=== PATIENT | female | born 1955 | race Caucasian/White ===

== ENCOUNTER 2017-01-09 22:01 | Emergency (ER) | payer MEDICARE ==
[~2017-01-09] VITALS: Ht 167.6 cm; Wt 82.6 kg
[~2017-01-09 22:01] MED LIST: ALPRAZOLAM0.25 MG PO; ASPIRIN FOR CHI81 MG PO; ATENOLOL25 MG PO; AZELAIC ACID; BENTYL20 MG PO; CARAFATE 1GM TAB1 GM PO; CLARITIN 10MG T10 MG PO; DILAUDID2 MG PO; FLEXERIL10 MG PO; GABAPENTIN 400400 MG PO; IPRATROPIUM BROM3 M1 IH; KAPIDEX60 MG PO; LIPITOR20 MG PO; LOTREL1 CA1 PO; MEDROL 4MG. DOSE4 MG PO; OXYCODONE SR 2020 MG PO; PARAFON FORTE500 MG PO; QVAR0.08 MG/AC IH; VOLTAREN75 MG PO
--- OUTSIDE RECORDS SUMMARY | 2017-01-09 22:21 | External Medical Summary Rpt ---
Author Author , Organization [employer] Address Unknown Phone Unavailable Care Team Providers Care Staff Readiness Officer Name Role Phone FREDI CHAUDHARY Unavailable Unavailable SARATH FREDI SARATH, FREDI Unavailable Unavailable SARATH VIDYA COL, Unavailable Unavailable VIDYA COL BOLIEK NAZANIN, BOLIEK Unavailable Unavailable NAZANIN SOLIZ NAZANIN, SOLIZ Unavailable Unavailable NAZANIN SOLIZ NAZANIN, SOLIZ Unavailable Unavailable NAZANIN BURBERRY JEOVANNY, Unavailable Unavailable BURBERRY JEOVANNY [facility] Unavailable Unavailable AND [facility], [facility] MORTON TIF, MORTON Unavailable Unavailable TIF MORTON TIF, MORTON Unavailable Unavailable [facility], [facility] Unavailable Unavailable [facility], [facility] Unavailable Unavailable MARLENY [facility] Unavailable Unavailable [facility] Un[facility], [facility] BEATRIZ COYNE Unavailable Unavailable ELISHA PATHAK II JUSTIN, ZO Unavailable Unavailable II JUSTIN JESSICA FARMER Unavailable Unavailable [facility], JESSICA FARMER [facility] SHASHANK SMITH, SHASHANK Unavailable Unavailable [facility] Unavailable Unavailable AT [facility], [facility] AT [facility] ROCIO ZUÑIGA Unavailable Unavailable SWAPNA BRIANNA, Unavailable Unavailable SWAPNA BRIANNA SWAPNA BRIANNA, Unavailable Unavailable SWAPNA BRIANNA [facility], Unavailable Unavailable [facility], Unavailable Unavailable [facility] SCIFRES ANG, SCIFRES Unavailable Unavailable ANG SCIFRES ANG, SCIFRES Unavailable Unavailable ANG [facility] Unavailable Unavailable [facility], [facility] Unavailable Unavailable [facility], [facility], Unavailable Unavailable [facility], Unavailable Unavailable [facility] JAKE BRIANNA, JAKE BRIANNA Unavailable Unavailable JAKE BRIANNA, JAKE BRIANNA Unavailable Unavailable DANIEL PAZ, DANIEL Unavailable Unavailable JACKSON PAZ, DANIEL Unavailable Unavailable JACKSON Purpose Continuity of Care Document - 09-07-2013 through 2016 Problems Code Diagnosis DOS Provider Status 54132 SPINAL 12-27-2014 [facility] STENOSIS UNSPEC REGION OTH THAN CERVICAL 7245 UNSPECIFIED 12-27-2014 [facility] BACKACHE 10063 OBSTRUCTIVE 11-26-2014 [facility] 7231 CERVICALGIA 11-15-2014 SELENE EDVINE 7241 PAIN IN 11-15-2014 SEL[facility] DEVINE THORACIC SPINE 7391 NONALLOPATH 11-15-2014 SELENE DEVINE IC LESION OF CERVICAL REGION NEC 7392 NONALLOPATH 11-15-2014 SELENE DEVINE IC LESION OF THORACIC REGION NEC 7393 NONALLOPATH 11-15-2014 SELENE DEVINE IC LESION OF LUMBAR REGION NEC 7397 NONALLOPATH 11-15-2014 SELENE DEVINE IC LESION OF UPPER EXTREMITIES NEC 8472 LUMBAR 11-15-2014 SELENE DEVINE SPRAIN AND STRAIN 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 7244 THORACIC/RAMANA 10-10-2014 [facility] MBOSACRAL H SLEEP AND NEURITIS/RA REHA DICULITIS UNSPEC 35639 PAIN IN 07-30-2014 [facility] LOWER LEG INC V571 OTHER 07-30-2014 [facility] THERAPY INC 4019 UNSPECIFIED 06-01-2014 [facility]SSENTIAL CARDIOLOGY HYPERTENSIO AT CENT N 4148 OTHER SPEC 06-01-2014 [facility] CENT ISCHEMIC HEART DISEASE 7213 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 JESSICA FARMER SPONDYLOSIS [facility] WITHOUT MYELOPATHY 2724 OTHER AND 01-27-2014 [facility] UNSPECIFIED [facility] INC HYPERLIPIDE GIBRAN V5869 LONG-TERM 01-27-2014 [facility] (CURRENT[facility] USE OF INC OTHER MEDICATIONS 4778 ALLERGIC 01-25-2014 [facility] RHINITIS BRIANNA DUE TO OTHER ALLERGEN 98819 CORONARY 01-19-2014 [facility] [place] CORONARY ARTERY 5368 DYSPEPSIA&O 01-19-2014 [facility] THER SPEC HOSPITAL DISORDERS FUNCTION STOMACH 00773 UNSPECIFIED 01-19-2014 [facility] ARTHROPATHY SITE UNSPECIFIED 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 V7651 SPECIAL 01-19-2014 JAKE BRIANNA SCREENING FOR MALIGNANT NEOPLASMS COLON 4011 ESSENTIAL 01-15-2014 [facility] HYPERTENSIO CARDIOLOGY N, BENIGN AT CENT 16123 PES 01-02-2014 DANIEL JACKSON ANSERINUS TENDINITIS OR BURSITIS 58932 OTHER 01-01-2014 [facility] CHRONIC BRIANNA ALLERGIC CONJUNCTIVI TIS 4770 ALLERGIC 01-01-2014 SW[facility] RHINITIS BRIANNA DUE TO POLLEN 57110 EXTRINSIC 01-01-2014 SWAPNA ASTHMA, BRIANNA UNSPECIFIED 3384 CHRONIC 12-29-2013 FREDI CLEMENS PAIN SYNDROME 23830 OSTEOARTHRO 12-29-2013 FREID CLEMENS S INVLV MX SITES BUT NOT SPEC GEN V7612 OTHER 11-15-2013 [facility] MAMMOGRAM 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 4772 ALLERGIC 10-03-2013 SWAP[facility] RHINITIS BRIANNA DUE TO ANIMAL HAIR AND DANDER 09890 ASTHMA, 10-03-2013 [facility] , INC UNSPECIFIED STATUS V727 DIAGNOSTIC 10-03-2013 SWAP[facility] SKIN AND BRIANNA SENSITIZATI ON TESTS 3674 PRESBYOPIA 09-29-2013 SCIFRES ANG 09085 ESOPHAGEAL 09-14-2013 FREDI CLEMENS REFLUX 26330 UNS 09-14-2013 FREDI CLEMENS GASTRITIS&G ASTRODUODIT IS W/O MENTION HEMORR 4619 ACUTE 09-07-2013 FREDI CLEMENS SINUSITIS, UNSPECIFIED 9953 ALLERGY 09-07-2013 FREDI LCEMENS UNSPECIFIED NOT ELSEWHERE CLASSIFIED Procedures Procedure DOS Code Location Performer Comment ELECTRICA A4595 [facility] L 5 STIMULATO R SUPPLIES 2 LEAD PER MONTH ELECTRICA A4595 [facility] L 5 STIMULATO R SUPPLIES 2 LEAD PER MONTH FULL FACE A7030 PUMA PUMA MASK 5 HOME HOME USED MEDICAL MEDICAL W/POS EQUIPME EQUIPME ARWAY PRESS DEVICE EA FILTER A7038 PUMA PUMA DISPBL 5 HOME HOME USED MEDICAL MEDICAL W/POS EQUIPME EQUIPME ARWAY PRESSURE DEVICE TUBING A7037 PUMA BARTHOLOMEW USED WITH 5 HOME HOME POSITIVE MEDICAL MEDICAL AIRWAY EQUIPME EQUIPME PRESSURE DEVICE CHIROPRAC 31783 SELENE MORTON TIC 5 TIF TIF MANIPULAT TOR TX SPINAL 3-4 REGIONS CHIROPRAC 60731 SELENE MORTON TIC 5 TIF TIF MANIPLTV TX EXTRASPIN AL 1/> REGION CHIROPRAC 13508 SELENE MORTON TIC 5 TIF TIF MANIPLTV TX EXTRASPIN AL 1/> REGION CHIROPRAC 12220 SELENE MORTON TIC 5 TIF TIF MANIPULAT TOR TX SPINAL 3-4 REGIONS ELECTRICA A4595 [facility] EMPI INC L 5 STIMULATO R SUPPLIES 2 LEAD PER MONTH LEAD A4557 [facility] EMPI INC WIRES PER 5 PAIR FILTER A7039 PUMA PUMA NON 5 HOME HOME DISPBL MEDICAL MEDICAL USED EQUIPME EQUIPME W/POS ARWAY PRESS DEVICE FILTER A7038 PUMA PUMA DISPBL 5 HOME HOME USED MEDICAL MEDICAL W/POS EQUIPME EQUIPME ARWAY PRESSURE DEVICE POLYSOM 21089 [facility] ASIM 6/>YRS 5 [facility] SLEEP W/CPAP 4/> ADDL BEE ATTND LUMB L0627 PUMA PUMA ORTHOSIS 5 HOME HOME SAGIT MEDICAL MEDICAL CNTRL EQUIPME EQUIPME RIGID A&P PANEL PREFAB TENS E0730 [facility] EMPI INC DEVICE 5 4/MORE LEADS MULTI NERVE STIMULATI ON CHIROPRAC 81735 SELENE MORTON TIC 5 TIF TIF MANIPLTV TX EXTRASPIN AL 1/> REGION CHIROPRAC 27814 SELENE MORTON TIC 5 TIF TIF MANIPULAT TOR TX SPINAL 3-4 REGIONS FILTER A7038 PUMA PUMA DISPBL 4 HOME HOME USED MEDICAL MEDICAL W/POS EQUIPME EQUIPME ARWAY PRESSURE DEVICE TUBING A7037 PUMA PUMA USED WITH 4 HOME HOME POSITIVE MEDICAL MEDICAL AIRWAY EQUIPME EQUIPME PRESSURE DEVICE FACE MASK A7031 PUMA PUMA 4 HOME HOME INTERFACE MEDICAL MEDICAL REPLCMT EQUIPME EQUIPME FULL FACE MASK EA CHIROPRAC 79234 SELENE MORTON TIC 4 TIF TIF MANIPLTV TX EXTRASPIN AL 1/> REGION CHIROPRAC 70262 SELENE MORTON TIC 4 TIF TIF MANIPULAT TOR TX SPINAL 3-4 REGIONS TENS E0730 [facility] INC EMPI INC DEVICE 4 4/MORE LEADS MULTI NERVE STIMULATI ON THERAPEUT 51094 ANATOLIY COPE IC PX 1/> 4 [facility] AREAS INC INC EACH 15 MIN EXERCISES FULL FACE A7030 PUMA PUMA MASK 4 HOME HOME USED MEDICAL MEDICAL W/POS EQUIPME EQUIPME ARWAY PRESS DEVICE EA FILTER A7038 PUMA BARTHOLOMEW DISPBL 4 HOME HOME USED MEDICAL MEDICAL W/POS EQUIPME EQUIPME ARWAY PRESSURE DEVICE HEADGEAR A7035 PUMA PUMA USED 4 HOME HOME W/POSITIV MEDICAL MEDICAL E AIRWAY EQUIPME EQUIPME PRESSURE DEVICE THERAPEUT 86050 ANAT[facility]Y COPE IC PX 1/> 4 [facility] AREAS INC INC EACH 15 MIN EXERCISES APPL 03822 AN[facility] COPE MODALITY 4 [facility] 1/> AREAS INC INC ELEC STIMJ EA 15 MIN CHIROPRAC 97920 SELENE MORTON TIC 4 TIF TIF MANIPLTV TX EXTRASPIN AL 1/> REGION CHIROPRAC 34829 SELENE MORTON TIC 4 TIF TIF MANIPULAT TOR TX SPINAL 3-4 REGIONS THERAPEUT 71361 ANATOLIY COPE IC PX 1/> 4 [facility] AREAS INC INC EACH 15 MIN EXERCISES THERAPEUT 99264 ANATOLIY COPE IC PX 1/> 4 [facility] AREAS INC INC EACH 15 MIN EXERCISES CHIROPRAC 78330 SELENE MORTON TIC 4 TIF TIF MANIPULAT TOR TX SPINAL 3-4 REGIONS CHIROPRAC 95107 SELENE MORTON TIC 4 TIF TIF MANIPLTV TX EXTRASPIN AL 1/> REGION CHIROPRAC 93913 SELENE MORTON TIC 4 TIF TIF MANIPLTV TX EXTRASPIN AL 1/> REGION APPL 63213 SELENE MORTON MODALITY 4 TIF TIF 1/> AREAS ELEC STIMJ UNATTENDE D CHIROPRAC 34326 SELENE MORTON TIC 4 TIF TIF MANIPULAT TOR TX SPINAL 3-4 REGIONS CHIROPRAC 31477 SELENE MORTON TIC 4 TIF TIF MANIPULAT TOR TX SPINAL 3-4 REGIONS APPL 23809 SELENE MORTON MODALITY 4 TIF TIF 1/> AREAS ELEC STIMJ UNATTENDE D CHIROPRAC 48445 SELENE MORTON TIC 4 TIF TIF MANIPLTV TX EXTRASPIN AL 1/> REGION CHIROPRAC 56454 SELENE MORTON TIC 4 TIF TIF MANIPLTV TX EXTRASPIN AL 1/> REGION APPL 65500 SELENE MORTON MODALITY 4 TIF TIF 1/> AREAS ELEC STIMJ UNATTENDE D CHIROPRAC 10141 SELENE MORTON TIC 4 TIF TIF MANIPULAT TOR TX SPINAL 3-4 REGIONS CHIROPRAC 73954 SELENE MORTON TIC 4 TIF TIF MANIPULAT TOR TX SPINAL 3-4 REGIONS CHIROPRAC 18496 SELENE MORTON TIC 4 TIF TIF MANIPLTV TX EXTRASPIN AL 1/> REGION APPL 87420 SELENE MORTON MODALITY 4 TIF TIF 1/> AREAS ELEC STIMJ UNATTENDE D RINGERS J7120 JESSICA FARMER LACTATE 4 E. FARMER CRISTY INFUSION [facility] UP TO 1000 CC RINGERS J7120 JESSICA FARMER LACTATE 4 E. FARMER CRISTY INFUSION MDPLC UP TO 1000 CC LIPID 15787 [facility] COPE PANEL 4 [facility] INC INC HEPATIC 24248 ANATOLIY COPE FUNCTION 4 [facility] PANEL INC INC PROF SVCS 37640 SWAPNA SWAPNA ALLG 4 BRIANNA BRIANNA IMMNTX X W/PRV ALLGIC XTRCS NJXS HUMDIFIR E0562 PUMA BARTHOLOMEW HEATED 4 HOME HOME USED MEDICAL MEDICAL W/POS EQUIPME EQUIPME ARWAY PRESSURE DEVICE ANES 92360 BURBERRY BURBERRY LOWER 4 JEOVANNY JEOVANNY INTESTINE ENDOSCOPY DISTAL DUODENUM INJECTION J[address] LIDOCAINE HCL INTRAVENO US INFUS 10 MG COLOREC G[address] SCR; COLNSCPY NOT MEET HI RISK COLONOSCO 93108 JAKE BRIANNA JAKE BRIANNA PY FLX DX 4 W/COLLJ SPEC WHEN PFRMD PRESSURIZ 56135 [facility] ED/[address] SSURIZED INHALATIO N TREATMENT APPL 77784 [facility] COPE MODALITY 4 [facility] 1/> AREAS INC INC ELEC STIMJ UNATTENDE D APPLICATI 63434 ANAT[facility] COPE ON 4 [facility] MODALITY INC INC 1/> AREAS HOT/COLD PACKS APPL 15841 ANAT[facility] COPE MODALITY 4 [facility] 1/> AREAS INC INC ULTRASOUN D EA 15 MIN THERAPEUT 76286 ANATOLIY COPE IC PX 1/> 4 [facility] AREAS INC INC EACH 15 MIN EXERCISES PHYSICAL 15033 ANATOLIY HENDERSON THERAPY 4 [facility]OS[facility] ELISHA EVALUATIO INC N PREPJ& 63046 SWAPNA SWAPNA ALLERGEN 4 BRIANNA BRIANNA IMMUNOTHE RAPY 1/CAMPUS SECURITY DIRECTOR ANTIGEN TUBING A7037 PUMA PUMA USED WITH 4 HOME HOME POSITIVE MEDICAL MEDICAL AIRWAY EQUIPME EQUIPME PRESSURE DEVICE FULL FACE A7030 PUMA PUMA MASK 4 HOME HOME USED MEDICAL MEDICAL W/POS EQUIPME EQUIPME ARWAY PRESS DEVICE EA HEADGEAR A7035 PUMA PUMA USED 4 HOME HOME W/POSITIV MEDICAL MEDICAL E AIRWAY EQUIPME EQUIPME PRESSURE DEVICE FILTER A7039 PUMA PUMA NON 4 HOME HOME DISPBL MEDICAL MEDICAL USED EQUIPME EQUIPME W/POS ARWAY PRESS DEVICE FILTER A7038 PUMA PUMA DISPBL 4 HOME HOME USED MEDICAL MEDICAL W/POS EQUIPME EQUIPME ARWAY PRESSURE DEVICE RADIOLOGI 30557 DANIEL SANCHEZ C EXAM 4 JACKSON JACKSON KNEE COMPLETE 4/MORE VIEWS SPMTRY 66467 SWAPNA SWAPNA W/VC 4 BRIANNA BRIANNA EXPIRATOR Y CELESTE W/WO MXML VOL VNTJ CHIROPRAC 90057 VIDYA DASILVA TIC 4 COL COL MANIPULAT TOR TX SPINAL 3-4 REGIONS MANUAL 87407 VIDYA DASILVA THERAPY 4 COL COL TQS 1/> REGIONS EACH 15 MINUTES MANUAL 99523 VIDYA DASILVA THERAPY 4 COL COL TQS 1/> REGIONS EACH 15 MINUTES APPL 43820 VIDYA COTTERON MODALITY 4 COL COL 1/> AREAS TRACTION MECHANICA L APPL 20869 VIDYA COTTERON MODALITY 4 COL COL 1/> AREAS ELEC STIMJ UNATTENDE D CHIROPRAC 67137 VIDYA COTTERON TIC 4 COL COL MANIPULAT TOR TX SPINAL 3-4 REGIONS SCREENING G0202 SHASHANK ENCARNACION 4 MAR MAR MAMMOGRAP HY RICHY INCL CAD WHEN PERFORMD 60556 SHASHANK ENCARNACION AIDED 4 MAR MAR DETECTION SCREENING MAMMOGRAP HY APPL 93454 VIDYA COTTERON MODALITY 4 COL COL 1/> AREAS TRACTION MECHANICA L MANUAL 07105 VIDYA COTTERON THERAPY 4 COL COL TQS 1/> REGIONS EACH 15 MINUTES APPL 91722 VIDYA COTTERON MODALITY 4 COL COL 1/> AREAS ELEC STIMJ UNATTENDE D CHIROPRAC 29225 VIDYA COTTERON TIC 4 COL COL MANIPULAT TOR TX SPINAL 3-4 REGIONS APPL 77564 VIDYA COTTERON MODALITY 4 COL COL 1/> AREAS ELEC STIMJ UNATTENDE D MANUAL 34174 VIDYA COTTERON THERAPY 4 COL COL TQS 1/> REGIONS EACH 15 MINUTES CHIROPRAC 42041 VIDYA COTTERON TIC 4 COL COL MANIPULAT TOR TX SPINAL 3-4 REGIONS APPL 72254 VIDYA COTTERON MODALITY 4 COL COL 1/> AREAS TRACTION MECHANICA L APPL 25450 VIDYA COTTERON MODALITY 4 COL COL 1/> AREAS TRACTION MECHANICA L CHIROPRAC 66840 VIDYA COTTERON TIC 4 COL COL MANIPULAT TOR TX SPINAL 3-4 REGIONS MANUAL 02917 VIDYA HOPKINSESON THERAPY 4 COL COL TQS 1/> REGIONS EACH 15 MINUTES APPL 63668 VIDYA COTTERON MODALITY 4 COL COL 1/> AREAS ELEC STIMJ UNATTENDE D DRUG SCR G0434 ROCIO HAM ROCIO HAM NOT 4 CHROMATOG RAPHIC; ANY NUMBER PT ENC BRNCDILAT 85668 SWAPNA SWAPNA RSPSE 4 BRIANNA BRIANNA SPMTRY PRE&POST- BRNCDILAT ADMN SPACR A4627 MT MED MT MED BAG/RESRV 4 EQUIPMENT EQUIPMENT OR W/WO INC INC MASK W/METRD DOSE INHAL TUBING A7037 SWAPNA SWAPNA USED WITH 4 BRIANNA BRIANNA POSITIVE AIRWAY PRESSURE DEVICE PRESSURIZ 38624 SWAPNA SWAPNA ED/NONPRE 4 BRIANNA BRIANNA SSURIZED INHALATIO N TREATMENT PERCUTANE 92864 SWAPNA SWAPNA OUS TESTS 4 BRIANNA BRIANNA W/ALLERGE ANCA EXTRACTS INTRACUTA 98071 SWAPNA SWAPNA NEOUS 4 BRIANNA BRIANNA TESTS W/ALLERGE ANCA EXTRACTS DEMO&/HYUN 12664 SWAPNA SWAPNA L OF PT 4 BRIANNA BRIANNA UTILIZ AERSL GEN/NEB/I NHLR/IP DETERMINA 56770 SCIFRES SCIFRES TION 4 ANG ANG REFRACTIV E STATE OPHTH 88244 SCIFRES SCIFRES MEDICAL 4 ANG ANG XM&EVAL COMPRE NEW PT 1/> VST DRUG SCR G0434 ROCIO BOBO NOT 4 CHROMATOG RAPHIC; ANY NUMBER PT ENC APPL 79404 VIDYA DASILVA MODALITY 4 COL COL 1/> AREAS TRACTION MECHANICA L MANUAL 52389 VIDYA DASILVA THERAPY 4 COL COL TQS 1/> REGIONS EACH 15 MINUTES CHIROPRAC 29702 VIDYA DASILVA TIC 4 COL COL MANIPULAT TOR TX SPINAL 3-4 REGIONS APPLICATI 71927 VIDYA DASILVA ON 4 COL COL MODALITY 1/> AREAS HOT/COLD PACKS APPL 22052 VIDYA DASILVA MODALITY 4 COL COL 1/> AREAS ELEC STIMJ UNATTENDE D FILTER A7038 PUMA BARTHOLOMEW DISPBL 4 HOME HOME USED MEDICAL MEDICAL W/POS EQUIPME EQUIPME ARWAY PRESSURE DEVICE TUBING A7037 PUMA BARTHOLOMEW USED WITH 4 HOME HOME POSITIVE MEDICAL MEDICAL AIRWAY EQUIPME EQUIPME PRESSURE DEVICE FILTER A7039 PUMA BARTHOLOMEW NON 4 HOME HOME DISPBL MEDICAL MEDICAL USED EQUIPME EQUIPME W/POS ARWAY PRESS DEVICE HEADGEAR A7035 PUMA DORADORELL USED 4 HOME HOME W/POSITIV MEDICAL MEDICAL E AIRWAY EQUIPME EQUIPME PRESSURE DEVICE NASL A7034 PUMA BARTHOLOMEW INTRFCE 4 HOME HOME POS ARWAY MEDICAL MEDICAL PRSS EQUIPME EQUIPME DEVC W/WO HEAD STRAP Encounters Encounter Start End Date Code Location Performer Type Date OFFICE 85393 SELENE COFFEY 5 5 [facility] T VISIT 10 MINUTES OFFICE 08100 [facility] PATHAK II OUTPATIEN 5 5 [facility] SLEEP JUSTIN T VISIT AND REHA 15 MINUTES [facility] - 5 5 [facility] - 4 5 [facility] [address] [facility] VISIT CARDIOLOG 15 Y AT CENT MINUTES OFFICE 45495 SELENE COFFEY 4 4 TIF TIF T NEW 30 MINUTES [facility]OSPITAL [facility] - 4 4 [facility] - 4 4 [facility] NAZ[facility]N VIS[facility] C[facility]IOLOG 15 Y AT CENT MINUTES [facility]OSPITAL [facility] - 4 4 [facility]PATI[facility] OFFICE 87231 DANIEL SANCHEZ CONSULTAT 4 4 JACKSON JACKSON RODRIGUEZ NEW/ESTAB PATIENT 60 MIN OFFICE 60752 SWAPNACRISTIANA BARCENAS OUTPATIEN 4 4 BRIANNA BRIANNA T VISIT 25 MINUTES OFFICE 23481 FREDI RAI OUTPATIEN 4 4 SARATH SARATH T VISIT 15 MINUTES OFFICE 45591 ROCIOREGLA BOBO [facility] OUTPATIEN 4 4 T VISIT 15 MINUTES OFFICE 71173 ROCIO BOBO [facility] OUTPATIEN 4 4 T VISIT 15 MINUTES OFFICE 71626 VIDYA DASILVA OUTPATIEN 4 4 COL COL T VISIT 10 MINUTES OFFICE 39880 [facility] OUTPATIEN 4 [address] [facility] - 4 4 [facility] OUTPATIEN T OFFICE 33600 [facility] OUTPATIEN 4 4 T VISIT 15 MINUTES OFFICE 70366 MARTÍNEZ SOLIZ OUTPATIEN 4 4 NAZANIN NAZANIN T NEW 30 MINUTES OFFICE 11245 [facility] OUTPATIEN 4 4 T VISIT 15 MINUTES OFFICE 26015 [facility] OUTPATIEN 4 4 T VISIT 15 MINUTES OFFICE 87550 SWAPNA BARCENAS CONSULTAT 4 4 BRIANNA BRIANNA ION NEW/ESTAB PATIENT 80 MIN OFFICE 54676 VIDYA DASILVA OUTPATIEN 4 4 COL COL T NEW 20 MINUTES OFFICE 54889 ROCIOREGLA [facility] OUTPATIEN 4 4 T NEW 45 MINUTES OFFICE 47379 ABDULKADIRRODRIGUE FREDI OUTPATIEN 4 4 SARATH SARATH T VISIT 15 MINUTES OFFICE 38580 FREDI RAI OUTPATIEN 4 4 SARATH SARATH T VISIT 15 MINUTES
--- OUTSIDE RECORDS SUMMARY | 2017-01-09 22:21 | External Medical Summary Rpt ---
Author Author , Organization [employer] Address Unknown Phone Unavailable Care Team Providers Care Game Advisor Name Role Phone FREDI CHAUDHARY Unavailable Unavailable [...] [facility] Unavailable Unavailable EILSHA PATHAK II JUSTIN, ZO Unavailable Unavailable II JUSTIN JESSICA FARMER Unavailable Unavailable MDPLC, JESSICA FARMER MDPLC SHASHANK SMITH, SHASHANK Unavailable Unavailable [facility] Unavailable Unavailable AT [facility], [facility] AT [facility] ROCIO ZUÑIGA Unavailable Unavailable SWAPNA BRIANNA, Unavailable [...] Unavailable Unavailable [facility], [facility], Unavailable Unavailable [facility], Unavailable Unavailable [facility] JAKE BRIANNA, JAKE BRIANNA Unavailable Unavailable JAKE BRIANNA, JAKE BRIANNA Unavailable Unavailable DANIEL PAZ, DANIEL Unavailable Unavailable JACKSON PAZ, DANIEL Unavailable Unavailable JACKSON Purpose Continuity of Care Document - 09-07-2013 through 2016 Problems Code Diagnosis DOS Provider Status 97926 SPINAL 12-27-2014 [facility] STENOSIS UNSPEC REGION OTH THAN CERVICAL 7245 UNSPECIFIED 12-27-2014 [facility] BACKACHE 98416 OBSTRUCTIVE 11-26-2014 [facility] 7231 CERVICALGIA 11-15-2014 SELENE DEVINE 7241 PAIN IN 11-15-2014 SELENE DEVINE THORACIC SPINE 7391 NONALLOPATH 11-15-2014 SELENE DEVINE IC LESION OF CERVICAL REGION NEC 7392 NONALLOPATH 11-15-2014 SELENE DEVINE IC LESION OF THORACIC REGION NEC 7393 NONALLOPATH 11-15-2014 SELENE DEVINE IC LESION OF LUMBAR REGION NEC 7397 NONALLOPATH 11-15-2014 SELENE DEVINE IC LESION OF UPPER EXTREMITIES NEC 8472 LUMBAR 11-15-2014 SELENE DEVINE SPRAIN AND STRAIN 00959 DEGEN 10-10-2014 [facility]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 CHRONIC AT CENT ISCHEMIC HEART DISEASE 7213 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 JESSICA FARMER SPONDYLOSIS MDPLC WITHOUT MYELOPATHY 2724 OTHER AND 01-27-2014 [facility] UNSPECIFIED [facility] HYPERLIPIDE GIBRAN V5869 LONG-TERM 01-27-2014 [facility] (CURRENT) [facility] USE OF INC OTHER MEDICATIONS 4778 ALLERGIC 01-25-2014 SW[facility] RHINITIS BRIANNA DUE TO OTHER ALLERGEN 33821 CORONARY 01-19-2014 [facility] [place] CORONARY ARTERY 5368 DYSPEPSIA&O 01-19-2014 [facility] THER SPEC HOSPITAL DISORDERS FUNCTION STOMACH 30020 UNSPECIFIED 01-19-2014 [facility] ARTHROPATHY SITE UNSPECIFIED 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 UNSPEC V7651 SPECIAL 01-19-2014 JAKE BRIANNA SCREENING FOR MALIGNANT NEOPLASMS COLON 4011 ESSENTIAL 01-15-2014 [facility] HYPERTENSIO CARDIOLOGY N, BENIGN AT CENT 74153 PES 01-02-2014 DANIEL JACKSON ANSERINUS TENDINITIS OR BURSITIS 66043 OTHER 01-01-2014 [facility] CHRONIC BRIANNA ALLERGIC CONJUNCTIVI TIS 4770 ALLERGIC 01-01-2014 SWAP[facility] RHINITIS BRIANNA DUE TO POLLEN 54917 EXTRINSIC 01-01-2014 SWAPNA ASTHMA, BRIANNA UNSPECIFIED 3384 CHRONIC 12-29-2013 FREDI CLEMENS PAIN SYNDROME 77903 OSTEOARTHRO 12-29-2013 FREDI CLEMENS S INVLV MX SITES BUT NOT SPEC GEN V7612 OTHER 11-15-2013 [facility] MAMMOGRAM 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 27299 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 4772 ALLERGIC 10-03-2013 SWAP[facility] RHINITIS BRIANNA DUE TO ANIMAL HAIR AND DANDER 65207 ASTHMA, 10-03-2013 [facility] UNSPECIFIED EQUIPMENT , INC UNSPECIFIED STATUS V727 DIAGNOSTIC 10-03-2013 SWAP[facility] SKIN AND BRIANNA SENSITIZATI ON TESTS 3674 PRESBYOPIA 09-29-2013 SCIFRES ANG 51902 ESOPHAGEAL 09-14-2013 FREDI CLEMENS REFLUX 70740 UNS 09-14-2013 FREDI CLEMENS GASTRITIS&G ASTRODUODIT IS W/O MENTION HEMORR 4619 ACUTE 09-07-2013 FREDI CLEMENS SINUSITIS, UNSPECIFIED 9953 ALLERGY 09-07-2013 FREDI CLEMENS UNSPECIFIED NOT ELSEWHERE CLASSIFIED Procedures Procedure DOS [...] MEDICAL AIRWAY EQUIPME EQUIPME PRESSURE DEVICE CHIROPRAC 71709 SELENE MORTON TIC 5 TIF TIF MANIPULAT TOR TX SPINAL 3-4 REGIONS CHIROPRAC 50065 SELENE MORTON TIC 5 TIF TIF MANIPLTV TX EXTRASPIN AL 1/> REGION CHIROPRAC 78549 SELENE MORTON TIC 5 TIF TIF MANIPLTV TX EXTRASPIN AL 1/> REGION CHIROPRAC 97800 SELENE MORTON TIC 5 TIF TIF MANIPULAT [...] W/POS EQUIPME EQUIPME ARWAY PRESSURE DEVICE POLYSOM 24376 [facility] ASIM 6/>YRS 5 [facility] SLEEP W/CPAP 4/> ADDL BEE ATTND LUMB L0627 [facility] PU[facility] ORTHOSIS 5 HOME HOME SAGIT MEDICAL MEDICAL CNTRL EQUIPME EQUIPME RIGID A&P PANEL PREFAB TENS E0730 [facility] EMPI INC DEVICE 5 4/MORE LEADS MULTI NERVE STIMULATI ON CHIROPRAC 47815 SELENE MORTON TIC 5 TIF TIF MANIPLTV TX EXTRASPIN AL 1/> REGION CHIROPRAC 87240 SELENE MORTNO TIC 5 TIF TIF MANIPULAT TOR TX SPINAL 3-4 REGIONS FILTER A7038 PUMA PUMA DISPBL 4 HOME HOME USED MEDICAL MEDICAL W/POS EQUIPME EQUIPME ARWAY PRESSURE DEVICE TUBING A7037 PU[facility] PUMA USED WITH 4 HOME HOME POSITIVE MEDICAL MEDICAL AIRWAY EQUIPME EQUIPME PRESSURE DEVICE FACE MASK A7031 PUMA PUMA 4 HOME HOME INTERFACE MEDICAL MEDICAL REPLCMT EQUIPME EQUIPME FULL FACE MASK EA CHIROPRAC 15993 SELENE MORTON TIC 4 TIF TIF MANIPLTV TX EXTRASPIN AL 1/> REGION CHIROPRAC 54401 SELENE MORTON TIC 4 TIF TIF MANIPULAT TOR TX SPINAL 3-4 REGIONS TENS E0730 [facility] INC EMPI INC DEVICE 4 4/MORE LEADS MULTI NERVE STIMULATI ON THERAPEUT 14239 ANATOLIY COPE IC PX 1/> 4 MEM [...] E AIRWAY EQUIPME EQUIPME PRESSURE DEVICE THERAPEUT 31740 ANATOLIY COPE IC PX 1/> 4 [facility] AREAS INC INC EACH 15 MIN EXERCISES APPL 95994 ANATOLIY COPE MODALITY 4 [facility] 1/> AREAS INC INC ELEC STIMJ EA 15 MIN CHIROPRAC 64480 SELENE MORTON TIC 4 TIF TIF MANIPLTV TX EXTRASPIN AL 1/> REGION CHIROPRAC 92384 SELENE MORTON TIC 4 TIF TIF MANIPULAT TOR TX SPINAL 3-4 REGIONS THERAPEUT 70167 ANATOLIY COPE IC PX 1/> 4 [facility] AREAS INC INC EACH 15 MIN EXERCISES THERAPEUT 74032 ANATOLIY COPE IC PX 1/> 4 [facility] AREAS INC INC EACH 15 MIN EXERCISES CHIROPRAC 51135 SELENE MORTON TIC 4 TIF TIF MANIPULAT TOR TX SPINAL 3-4 REGIONS CHIROPRAC 08665 SELENE MORTON TIC 4 TIF TIF MANIPLTV TX EXTRASPIN AL 1/> REGION CHIROPRAC 25100 SELENE MORTON TIC 4 TIF TIF MANIPLTV TX EXTRASPIN AL 1/> REGION APPL 35023 SELENE MORTON MODALITY 4 TIF TIF 1/> AREAS ELEC STIMJ UNATTENDE D CHIROPRAC 35021 SELENE MORTON TIC 4 TIF TIF MANIPULAT TOR TX SPINAL 3-4 REGIONS CHIROPRAC 63962 SELENE MORTON TIC 4 TIF TIF MANIPULAT TOR TX SPINAL 3-4 REGIONS APPL 83274 SELENE MORTON MODALITY 4 TIF TIF 1/> AREAS ELEC STIMJ UNATTENDE D CHIROPRAC 74648 SELENE MORTON TIC 4 TIF TIF MANIPLTV TX EXTRASPIN AL 1/> REGION CHIROPRAC 25760 SELENE MORTON TIC 4 TIF TIF MANIPLTV TX EXTRASPIN AL 1/> REGION APPL 20868 SELENE MORTON MODALITY 4 TIF TIF 1/> AREAS ELEC STIMJ UNATTENDE D CHIROPRAC 89556 SELENE MORTON TIC 4 TIF TIF MANIPULAT TOR TX SPINAL 3-4 REGIONS CHIROPRAC 04481 SELENE MORTON TIC 4 TIF TIF MANIPULAT TOR TX SPINAL 3-4 REGIONS CHIROPRAC 45883 SELENE MORTON TIC 4 TIF TIF MANIPLTV TX EXTRASPIN AL 1/> REGION APPL 19349 SELENE MORTON MODALITY 4 TIF TIF 1/> AREAS ELEC STIMJ UNATTENDE D RINGERS J7120 JESSICA FARMER LACTATE 4 E. FARMER CRISTY INFUSION MDPLC UP TO 1000 CC RINGERS J7120 JESSICA FARMER LACTATE 4 E. FARMER CRISTY INFUSION MDPLC UP TO 1000 CC LIPID 97305 ANATOLIY COPE PANEL 4 [facility] INC INC HEPATIC 40283 ANATOLIY COPE FUNCTION 4 [facility] PANEL INC INC PROF SVCS 74542 SWAPNA SWAPNA ALLG 4 BRIANNA BRIANNA IMMNTX X W/PRV ALLGIC XTRCS NJXS HUMDIFIR E0562 [facility] BARTHOLOMEW HEATED 4 HOME HOME USED MEDICAL MEDICAL W/POS EQUIPME EQUIPME ARWAY PRESSURE DEVICE ANES 26100 BURBERRY BURBERRY LOWER 4 JEOVANNY JEOVANNY INTESTINE ENDOSCOPY DISTAL DUODENUM INJECTION J[address] LIDOCAINE HCL INTRAVENO US INFUS 10 MG COLOREC G[address] SCR; COLNSCPY NOT MEET HI RISK COLONOSCO 05299 JAKE BRIANNA JAKE BRIANNA PY FLX DX 4 W/COLLJ SPEC WHEN PFRMD PRESSURIZ 75372 [facility] ED/[address] SSURIZED INHALATIO N TREATMENT APPL 25861 ANATOLIY COPE MODALITY 4 [facility] 1/> AREAS INC INC ELEC STIMJ UNATTENDE D APPLICATI 57951 ANATOLIY COPE ON 4 [facility] MODALITY INC INC 1/> AREAS HOT/COLD PACKS APPL 42215 ANATOLIY OCPE MODALITY 4 [facility] 1/> AREAS INC INC ULTRASOUN D EA 15 MIN THERAPEUT 05863 ANATOLIY COPE IC PX 1/> 4 [facility] ARE[facility] INC INC EACH 15 MIN EXERCISES PHYSICAL 24150 ANATOLIY HENDERSON THERAPY 4 [facility] ELISHA EVALUATIO INC N PREPJ& 53465 SWAPNA SWAPNA ALLERGEN 4 BRIANNA BRIANNA IMMUNOTHE RAPY 1/LEAD WELDER ANTIGEN TUBING A7037 PUMA PUMA USED WITH [...] W/POS EQUIPME EQUIPME ARWAY PRESSURE DEVICE RADIOLOGI 37525 DANIEL SANCHEZ C EXAM 4 JACKSON JACKSON KNEE COMPLETE 4/MORE VIEWS SPMTRY 66280 SWAPNA SWAPNA W/VC 4 BRIANNA BRIANNA EXPIRATOR Y CELESTE W/WO MXML VOL VNTJ CHIROPRAC 52163 VIDYA DASILVA TIC 4 COL COL MANIPULAT TOR TX SPINAL 3-4 REGIONS MANUAL 69917 VIDYA DASILVA THERAPY 4 COL COL TQS 1/> REGIONS EACH 15 MINUTES MANUAL 40883 VIDYA DASILVA THERAPY 4 COL COL TQS 1/> REGIONS EACH 15 MINUTES APPL 76059 VIDYA COTTERON MODALITY 4 COL COL 1/> AREAS TRACTION MECHANICA L APPL 28387 VIDYA COTTERON MODALITY 4 COL COL 1/> AREAS ELEC STIMJ UNATTENDE D CHIROPRAC 74326 VIDYA COTTERON TIC 4 COL COL MANIPULAT TOR TX SPINAL 3-4 REGIONS SCREENING G0202 SHASHANK ENCARNACION 4 MAR MAR MAMMOGRAP HY RICHY INCL CAD WHEN PERFORMD 84243 SHASHANK ENCARNACION AIDED 4 MAR MAR DETECTION SCREENING MAMMOGRAP HY APPL 45622 VIDYA COTTERON MODALITY 4 COL COL 1/> AREAS TRACTION MECHANICA L MANUAL 80852 VIDYA COTTERON THERAPY 4 COL COL TQS 1/> REGIONS EACH 15 MINUTES APPL 04658 VIDYA COTTERON MODALITY 4 COL COL 1/> AREAS ELEC STIMJ UNATTENDE D CHIROPRAC 44748 VIDYA COTTERON TIC 4 COL COL MANIPULAT TOR TX SPINAL 3-4 REGIONS APPL 57865 VIDYA COTTERON MODALITY 4 COL COL 1/> AREAS ELEC STIMJ UNATTENDE D MANUAL 08832 VIDYA COTTERON THERAPY 4 COL COL TQS 1/> REGIONS EACH 15 MINUTES CHIROPRAC 97220 VIDYA COTTERON TIC 4 COL COL MANIPULAT TOR TX SPINAL 3-4 REGIONS APPL 39079 VIDYA COTTERON MODALITY 4 COL COL 1/> AREAS TRACTION MECHANICA L APPL 76577 VIDYA COTTERON MODALITY 4 COL COL 1/> AREAS TRACTION MECHANICA L CHIROPRAC 09453 VIDYA COTTERON TIC 4 COL COL MANIPULAT TOR TX SPINAL 3-4 REGIONS MANUAL 04855 VIDYA HOPKINSESON THERAPY 4 COL COL TQS 1/> REGIONS EACH 15 MINUTES APPL 80094 VIDYA COTTERON MODALITY 4 COL COL 1/> AREAS ELEC STIMJ UNATTENDE D DRUG SCR G0434 [facility] HAM ROC[facility] HAM NOT 4 CHROMATOG RAPHIC; ANY NUMBER PT ENC BRNCDILAT 32462 SWAPNA SWAPNA RSPSE 4 BRIANNA BRIANNA SPMTRY PRE&POST- BRNCDILAT ADMN SPACR A4627 MT MED MT MED BAG/RESRV 4 EQUIPMENT EQUIPMENT OR W/WO INC INC MASK W/METRD DOSE INHAL TUBING A7037 SWAPNA SWAPNA USED WITH 4 BRIANNA BRIANNA POSITIVE AIRWAY PRESSURE DEVICE PRESSURIZ 97773 SWAPNA SWAPNA ED/NONPRE 4 BRIANNA BRIANNA SSURIZED INHALATIO N TREATMENT PERCUTANE 48529 SWAPNA SWAPNA OUS TESTS 4 BRIANNA BRIANNA W/ALLERGE ANCA EXTRACTS INTRACUTA 64844 SWAPNA SWAPNA NEOUS 4 BRIANNA BRIANNA TESTS W/ALLERGE ANCA EXTRACTS DEMO&/HYUN 55057 SWAPNA SWAPNA L OF PT 4 BRIANNA BRIANNA UTILIZ AERSL GEN/NEB/I NHLR/IP DETERMINA 98055 SCIFRES SCIFRES TION 4 ANG ANG REFRACTIV E STATE OPHTH 97622 SCIFRES SCIFRES MEDICAL 4 ANG ANG XM&EVAL COMPRE NEW PT 1/> VST DRUG SCR G0434 ROC[facility] BOBO NOT 4 CHROMATOG RAPHIC; ANY NUMBER PT ENC APPL 42824 VIDYA DASILVA MODALITY 4 COL COL 1/> AREAS TRACTION MECHANICA L MANUAL 26285 VIDYA DASILVA THERAPY 4 COL COL TQS 1/> REGIONS EACH 15 MINUTES CHIROPRAC 26897 VIDYA DASILVA TIC 4 COL COL MANIPULAT TOR TX SPINAL 3-4 REGIONS APPLICATI 34952 VIDYA DASIVLA ON 4 COL COL MODALITY 1/> AREAS HOT/COLD PACKS APPL 07604 VIDYA DASILVA MODALITY 4 COL COL 1/> [...] Date Code Location Performer Type Date OFFICE 11566 SELENE COFFEY 5 5 [facility] T VISIT 10 MINUTES OFFICE 04316 [facility] PATHAK II OUTPATIEN 5 5 [facility] SLEEP JUSTIN T VISIT AND REHA 15 MINUTES [facility] - 5 5 [facility] ANATOLIY - 4 5 [facility] OUTPATI[facility] JOSE JUAN OUTPATIEN 4 4 [facility] VISIT CARDIOLOG 15 Y AT CENT MINUTES OFFICE 05410 SELENE COFFEY 4 4 TIF TIF T NEW 30 MINUTES [facility]OSPITAL [facility] 4 4 [facility] - 4 4 [facility]OLOG 15 Y AT CENT MINUTES [facility]OSPITAL AN[facility] - 4 4 [facility] OUTPATIEN [facility] OFFICE 30106 DANIEL SANCHEZ CONSULTAT 4 4 JACKSON JACKSON RODRIGUEZ NEW/ESTAB PATIENT 60 MIN OFFICE 02680 SWAPNACRISTIANA BARCENAS OUTPATIEN 4 4 BRIANNA BRIANNA T VISIT 25 MINUTES OFFICE 31134 FREDI RAI OUTPATIEN 4 4 SARATH SARATH T VISIT 15 MINUTES OFFICE 43478 ROCIOREGLA BOBO [facility] OUTPATIEN 4 4 T VISIT 15 MINUTES OFFICE 89007 [facility] BOBO [facility] OUTPATIEN 4 4 T VISIT 15 MINUTES OFFICE 81615 VIDYA DASILVA OUTPATIEN 4 4 COL COL T VISIT 10 MINUTES OFFICE 31434 [facility] OUTPATI[facility] 4 4 T VISIT 15 MINUTES [facility] - 4 4 [facility] OUTPATIEN T OFFICE 79134 [facility] OUTPATIEN 4 4 T VISIT 15 MINUTES OFFICE 23001 MART[facility] SOLIZ OUTPATIEN 4 4 NAZANIN NAZANIN T NEW 30 MINUTES OFFICE 54107 [facility] OUTPATI[facility] 4 4 T VISIT 15 MINUTES OFFICE 41548 [facility] OUTPATIEN 4 4 T VISIT 15 MINUTES OFFICE 91663 SWAPNA BARCENAS CONSULTAT 4 4 BRIANNA BRIANNA ION NEW/ESTAB PATIENT 80 MIN OFFICE 18088 VIDYA DASILVA OUTPATIEN 4 4 COL COL T NEW 20 MINUTES OFFICE 28301 [facility]LA [facility] OUTPATIEN 4 4 T NEW 45 MINUTES OFFICE 91226 ABDULKADIRRODRIGUE FREDI OUTPATIEN 4 4 SARATH SARATH T VISIT 15 MINUTES OFFICE 99402 FREDI ARI OUTPATIEN 4 4 SARATH SARATH T VISIT 15 MINUTES
--- OUTSIDE RECORDS SUMMARY | 2017-01-09 22:23 | External Medical Summary Rpt ---
Demographics Preferred Language Wolof Marital Status Unknown Religion Affiliation Unknown Race Unknown Ethnic Group Unknown Author Author , Organization [employer] Address Unknown Phone Unavailable Purpose Continuity of Care Document - through 2016 Immunization No patient found.
--- OUTSIDE RECORDS SUMMARY | 2017-01-09 22:23 | External Medical Summary Rpt ---
Author Author , Organization [employer] Address Unknown Phone Unavailable Care Team Providers Care [employer] Supervisor Name Role Phone FREDI CHAUDHARY Unavailable Unavailable SARATH FREDI CHAUDHARY Unavailable Unavailable SARATH VIDYA COL, Unavailable Unavailable VIDYA COL BOLIEK NAZANIN, BOLIEK Unavailable Unavailable NAZANIN SOLIZ NAZANIN, SOLIZ Unavailable Unavailable NAZANIN SOLIZ NAZANIN, SOLIZ Unavailable Unavailable NAZANIN BURBERRY JEOVANNY, Unavailable Unavailable BURBERRY JEOVANNY [facility] Unavailable Unavailable AND [facility], [facility] SELENE TIF, MORTON Unavailable Unavailable TIF SELENE DEVINE, MORTON Unavailable Unavailable [facility], [facility] Unavailable Unavailable [facility], [facility] Unavailable Unavailable MARLENY [facility] Unavailable Unavailable [facility], [facility] BEATRIZ COYNE Unavailable Unavailable ELISHA PATHAK II JUSTIN, ZO Unavailable Unavailable II JUSTIN JESSICA FARMER Unavailable Unavailable [facility], JESSICA 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 AT [facility], [facility] AT [facility] ROCIO HAM, ROCIO HAM Unavailable Unavailable SWAPNA BRIANNA, Unavailable Unavailable SWAPNA [...] Unavailable Unavailable EQUIPME, [facility], Unavailable Unavailable [facility] Unavailable Unavailable [facility] JAKE BRIANNA, JAKE BRIANNA Unavailable Unavailable JAKE BRIANNA, JAKE BRIANNA Unavailable Unavailable DANIEL PAZ, DANIEL Unavailable Unavailable JACKSON PAZ, DANIEL Unavailable Unavailable JACKSON Purpose Continuity of Care Document - 09-07-2013 through 2016 Problems Code Diagnosis DOS Provider Status 57225 SPINAL 12-27-2014 [facility] STENOSIS UNSPEC REGION OTH THAN CERVICAL 7245 UNSPECIFIED 12-27-2014 [facility] BACKACHE 41918 OBSTRUCTIVE 11-26-2014 [facility] SLEEP HOME [facility] 7231 CERVICALGIA [...] LUMBAR 11-15-2014 SELENE DEVINE SPRAIN AND STRAIN 44005 DEGEN 10-10-2014 [facility]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 7244 THORACIC/RAMANA 10-10-2014 [facility] MBOSACRAL H SLEEP AND NEURITIS/RA REHA DICULITIS UNSPEC 33720 PAIN IN 07-30-2014 [facility] LOWER LEG INC V571 OTHER 07-30-2014 [facility] THERAPY INC 4019 UNSPECIFIED 06-01-2014 [facility] HYPERTENSIO AT CENT N 4148 OTHER SPEC 06-01-2014 [facility] FORMS CARDIOLOGY CHRONIC AT CENT ISCHEMIC HEART DISEASE 7213 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 JESSICA FARMER SPONDYLOSIS [facility] WITHOUT MYELOPATHY 2724 OTHER AND 01-27-2014 [facility] UNSPECIFIED [facility] INC HYPERLIPIDE GIBRAN V5869 LONG-TERM 01-27-2014 [facility] (CURRENT) [facility] USE OF INC OTHER MEDICATIONS 4778 ALLERGIC 01-25-2014 SWAPNA RHINITIS BRIANNA DUE TO OTHER ALLERGEN 80150 CORONARY 01-19-2014 [facility] OSIS METLAKATLA CORONARY ARTERY 5368 DYSPEPSIA&O 01-19-2014 [facility] THER SPEC HOSPITAL DISORDERS FUNCTION STOMACH 95735 UNSPECIFIED 01-19-2014 [facility] ARTHROPATHY SITE UNSPECIFIED 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 UNSPEC V7651 SPECIAL 01-19-2014 JAKE BRIANNA SCREENING FOR MALIGNANT NEOPLASMS COLON 4011 ESSENTIAL 01-15-2014 [facility] HYPERTENSIO CARDIOLOGY N, BENIGN AT CENT 12596 PES 01-02-2014 DANIEL JACKSON ANSERINUS TENDINITIS OR BURSITIS 75166 OTHER 01-01-2014 [facility] CHRONIC BRIANNA ALLERGIC CONJUNCTIVI TIS 4770 ALLERGIC 01-01-2014 [facility] RHINITIS BRIANNA DUE TO POLLEN 30033 EXTRINSIC 01-01-2014 SWAPNA ASTHMA, BRIANNA UNSPECIFIED 3384 CHRONIC 12-29-2013 FREDI CLEMENS PAIN SYNDROME 55610 OSTEOARTHRO 12-29-2013 FREDI CLEMENS S INVLV MX SITES BUT NOT SPEC GEN V7612 OTHER 11-15-2013 [facility] MAMMOGRAM 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 68834 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 4772 ALLERGIC 10-03-2013 SWAP[facility] RHINITIS BRIANNA DUE TO ANIMAL HAIR AND DANDER 91862 ASTHMA, 10-03-2013 [facility] UNSPECIFIED EQUIPMENT , INC UNSPECIFIED STATUS V727 DIAGNOSTIC 10-03-2013 SWAP[facility] SKIN AND BRIANNA SENSITIZATI ON TESTS 3674 PRESBYOPIA 09-29-2013 SCIFRES ANG 32584 ESOPHAGEAL 09-14-2013 FREDI CLEMENS REFLUX 17830 UNS 09-14-2013 FREDI CLEMENS GASTRITIS&G ASTRODUODIT IS [...] DEVICE TUBING A7037 PUMA PUMA USED WITH 5 HOME HOME POSITIVE MEDICAL MEDICAL AIRWAY EQUIPME EQUIPME PRESSURE DEVICE CHIROPRAC 43576 SELENE MORTON TIC 5 TIF TIF MANIPULAT TOR TX SPINAL 3-4 REGIONS CHIROPRAC 77734 SELENE MORTON TIC 5 TIF TIF MANIPLTV TX EXTRASPIN AL 1/> REGION CHIROPRAC 23745 SELENE M[place]ON TIC 5 TIF TIF MANIPLTV TX EXTRASPIN AL 1/> REGION CHIROPRAC 51205 SELENE M[place]ON TIC 5 TIF TIF MANIPULAT TOR TX SPINAL 3-4 REGIONS LEAD A4557 [facility] EMPI INC WIRES PER 5 PAIR ELECTRICA A4595 [facility] EMPI INC L 5 STIMULATO R SUPPLIES 2 LEAD PER MONTH FILTER A7038 PUMA DORADORELL DISPBL 5 HOME HOME USED MEDICAL MEDICAL W/POS EQUIPME EQUIPME ARWAY PRESSURE DEVICE FILTER A7039 PUMA PUMA NON 5 HOME HOME DISPBL MEDICAL MEDICAL USED EQUIPME EQUIPME W/POS ARWAY PRESS DEVICE POLYSOM [address] ASIM 6/>YRS 5 EAST EAST SLEEP W/CPAP 4/> ADDL BEE ATTND LUMB L0627 PUMA DORADORELL ORTHOSIS 5 HOME HOME SAGIT MEDICAL MEDICAL CNTRL EQUIPME EQUIPME RIGID A&P PANEL PREFAB TENS E0730 [employer] EMPI INC DEVICE 5 4/MORE LEADS MULTI NERVE STIMULATI ON CHIROPRAC 94771 SELENE M[place]ON TIC 5 TIF TIF MANIPULAT TOR TX SPINAL 3-4 REGIONS CHIROPRAC 97035 SELENE M[place]ON TIC 5 TIF TIF MANIPLTV TX EXTRASPIN AL 1/> REGION FACE MASK A7031 PUMA PUMA 4 HOME HOME INTERFACE MEDICAL MEDICAL REPLCMT EQUIPME EQUIPME FULL FACE MASK EA FILTER A7038 PUMA PUMA DISPBL 4 HOME HOME USED MEDICAL MEDICAL W/POS EQUIPME EQUIPME ARWAY PRESSURE DEVICE TUBING A7037 PUMA BARTHOLOMEW USED WITH 4 HOME HOME POSITIVE MEDICAL MEDICAL AIRWAY EQUIPME EQUIPME PRESSURE DEVICE CHIROPRAC 47460 SELENE [place]ON TIC 4 TIF TIF MANIPULAT TOR TX SPINAL 3-4 REGIONS CHIROPRAC 49469 SELENE [place]ON TIC 4 TIF TIF MANIPLTV TX EXTRASPIN AL 1/> REGION TENS E0730 [employer] EMPI INC DEVICE 4 4/MORE LEADS MULTI NERVE STIMULATI ON THERAPEUT 48569 ANATOLIY COPE IC PX 1/> 4 [facility] AREAS INC INC EACH 15 MIN EXERCISES FILTER A7038 PUMA PUMA DISPBL 4 HOME HOME USED MEDICAL MEDICAL W/POS EQUIPME EQUIPME ARWAY PRESSURE DEVICE FULL FACE A7030 PUMA DORADORELL MASK 4 HOME HOME USED MEDICAL MEDICAL W/POS EQUIPME EQUIPME ARWAY PRESS DEVICE EA HEADGEAR A7035 PUMA DORADORELL USED 4 HOME HOME W/POSITIV MEDICAL MEDICAL E AIRWAY EQUIPME EQUIPME PRESSURE DEVICE APPL 57160 [facility] COPE MODALITY 4 [facility]OS[facility] 1/> AREAS INC INC ELEC STIMJ EA 15 MIN THERAPEUT 63942 ANATOLIY COPE IC PX 1/> 4 [facility] AREAS INC INC EACH 15 MIN EXERCISES CHIROPRAC 72998 SELENE M[place]ON TIC 4 TIF TIF MANIPLTV TX EXTRASPIN AL 1/> REGION CHIROPRAC 25324 SELENE M[place]ON TIC 4 TIF TIF MANIPULAT TOR TX SPINAL 3-4 REGIONS THERAPEUT 27140 ANATOLIY ANATOLIY IC PX 1/> 4 [facility]OS[facility] AREAS INC INC EACH 15 MIN EXERCISES THERAPEUT 36601 ANATOLIY ANATOLIY IC PX 1/> 4 [facility]OS[facility] AREAS INC INC EACH 15 MIN EXERCISES CHIROPRAC 09338 SELENE OMRTON TIC 4 TIF TIF MANIPLTV TX EXTRASPIN AL 1/> REGION CHIROPRAC 02176 SELENE M[place]ON TIC 4 TIF TIF MANIPULAT TOR TX SPINAL 3-4 REGIONS CHIROPRAC 35817 SELENE MORTON TIC 4 TIF TIF MANIPULAT TOR TX SPINAL 3-4 REGIONS CHIROPRAC 15470 SELENE M[place]ON TIC 4 TIF TIF MANIPLTV TX EXTRASPIN AL 1/> REGION APPL 20433 SELENE M[place]ON MODALITY 4 TIF TIF 1/> AREAS ELEC STIMJ UNATTENDE D APPL 06193 SELENE M[place]ON MODALITY 4 TIF TIF 1/> AREAS ELEC STIMJ UNATTENDE D CHIROPRAC 44334 SELENE MORTON TIC 4 TIF TIF MANIPLTV TX EXTRASPIN AL 1/> REGION CHIROPRAC 37287 SELENE MORTON TIC 4 TIF TIF MANIPULAT TOR TX SPINAL 3-4 REGIONS CHIROPRAC 54355 SELENE M[place]ON TIC 4 TIF TIF MANIPULAT TOR TX SPINAL 3-4 REGIONS CHIROPRAC 99974 SELENE MORTON TIC 4 TIF TIF MANIPLTV TX EXTRASPIN AL 1/> REGION APPL 14619 SELENE M[place]ON MODALITY 4 TIF TIF 1/> AREAS ELEC STIMJ UNATTENDE D APPL 74502 SELENE MORTON MODALITY 4 TIF TIF 1/> AREAS ELEC STIMJ UNATTENDE D CHIROPRAC 14832 SELENE MORTON TIC 4 TIF TIF MANIPLTV TX EXTRASPIN AL 1/> REGION CHIROPRAC 41958 SELENE MORTON TIC 4 TIF TIF MANIPULAT TOR TX SPINAL 3-4 REGIONS RINGERS J7120 JESSICA FARMER LACTATE 4 E. FARMER CRISTY INFUSION [facility]PLC UP TO 1000 CC RINGERS J7120 JESSICA FARMER LACTATE 4 E. FARMER CRISTY INFUSION MDPLC UP TO 1000 CC LIPID 71783 [facility] COPE PANEL 4 [facility] INC INC HEPATIC 82396 ANATOLIY COPE FUNCTION 4 [facility] PANEL INC INC PROF SVCS 29083 SWAPNA SWAPNA ALLG 4 BRIANNA BRIANNA IMMNTX X W/PRV ALLGIC XTRCS NJXS HUMDIFIR E0562 PUMA DORADORELL HEATED 4 HOME HOME USED MEDICAL MEDICAL W/POS EQUIPME EQUIPME ARWAY PRESSURE DEVICE ANES 71255 BURBERRY BURBERRY LOWER 4 JEOVANNY JEOVANNY INTESTINE ENDOSCOPY DISTAL DUODENUM PRESSURIZ 94447 [facility] ED/[address] SSURIZED INHALATIO N TREATMENT COLONOSCO 80148 JAKE BRIANNA JAKE BRIANNA PY FLX DX 4 W/COLLJ SPEC WHEN PFRMD COLOREC G[address] SCR; COLNSCPY NOT MEET HI RISK INJECTION J2001 [address] LIDOCAINE HCL INTRAVENO US INFUS 10 MG THERAPEUT 95866 ANATOLIY COPE IC PX 1/> 4 [facility] AREAS INC INC EACH 15 MIN EXERCISES APPLICATI 98925 ANATOLIY COPE ON 4 [facility] MODALITY INC INC 1/> AREAS HOT/COLD PACKS APPL 29274 ANATOLIY COPE MODALITY 4 [facility] 1/> AREAS INC INC ULTRASOUN D EA 15 MIN APPL 38929 ANATOLIY COPE MODALITY 4 [facility] 1/> AREAS INC INC ELEC STIMJ UNATTENDE D PHYSICAL 83141 ANATOLIY HENDERSON THERAPY 4 MEM HOSP ELISHA EVALUATIO INC N PREPJ& 68434 SWAPNA SWAPNA ALLERGEN 4 BRIANNA BRIANNA IMMUNOTHE RAPY 1/SAW BOSS ANTIGEN FILTER A7038 PUMA PUMA DISPBL 4 HOME HOME USED MEDICAL MEDICAL W/POS EQUIPME EQUIPME ARWAY PRESSURE DEVICE FULL FACE A7030 PUMA PUMA MASK 4 HOME HOME USED MEDICAL MEDICAL W/POS EQUIPME EQUIPME ARWAY PRESS DEVICE EA FILTER A7039 PUMA PUMA NON 4 HOME HOME DISPBL MEDICAL MEDICAL USED EQUIPME EQUIPME W/POS ARWAY PRESS DEVICE HEADGEAR A7035 PUMA PUMA USED 4 HOME HOME W/POSITIV MEDICAL MEDICAL E AIRWAY EQUIPME EQUIPME PRESSURE DEVICE TUBING A7037 PUMA PUMA USED WITH 4 HOME HOME POSITIVE MEDICAL MEDICAL AIRWAY EQUIPME EQUIPME PRESSURE DEVICE RADIOLOGI 11496 DANIEL SANCHEZ C EXAM 4 JACKSON JACKSON KNEE COMPLETE 4/MORE VIEWS SPMTRY 89362 SWAPNA SWAPNA W/VC 4 BRIANNA BRIANNA EXPIRATOR Y CELESTE W/WO MXML VOL VNTJ CHIROPRAC 68987 VIDYA COTTERON TIC 4 COL COL MANIPULAT TOR TX SPINAL 3-4 REGIONS MANUAL 97007 VIDYA VIDYA THERAPY 4 COL COL TQS 1/> REGIONS EACH 15 MINUTES MANUAL 92609 VIDYA VIDYA THERAPY 4 COL COL TQS 1/> REGIONS EACH 15 MINUTES CHIROPRAC 97671 VIDYA HOPKINSESON TIC 4 COL COL MANIPULAT TOR TX SPINAL 3-4 REGIONS APPL 78448 VIDYA HOPKINSESON MODALITY 4 COL COL 1/> AREAS TRACTION MECHANICA L APPL 40885 VIDYA HOPKINSESON MODALITY 4 COL COL 1/> AREAS ELEC STIMJ UNATTENDE D SCREENING G[address] MAMMOGRAP HY RICHY INCL CAD WHEN PERFORMD 30202 [facility] AIDED [address] [place] [address] DETECTION SCREENING MAMMOGRAP HY APPL 41084 VIDYA COTTERON MODALITY 4 COL COL 1/> AREAS ELEC STIMJ UNATTENDE D APPL 47443 VIDYA COTTERON MODALITY 4 COL COL 1/> AREAS TRACTION MECHANICA L CHIROPRAC 91840 VIDYA COTTERON TIC 4 COL COL MANIPULAT TOR TX SPINAL 3-4 REGIONS MANUAL 08817 VIDYA HOPKINSESON THERAPY 4 COL COL TQS 1/> REGIONS EACH 15 MINUTES MANUAL 65353 VIDYA COTTERON THERAPY 4 COL COL TQS 1/> REGIONS EACH 15 MINUTES CHIROPRAC 30466 VIDYA COTTERON TIC 4 COL COL MANIPULAT TOR TX SPINAL 3-4 REGIONS APPL 25259 VIDYA COTTERON MODALITY 4 COL COL 1/> AREAS TRACTION MECHANICA L APPL 98674 VIDYA COTTERON MODALITY 4 COL COL 1/> AREAS ELEC STIMJ UNATTENDE D APPL 95631 VIDYA COTTERON MODALITY 4 COL COL 1/> AREAS ELEC STIMJ UNATTENDE D APPL 55479 VIDYA HOPKINSESON MODALITY 4 COL COL 1/> AREAS TRACTION MECHANICA L CHIROPRAC 49994 VIDYA COTTERON TIC 4 COL COL MANIPULAT TOR TX SPINAL 3-4 REGIONS DRUG SCR G0434 ROC[facility] HAM ROC[facility]AM NOT 4 CHROMATOG RAPHIC; ANY NUMBER PT ENC MANUAL 78497 VIDYA HOPKINSESON THERAPY 4 COL COL TQS 1/> REGIONS EACH 15 MINUTES SPACR A4627 MT MED MT MED BAG/RESRV 4 EQUIPMENT EQUIPMENT OR W/WO INC INC MASK W/METRD DOSE INHAL DEMO&/HYUN 36345 SWAPNA SWAPNA L OF PT 4 BRIANNA BRIANNA UTILIZ AERSL GEN/NEB/I NHLR/IP BRNCDILAT 03992 SWAPNA SWAPNA RSPSE 4 BRIANNA BRIANNA SPMTRY PRE&POST- BRNCDILAT ADMN PERCUTANE 83129 SWAPNA SWAPNA OUS TESTS 4 BRIANNA BRIANNA W/ALLERGE ANCA EXTRACTS INTRACUTA 61378 SWAPNA SWAPNA NEOUS 4 BRIANNA BRIANNA TESTS W/ALLERGE ANCA EXTRACTS PRESSURIZ 14999 SWAPNA SWAPNA ED/NONPRE 4 BRIANNA BRIANNA SSURIZED INHALATIO N TREATMENT TUBING A7037 SWAPNA SWAPNA USED WITH 4 BRIANNA BRIANNA POSITIVE AIRWAY PRESSURE DEVICE DETERMINA 19169 SCIFRES SCIFRES TION 4 ANG ANG REFRACTIV E STATE OPHTH 73267 SCIFRES SCIFRES MEDICAL 4 ANG ANG XM&EVAL COMPRE NEW PT 1/> VST MANUAL 75518 VIDYA DASILVA THERAPY 4 COL COL TQS 1/> REGIONS EACH 15 MINUTES APPLICATI 18631 VIDYA DASILVA ON 4 COL COL MODALITY 1/> AREAS HOT/COLD PACKS DRUG SCR G0434 [facility] NOT 4 CHROMATOG RAPHIC; ANY NUMBER PT ENC CHIROPRAC 42221 VIDYA DASILVA TIC 4 COL COL MANIPULAT TOR TX SPINAL 3-4 REGIONS APPL 32014 VIDYA DASILVA MODALITY 4 COL COL 1/> AREAS ELEC STIMJ UNATTENDE D APPL 31890 VIDYA DASILVA MODALITY 4 COL COL 1/> AREAS TRACTION MECHANICA L FILTER A7038 PUMA BARTHOLOMEW DISPBL 4 HOME HOME USED MEDICAL MEDICAL W/POS EQUIPME EQUIPME ARWAY PRESSURE DEVICE NASL A7034 PUMA DORADORELL INTRFCE 4 HOME HOME POS ARWAY MEDICAL MEDICAL PRSS EQUIPME EQUIPME DEVC W/WO HEAD STRAP HEADGEAR A7035 PUMA BARTHOLOMEW USED 4 HOME HOME W/POSITIV MEDICAL MEDICAL E AIRWAY EQUIPME EQUIPME PRESSURE DEVICE FILTER A7039 PUMA BARTHOLOMEW NON 4 HOME HOME DISPBL MEDICAL MEDICAL USED EQUIPME EQUIPME W/POS ARWAY PRESS DEVICE TUBING A7037 PUMA BARTHOLOMEW USED WITH 4 HOME HOME POSITIVE MEDICAL MEDICAL AIRWAY EQUIPME EQUIPME PRESSURE DEVICE Encounters Encounter Start End Date Code Location Performer Type Date OFFICE 25344 [facility] [facility] OUTPATIEN 5 5 T[facility] T VISIT 10 MINUTES OFFICE 61726 DILSHADRip ZO ALLEN OUTPATIEN 5 5 [facility] SLEEP JUSTIN T VISIT AND REHA 15 MINUTES [facility]OSPITAL [facility] - 5 5 [facility] - 4 5 [facility] - 4 4 [facility] OFFICE 29893 [facility] 4 4 NAZANIN T VISIT CARDIOLOG 15 Y AT CENT MINUTES OFFICE 68514 [facility]ELENE OUTPATIEN 4 4 TIF TIF T NEW 30 MINUTES [facility] - 4 4 [facility] 4 [facility] 56342 [facility] OUTPATI[facility] 4 4 NAZANIN T VISIT CARDIOLOG 15 Y AT CENT MINUTES HOSPITAL [facility] - 4 4 [facility] OUTPATIEN [facility] OFFICE 32184 DANIEL SANCHEZ CONSULTAT 4 4 JACKSON RODRIGUEZ NEW/ESTAB PATIENT 60 MIN OFFICE 89626 SWAPNA SWAPNA OUTPATIEN 4 4 BRIANNA BRIANNA T VISIT 25 MINUTES OFFICE 30536 FREDI RAI OUTPATIEN 4 4 SARATH SARATH T VISIT 15 MINUTES OFFICE 02405 ROC[facility] JERAMIE [facility] OUTPATIEN 4 4 T VISIT 15 MINUTES OFFICE 69361 VIDYA DASILVA OUTPATIEN 4 4 COL COL T VISIT 10 MINUTES OFFICE 25671 [facility] JERAMIE [facility] OUTPATIEN 4 4 T VISIT 15 MINUTES OFFICE 39562 [facility] OUTPATIEN 4 4 T VISIT 15 MINUTES [facility] - 4 4 [facility] OUTPATIEN T OFFICE 30272 [facility] OUTPATIEN 4 4 T VISIT 15 MINUTES OFFICE 91088 MARTÍNEZ SOLIZ OUTPATIEN 4 4 NAZANIN NAZANIN T NEW 30 MINUTES OFFICE 38907 [facility] OUTPATIEN 4 4 T VISIT 15 MINUTES OFFICE 54851 [facility] OUTPATIEN 4 4 T VISIT 15 MINUTES OFFICE 65703 SWAPNA SWAPNA CONSULTAT 4 4 BRIANNA BRIANNA ION NEW/ESTAB PATIENT 80 MIN OFFICE 63259 [facility] OUTPATIEN 4 4 T NEW 45 MINUTES OFFICE 90070 VIDYA VIDYA OUTPATIEN 4 4 COL COL T NEW 20 MINUTES OFFICE 45848 FREDI RAI OUTPATIEN 4 4 SARATH SARATH T VISIT 15 MINUTES OFFICE 94121 FREDI RAI OUTPATIEN 4 4 SARATH SARATH T VISIT 15 MINUTES
--- OUTSIDE RECORDS SUMMARY | 2017-01-09 22:23 | External Medical Summary Rpt ---
Demographics Preferred Language Mohawk Marital Status Unknown Mormon Affiliation Unknown Race Unknown Ethnic Group Unknown Author Author , Organization [employer] Address Unknown Phone Unavailable Purpose Continuity of Care Document - through 2016 Immunization No patient found.
--- OUTSIDE RECORDS SUMMARY | 2017-01-09 22:23 | External Medical Summary Rpt ---
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 Name Role Phone FREDI CHAUDHARY Unavailable Unavailable [...] 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 AT [facility], [facility] AT [facility] ROCIO HAM, ROCIO HAM Unavailable Unavailable [...] Unavailable Unavailable EQUIPME, [facility], Unavailable Unavailable [facility] Unavailable Unavailable [facility] JAKE BRIANNA, JAKE BRIANNA Unavailable Unavailable JAKE BRIANNA, JAKE BRIANNA Unavailable Unavailable DANIEL PAZ, DANIEL Unavailable Unavailable JACKSON PAZ, DANIEL Unavailable Unavailable JACKSON Purpose Continuity of Care Document - 09-07-2013 through 2016 Problems Code Diagnosis DOS Provider Status 79323 SPINAL 12-27-2014 [facility] STENOSIS UNSPEC REGION OTH THAN CERVICAL 7245 UNSPECIFIED 12-27-2014 [facility] BACKACHE 00567 OBSTRUCTIVE 11-26-2014 [facility] SLEEP HOME [facility] 7231 CERVICALGIA [...] LUMBAR 11-15-2014 SELENE DEVINE SPRAIN AND STRAIN 38225 DEGEN 10-10-2014 [facility]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 7244 THORACIC/RAMANA 10-10-2014 [facility] MBOSACRAL H SLEEP AND NEURITIS/RA REHA DICULITIS UNSPEC 61997 PAIN IN 07-30-2014 [facility] JOINT, [facility] LOWER LEG INC V571 OTHER 07-30-2014 [facility] PHYSICAL [facility] THERAPY INC 4019 UNSPECIFIED 06-01-2014 [facility] HYPERTENSIO AT CENT N 4148 OTHER SPEC 06-01-2014 [facility] FORMS [facility] CHRONIC AT CENT ISCHEMIC HEART DISEASE 7213 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 JESSICA FARMER SPONDYLOSIS MDPLC WITHOUT MYELOPATHY 2724 OTHER AND 01-27-2014 [facility] UNSPECIFIED [facility] INC HYPERLIPIDE GIBRAN V5869 LONG-TERM 01-27-2014 [facility] (CURRENT) [facility] USE OF INC OTHER MEDICATIONS 4778 ALLERGIC 01-25-2014 [facility] RHINITIS BRIANNA DUE TO OTHER ALLERGEN 06333 CORONARY 01-19-2014 [facility] OSIS [place] CORONARY ARTERY 5368 DYSPEPSIA&O 01-19-2014 [facility] THER SPEC HOSPITAL DISORDERS FUNCTION STOMACH 83135 UNSPECIFIED 01-19-2014 [facility] ARTHROPATHY SITE UNSPECIFIED 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 UNSPEC V7651 SPECIAL 01-19-2014 JAKE BRIANNA SCREENING FOR MALIGNANT NEOPLASMS COLON 4011 ESSENTIAL 01-15-2014 [facility] HYPERTENSIO CARDIOLOGY N, BENIGN AT CENT 93476 PES 01-02-2014 DANIEL JACKSON ANSERINUS TENDINITIS OR BURSITIS 52184 OTHER 01-01-2014 [facility] CHRONIC BRIANNA ALLERGIC CONJUNCTIVI TIS 4770 ALLERGIC 01-01-2014 [facility] RHINITIS BRIANNA DUE TO POLLEN 15679 EXTRINSIC 01-01-2014 [facility] ASTHMA, BRIANNA UNSPECIFIED 3384 CHRONIC 12-29-2013 FREDI CLEMENS PAIN SYNDROME 95120 OSTEOARTHRO 12-29-2013 FREDI CLEMENS S INVLV MX SITES BUT NOT SPEC GEN V7612 OTHER 11-15-2013 [facility] MAMMOGRAM 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 24733 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 4772 ALLERGIC 10-03-2013 [facility] RHINITIS BRIANNA DUE TO ANIMAL HAIR AND DANDER 41601 ASTHMA, 10-03-2013 [facility] UNSPECIFIED EQUIPMENT , INC UNSPECIFIED STATUS V727 DIAGNOSTIC 10-03-2013 [facility] SKIN AND BRIANNA SENSITIZATI ON TESTS 3674 PRESBYOPIA 09-29-2013 SCIFRES ANG 87034 ESOPHAGEAL 09-14-2013 FREDI CLEMENS REFLUX 77715 UNS 09-14-2013 FREDI CLEMENS GASTRITIS&G ASTRODUODIT IS [...] MEDICAL AIRWAY EQUIPME EQUIPME PRESSURE DEVICE CHIROPRAC 66252 SELENE [place] TIC 5 TIF TIF MANIPULAT TOR TX SPINAL 3-4 REGIONS CHIROPRAC 56154 SELENE [place] TIC 5 TIF TIF MANIPLTV TX EXTRASPIN AL 1/> REGION CHIROPRAC 80280 SELENE [place] TIC 5 TIF TIF MANIPLTV TX EXTRASPIN AL 1/> REGION CHIROPRAC 06306 SELENE [place] TIC 5 TIF TIF MANIPULAT [...] EQUIPME EQUIPME W/POS ARWAY PRESS DEVICE POLYSOM [address] ASIM 6/>YRS 5 EAST EAST SLEEP W/CPAP 4/> ADDL BEE ATTND LUMB L0627 [facility] DORADORELL ORTHOSIS 5 HOME HOME [facility] CNTRL EQUIPME EQUIPME RIGID A&P PANEL PREFAB TENS E0730 NeedlI INC EMPI INC DEVICE 5 4/MORE LEADS MULTI NERVE STIMULATI ON CHIROPRAC 71093 SELENE [place] TIC 5 TIF TIF MANIPULAT TOR TX SPINAL 3-4 REGIONS CHIROPRAC 94124 SELENE [place] TIC 5 TIF TIF MANIPLTV [...] MEDICAL AIRWAY EQUIPME EQUIPME PRESSURE DEVICE CHIROPRAC 38610 SELENE [place] TIC 4 TIF TIF MANIPULAT TOR TX SPINAL 3-4 REGIONS CHIROPRAC 87218 SELENE [place] TIC 4 TIF TIF MANIPLTV TX EXTRASPIN AL 1/> REGION TENS E0730 NeedlI INC EMPI INC DEVICE 4 4/MORE LEADS MULTI NERVE STIMULATI ON THERAPEUT 99994 ANATOLIY COPE IC PX 1/> 4 MEM [...] E AIRWAY EQUIPME EQUIPME PRESSURE DEVICE APPL 28706 AN[facility] COPE MODALITY 4 [facility] 1/> AREAS INC INC ELEC STIMJ EA 15 MIN THERAPEUT 98270 ANATOLIY COPE IC PX 1/> 4 [facility] AREAS INC INC EACH 15 MIN EXERCISES CHIROPRAC 82221 SELENE M[place]ON TIC 4 TIF TIF MANIPLTV TX EXTRASPIN AL 1/> REGION CHIROPRAC 80179 SELENE M[place] TIC 4 TIF TIF MANIPULAT TOR TX SPINAL 3-4 REGIONS THERAPEUT 62016 ANATOLIY ANATOLIY IC PX 1/> 4 [facility] AREAS INC INC EACH 15 MIN EXERCISES THERAPEUT 52283 ANATOLIY ANATOLIY IC PX 1/> 4 [facility]OS[facility] AREAS INC INC EACH 15 MIN EXERCISES CHIROPRAC 88283 SELENE M[place] TIC 4 TIF TIF MANIPLTV TX EXTRASPIN AL 1/> REGION CHIROPRAC 07691 SELENE MORTON TIC 4 TIF TIF MANIPULAT TOR TX SPINAL 3-4 REGIONS CHIROPRAC 38669 SELENE M[place]ON TIC 4 TIF TIF MANIPULAT TOR TX SPINAL 3-4 REGIONS CHIROPRAC 80395 SELENE M[place]ON TIC 4 TIF TIF MANIPLTV TX EXTRASPIN AL 1/> REGION APPL 15983 SELENE M[facility]ON MODALITY 4 TIF TIF 1/> AREAS ELEC STIMJ UNATTENDE D APPL 32443 SELENE M[place]ON MODALITY 4 TIF TIF 1/> AREAS ELEC STIMJ UNATTENDE D CHIROPRAC 15617 SELENE M[place] TIC 4 TIF TIF MANIPLTV TX EXTRASPIN AL 1/> REGION CHIROPRAC 94152 SELENE MORTON TIC 4 TIF TIF MANIPULAT TOR TX SPINAL 3-4 REGIONS CHIROPRAC 43571 SELENE MORTON TIC 4 TIF TIF MANIPULAT TOR TX SPINAL 3-4 REGIONS CHIROPRAC 76328 SELENE MORTON TIC 4 TIF TIF MANIPLTV TX EXTRASPIN AL 1/> REGION APPL 94911 SELENE M[place]ON MODALITY 4 TIF TIF 1/> AREAS ELEC STIMJ UNATTENDE D APPL 38870 SELENE MORTON MODALITY 4 TIF TIF 1/> AREAS ELEC STIMJ UNATTENDE D CHIROPRAC 64791 SELENE MORTON TIC 4 TIF TIF MANIPLTV TX EXTRASPIN AL 1/> REGION CHIROPRAC 04474 SELENE MORTON TIC 4 TIF TIF MANIPULAT TOR TX SPINAL 3-4 REGIONS RINGERS J7120 JESSICA FARMER LACTATE 4 E. FARMER CRISTY INFUSION MDPLC UP TO 1000 CC RINGERS J7120 JESSICA FARMER LACTATE 4 E. FARMER CRISTY INFUSION MDPLC UP TO 1000 CC LIPID 67057 [facility] COPE PANEL 4 [facility] INC INC HEPATIC 27302 ANATOLIY COPE FUNCTION 4 [facility] PANEL INC INC PROF SVCS 98930 SWAPNA SWAPNA ALLG 4 BRIANNA BRIANNA IMMNTX X W/PRV ALLGIC XTRCS NJXS HUMDIFIR E0562 [facility] DORADORELL HEATED 4 HOME HOME USED MEDICAL MEDICAL W/POS EQUIPME EQUIPME ARWAY PRESSURE DEVICE ANES 82900 BURBERRY BURBERRY LOWER 4 JEOVANNY JEOVANNY INTESTINE ENDOSCOPY DISTAL DUODENUM PRESSURIZ 73885 [facility] ED/[address] SSURIZED INHALATIO N TREATMENT COLONOSCO 67528 JAKE BRIANNA JAKE BRIANNA PY FLX DX 4 W/COLLJ SPEC WHEN PFRMD COLOREC G[address] SCR; COLNSCPY NOT MEET HI RISK INJECTION J2001 [address] LIDOCAINE HCL INTRAVENO US INFUS 10 MG THERAPEUT 65859 ANATOLIY COPE IC PX 1/> 4 [facility] AREAS INC INC EACH 15 MIN EXERCISES APPLICATI 20039 ANATOLIY COPE ON 4 [facility] MODALITY INC INC 1/> AREAS HOT/COLD PACKS APPL 19145 ANATOLIY COPE MODALITY 4 [facility] 1/> AREAS INC INC ULTRASOUN D EA 15 MIN APPL 54218 ANATOLIY COPE MODALITY 4 [facility] 1/> AREAS INC INC ELEC STIMJ UNATTENDE D PHYSICAL 26918 ANATOLIY HENDERSON THERAPY 4 [facility] ELISHA EVALUATIO INC N PREPJ& 45053 SWAPNA SWAPNA ALLERGEN 4 BRIANNA BRIANNA IMMUNOTHE RAPY 1/GUNNER'S MATE M ANTIGEN FILTER A7038 PUMA PUMA DISPBL 4 [...] MEDICAL AIRWAY EQUIPME EQUIPME PRESSURE DEVICE RADIOLOGI 71251 DANIEL SANCHEZ C EXAM 4 JACKSON JACKSON KNEE COMPLETE 4/MORE VIEWS SPMTRY 61560 SWAPNA SWAPNA W/VC 4 BRIANNA BRIANNA EXPIRATOR Y CELESTE W/WO MXML VOL VNTJ CHIROPRAC 04731 VIDYA COTTERON TIC 4 COL COL MANIPULAT TOR TX SPINAL 3-4 REGIONS MANUAL 79390 VIDYA VIDYA THERAPY 4 COL COL TQS 1/> REGIONS EACH 15 MINUTES MANUAL 13975 VIDYA VIDYA THERAPY 4 COL COL TQS 1/> REGIONS EACH 15 MINUTES CHIROPRAC 25545 VIDYA HOPKINSESON TIC 4 COL COL MANIPULAT TOR TX SPINAL 3-4 REGIONS APPL 46300 VIDYA HOPKINSESON MODALITY 4 COL COL 1/> AREAS TRACTION MECHANICA L APPL 44293 VIDYA HOPKINSESON MODALITY 4 COL COL 1/> AREAS ELEC STIMJ UNATTENDE D SCREENING G[address] MAMMOGRAP HY RICHY INCL CAD WHEN PERFORMD 27421 [facility] AIDED [address] [place] [address] DETECTION SCREENING MAMMOGRAP HY APPL 76505 VIDYA COTTERON MODALITY 4 COL COL 1/> AREAS ELEC STIMJ UNATTENDE D APPL 04239 VIDYA COTTERON MODALITY 4 COL COL 1/> AREAS TRACTION MECHANICA L CHIROPRAC 91616 VIDYA COTTERON TIC 4 COL COL MANIPULAT TOR TX SPINAL 3-4 REGIONS MANUAL 84018 VIDYA HOPKINSESON THERAPY 4 COL COL TQS 1/> REGIONS EACH 15 MINUTES MANUAL 28022 VIDYA COTTERON THERAPY 4 COL COL TQS 1/> REGIONS EACH 15 MINUTES CHIROPRAC 24601 VIDYA COTTERON TIC 4 COL COL MANIPULAT TOR TX SPINAL 3-4 REGIONS APPL 27025 VIDYA COTTERON MODALITY 4 COL COL 1/> AREAS TRACTION MECHANICA L APPL 83551 VIDYA COTTERON MODALITY 4 COL COL 1/> AREAS ELEC STIMJ UNATTENDE D APPL 09374 VIDYA COTTERON MODALITY 4 COL COL 1/> AREAS ELEC STIMJ UNATTENDE D APPL 37817 VIDYA HOPKINSESON MODALITY 4 COL COL 1/> AREAS TRACTION MECHANICA L CHIROPRAC 56533 VIDYA COTTERON TIC 4 COL COL MANIPULAT TOR TX SPINAL 3-4 REGIONS DRUG SCR G0434 ROC[facility] HAM ROCIO HAM NOT 4 CHROMATOG RAPHIC; ANY NUMBER PT ENC MANUAL 42310 VIDYA HOPKINSESON THERAPY 4 COL COL TQS 1/> REGIONS EACH 15 MINUTES SPACR A4627 MT MED MT MED BAG/RESRV 4 EQUIPMENT EQUIPMENT OR W/WO INC INC MASK W/METRD DOSE INHAL DEMO&/HYUN 30422 SWAPNA SWAPNA L OF PT 4 BRIANNA BRIANNA UTILIZ AERSL GEN/NEB/I NHLR/IP BRNCDILAT 53992 SWAPNA SWAPNA RSPSE 4 BRIANNA BRIANNA SPMTRY PRE&POST- BRNCDILAT ADMN PERCUTANE 62757 SWAPNA SWAPNA OUS TESTS 4 BRIANNA BRIANNA W/ALLERGE ANCA EXTRACTS INTRACUTA 37627 SWAPNA SWAPNA NEOUS 4 BRIANNA BRIANNA TESTS W/ALLERGE ANCA EXTRACTS PRESSURIZ 67688 SWAPNA SWAPNA ED/NONPRE 4 BRIANNA BRIANNA SSURIZED INHALATIO N TREATMENT TUBING A7037 SWAPNA SWAPNA USED WITH 4 BRIANNA BRIANNA POSITIVE AIRWAY PRESSURE DEVICE DETERMINA 70042 SCIFRES SCIFRES TION 4 ANG ANG REFRACTIV E STATE OPHTH 47601 SCIFRES SCIFRES MEDICAL 4 ANG ANG XM&EVAL COMPRE NEW PT 1/> VST MANUAL 04842 VIDYA DASILVA THERAPY 4 COL COL TQS 1/> REGIONS EACH 15 MINUTES APPLICATI 12845 VIDYA DASILVA ON 4 COL COL MODALITY 1/> AREAS HOT/COLD PACKS DRUG SCR G0434 ROCIO HAM ROCIO HAM NOT 4 CHROMATOG RAPHIC; ANY NUMBER PT ENC CHIROPRAC 43556 VIDYA DASILVA TIC 4 COL COL MANIPULAT TOR TX SPINAL 3-4 REGIONS APPL 20080 VIDYA DASILVA MODALITY 4 COL COL 1/> AREAS ELEC STIMJ UNATTENDE D APPL 80580 VIDYA DASILVA MODALITY 4 COL COL 1/> [...] Date Code Location Performer Type Date OFFICE 02729 [facility] OUTPATIEN 5 5 TIF [facility] T VISIT 10 MINUTES OFFICE 27688 DILSHADRip ZO ALLEN OUTPATIEN 5 5 [facility] SLEEP JUSTIN T VISIT AND REHA 15 MINUTES HOSPITAL [facility] - 5 5 [facility]OL[facility] - 4 5 [facility] - 4 4 [facility] OUTPATIEN [facility] OFFICE 61119 [facility] OUTPATIEN 4 4 NAZANIN T VISIT CARDIOLOG 15 Y AT CENT MINUTES OFFICE 66402 [facility] S[facility]ENE OUTPATIEN 4 4 TIF TIF T NEW 30 MINUTES HOSPITAL ANATOLIY - 4 4 [facility]IEN [facility] - [facility] 4 [facility] OUTPATIEN 4 4 NAZANIN T VISIT CARDIOLOG 15 Y AT CENT MINUTES HOSPITAL ANATOLIY - 4 4 [facility] OUTPATIEN [facility] OFFICE 42934 DANIEL SANCHEZ CONSULTAT 4 4 JACKSON RODRIGUEZ NEW/ESTAB PATIENT 60 MIN OFFICE 49434 SWAPNA SWAPNA OUTPATIEN 4 4 BRIANNA BRIANNA T VISIT 25 MINUTES OFFICE 55470 FREDI RAI OUTPATIEN 4 4 SARATH SARATH T VISIT 15 MINUTES OFFICE 00834 ROCIO JERAMIE [facility] OUTPATIEN 4 4 T VISIT 15 MINUTES OFFICE 26800 VIDYA DASILVA OUTPATIEN 4 4 COL COL T VISIT 10 MINUTES OFFICE 01191 ROCIO JERAMIE [facility] OUTPATIEN 4 4 T VISIT 15 MINUTES OFFICE 94651 [facility] OUTPATIEN 4 4 T VISIT 15 MINUTES [facility] - 4 4 EAST OUTPATIEN T OFFICE 70870 [facility] OUTPATIEN 4 4 T VISIT 15 MINUTES OFFICE 26970 [facility] SOLIZ OUTPATIEN 4 4 NAZANIN NAZANIN T NEW 30 MINUTES OFFICE 74893 [facility] OUTPATIEN 4 4 T VISIT 15 MINUTES OFFICE 29491 [facility] OUTPATIEN 4 4 T VISIT 15 MINUTES OFFICE 58290 SWAPNA SWAPNA CONSULTAT 4 4 BRIANNA BRIANNA ION NEW/ESTAB PATIENT 80 MIN OFFICE 52486 [facility] OUTPATIEN 4 4 T NEW 45 MINUTES OFFICE 77639 VIDYA VIDYA OUTPATIEN 4 4 COL COL T NEW 20 MINUTES OFFICE 55056 FREDI RAI OUTPATIEN 4 4 SARATH SARATH T VISIT 15 MINUTES OFFICE 93040 FREDI RAI OUTPATIEN 4 4 SARATH SARATH T VISIT 15 MINUTES
[2017-01-09] MEDS ORDERED: FEXOFENADINE60 MG PO (22:27)
[2017-01-09] MEDS ORDERED: SKELAXIN 800MG800 MG PO (22:29)
[2017-01-09] MEDS ORDERED: LAMICTAL 100 M100 MG PO (22:33)
[2017-01-09] MEDS ORDERED: EFFEXOR XR 75MG75 MG PO (22:33)
[2017-01-09] MEDS ORDERED: NUVIGIL200 MG PO (22:34)
[2017-01-09] MEDS ORDERED: ADDERALL 30 MG30 MG PO (22:35)
[2017-01-09] MEDS ORDERED: SINGULAIR10 MG PO (22:35)
[2017-01-09] MEDS ORDERED: BACTROBAN2% TP (23:27)
--- NOTE | 2017-01-09 23:27 | Emergency Room Report ---
History of Present Illness Time Seen by [id number] Presenting Problem in Triage Pt arrived:Walked Presenting Problem:S/P FALL AND FIT CONCRETE STEPS. 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 N Clinical Suspician of Infection? N Mental Status: 1 - Regular (Normal Baseline) Sepsis Risk:Possible Sepsis Risk Have you (or family members/close friends) recently traveled outside the [place]? N If Yes, where/when: Have you had exposure to infectious disease within the past month? N TB? Other? Specify: Source patient, RN notes reviewed, old records Exam Limitations no limitations Comment trip type fall at home with injury to lt ear - no loc and no neck pain Cardiac Chest Pain Chest pain indicative of cardiac No Timing/Duration this evening Severity moderate ALLERGIES Coded Allergies: Adhesives (01/09/17) Sulfa (Sulfonamide Antibiotics) (01/09/17) moxifloxacin (From AVELOX) (01/09/17) penicillin G (01/09/17) Uncoded Allergies: CODIENE (01/09/17) Home Medications Reported Medications AMLODIPINE BESYLATE/BENAZEPRIL (Lotrel 5-20 MG Capsule) 1 CAP PO DAILY GABAPENTIN (Gabapentin) 400 MG PO QHS Aspirin 81 MG PO DAILY Atenolol (Atenolol) 12.5 MG PO DAILY Atorvastatin Calcium (Lipitor 20MG) 40 MG PO DAILY ALPRAZOLAM (Alprazolam 0.25MG) 0.25 MG PO PRN PRN ANXIETY Diclofenac Sodium (Voltaren 75mg (GEQ)) 75 MG PO DAILY Sucralfate (Carafate Tab) 1 GM PO ACHS FEXOFENADINE HCL (Fexofenadine HCl) 60 MG PO DAILY Metaxalone (Skelaxin 800MG Tab) 800 MG PO DAILY Venlafaxine Hydrochloride (Effexor XR 75MG) 75 MG PO DAILY Lamotrigine (Lamictal 100Mg) 100 MG PO BID Armodafinil (Nuvigil) 200 MG PO DAILY Montelukast Sodium (Singulair) 10 MG PO QHS Dextroamphetamine/Amphetamine (Adderall 30 MG Tablet) 30 MG PO BID History Medical History General CAD? Yes Angina: Yes [place]: No Hypertension? Yes Hyperlipidemia? Yes CHF? No DVT? No PE? No COPD? No Asthma? Yes Anemia? No GERD? No Gastric ulcers? No GI Bleed? No Hernia? No Thyroid Problems? No Hypothyroidism? No CVA? No Seizures? No Diabetes? Yes Insulin Dependent: No Insulin Pump: No Home FSBS? No Renal Insuffiency? No End Stage Renal Disease? No UTI? No Stones? No BPH? No GB Disease: No Nephritic Syndrome? No Asplenia? No Hepatitis? No Sickle Cell Disease? No Arthritis? No Migraines? No Cataracts? Yes Glaucoma? No MRSA? No HIV? No TB? No Anxiety? No Depression? No Cancer? No Immunization Hx DT/Tetanus Unknown Surgical Hx Previous Surgery?Y TONSILS BIRTHMARK REMOVED BREAST BIOPSY CARDIAC STENT 1999 Social History Smoking Hx Smoker: Current Every Day Smoker Tobacco: Yes Type Cigarettes Packs/day 1 1/2 - 2 Packs Alcohol Alcohol: No Drugs none Review of Systems All Other Systems Reviewed and Negative Constitutional denies fever Eyes denies drainage ENT denies: ear discharge, epistaxis, throat pain. Respiratory denies cough, denies shortness of breath, denies wheezing Cardiovascular denies chest pain, denies syncope Gastrointestinal denies abdominal pain, denies diarrhea, denies vomiting Genitourinary denies: dysuria, frequency, hesitancy, hematuria. Musculoskeletal denies back pain, denies joint pain, denies joint swelling, denies neck pain Skin see HPI, denies rash, other Psychiatric/Neurological denies headache, denies seizure Physical Exam Vital Signs Vital Signs Date Time Temp Pulse Resp B/P Pulse O2 O2 Flow FiO2 Ox Delivery Rate 01/09 2325 99.8 76 18 151/85 96 01/09 2215 99.8 94 20 96 - WBC >12,000 or <4,000 or 10% bands? 2 or more SIRS Criteria Met? B/P: MAP:107 Creatinine >2.0? UA output<0.5ml/kg/hr for 2 hrs? Platelet count >100,000? Lactate >2.0mmol/1? INR >1.2 or PTT > than 60 sec? Evidence of Organ Dysfunction? Provider documented clinical suspician of infection? N Sepsis Criteria Count: 2 Sepsis Risk: Possible Sepsis Risk General Appearance no apparent distress Eye Exam - bilateral eye PERRL, bilateral eye EOMI Ear, Nose, Throat lt tm ok, 1 cm lt ear lac Neck non-tender, limited range of motion Respiratory Status No: respiratory distress. 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 No Results/Orders Current Medication Orders Sig/Keith Start time Last Medication Dose Route Stop Time Status Admin Lidocaine HCl 0 .STK-MED ONE 01/09 2300 DC .ROUTE Procedures Laceration/Wound Repair Laceration/Wound Repair Risks/benefits discussed with pt/guardian? Yes Tetanus status not up to date Wound Location ear Wound Length (cm) 1 Wound's Depth, Shape irregular Wound Explored no FB identified Risk of retained FB explained to pt/guardian? Yes Irrigated w/ Saline (ccs) 0 Wound Prep Hibiclens, Saline Anesthesia 1% Lidocaine, Local Volume Anesthetic (ccs) 2 Wound Debrided minimal Wound Repaired With sutures Suture Size/Type 5:0, Ethilon Layer Closure No Total Number Sutures 3 Sterile Dressing Applied Yes Splint Applied No Sling Applied No Departure Departure Time of Disposition 2317 Disposition DC Home or Self Care(routine) Clinical Impression Primary Impression: Laceration of ear Qualifiers: Encounter type: initial encounter Laterality: left Qualified Code: S01.312A - Laceration without foreign body of left ear, initial encounter Condition STABLE Referrals Noman Gamboa (Family) Patient Instructions DI for Laceration Repair Additional Instructions suture out 8-10 days and recheck if needed Discharge Counseling Counseled pt/family regarding diagnosis, medications/RX, follow up needs Prescriptions Current Visit Scripts MUPIROCIN 2% (Bactroban Oint) 1 MAY TP BID #1 TUBE ED Critical Care Critical Care No at 2771
[2017-01-09 23:38] VITALS: BP 151/85
== END 2017-01-09 23:38 | disposition home or self-care (01) ==
LOC: ER 22:01
PROC: 0HQ3XZZ Repair Left Ear Skin, External Approach (ICD-10-PCS; principal; 2017-01-09)
DX: S01.312A Laceration without foreign body of left ear, initial encounter (principal); I25.10 Atherosclerotic heart disease of native coronary artery without angina pectoris; I10 Essential (primary) hypertension; E11.9 Type 2 diabetes mellitus without complications; Z72.0 Tobacco use; Z23 Encounter for immunization

== ENCOUNTER 2017-05-30 15:37 | Emergency (ER) | payer MEDICARE ==
[~2017-05-30] VITALS: Ht 162.6 cm; Wt 83.0 kg
--- NOTE | 2017-05-30 16:46 | Urgent Treatment Center Report ---
History of Present Issue Date/Time Seen by Provider 05/30/17 7894 Visit Reason Pt arrived:Walked Presenting Problem:PT REPORTS L HIP PAIN AND L KNEE PAIN. PT REPORTS HAS A HISTORY OF SCIATIC PAIN BUT STATES THIS PAIN IS DIFFERENT THAN SCIATIC PAIN. STATES PAIN WORSENS WITH MOVEMENT AND IS WORSE IN THE MORNING. DENIES ANY INJURY. Location if Accident: Onset of symptoms date/time:/ or onset unknown for:MEDICAL HX UNKNOWN Have you (or family members/close friends) recently traveled outside the [place]? N If Yes, where/when: Have you had exposure to infectious disease within the past month? TB? Other? Specify: Patient presents with c/o left hip and knee pain that has worsened over the last 10 days. Per patient, she has been taking medications as prescribed without relief. Denies fall/trauma. States that she has not filled the diclofenac prescription. Currently a patient of a pain clinic in [facility] and states they are not helping her. Hx: arthritis and sciatica. Source patient Exam Limitations clinical condition (due to pain) ALLERGIES Coded Allergies: Adhesives Sulfa (Sulfonamide Antibiotics) codeine (01/09/17) moxifloxacin (From AVELOX) penicillin G Home Medications Active Scripts MUPIROCIN 2% (Bactroban Oint) 1 MAY TP BID #1 TUBE Prov: 01/09/17 Methylprednisolone (Medrol Dose Adolfo) 4 MG PO UD #1 ADOLFO Prov: 04/29/17 Ranitidine Hcl (Zantac) 150 MG PO BID #14 TAB Prov: 04/29/17 Diphenhydramine Hcl (Benadryl 25MG CAP) 1 CAP PO Q8HP #15 CAP Prov: 04/29/17 Reported Medications AMLODIPINE BESYLATE/BENAZEPRIL (Lotrel 5-20 MG Capsule) 1 CAP PO DAILY GABAPENTIN (Gabapentin) 400 MG PO QHS Aspirin 81 MG PO DAILY Atenolol (Atenolol) 12.5 MG PO DAILY Atorvastatin Calcium (Lipitor 20MG) 40 MG PO DAILY ALPRAZOLAM (Alprazolam 0.25MG) 0.25 MG PO PRN PRN ANXIETY Diclofenac Sodium (Voltaren 75mg (GEQ)) 75 MG PO DAILY Sucralfate (Carafate Tab) 1 GM PO ACHS FEXOFENADINE HCL (Fexofenadine HCl) 60 MG PO DAILY Metaxalone (Skelaxin 800MG Tab) 800 MG PO DAILY Venlafaxine Hydrochloride (Effexor XR 75MG) 75 MG PO DAILY Lamotrigine (Lamictal 100Mg) 100 MG PO BID Armodafinil (Nuvigil) 200 MG PO DAILY Montelukast Sodium (Singulair) 10 MG PO QHS Dextroamphetamine/Amphetamine (Adderall 30 MG Tablet) 30 MG PO BID History Medical History General CAD? Yes Angina: Yes MS: No Hypertension? Yes Hyperlipidemia? Yes CHF? No DVT? No PE? No COPD? No Asthma? Yes Anemia? No GERD? No Gastric ulcers? No GI Bleed? No Hernia? No Thyroid Problems? No Hypothyroidism? No CVA? No Seizures? No Diabetes? Yes Insulin Dependent: No Insulin Pump: No Home FSBS? No Renal Insuffiency? No UTI? No Stones? No BPH? No GB Disease: No Nephritic Syndrome? No Asplenia? No Hepatitis? No Sickle Cell Disease? No Arthritis? No Migraines? No Cataracts? Yes Glaucoma? No MRSA? No HIV? No TB? No Anxiety? No Depression? No Cancer? No Immunization HX DT/Tetanus Unknown Surgical Hx Previous Surgery?Y TONSILS BIRTHMARK REMOVED BREAST BIOPSY CARDIAC STENT 1999 Social History Smoking Hx Smoker: Current Every Day Smoker Tobacco: Yes Type Cigarettes Packs/day 1 1/2 - 2 Packs Alcohol Alcohol: No Review of Systems All Other Systems Reviewed and Negative Constitutional denies chills, denies fever Musculoskeletal joint pain (left hip and left knee) Skin denies change in color Physical Exam Vital Signs Vital Signs Date Time Temp Pulse Resp B/P Pulse O2 O2 Flow FiO2 Ox Delivery Rate 05/30 1648 98.4 79 16 160/93 96 05/30 1647 16 05/30 1607 98.4 79 20 160/93 96 05/30 1543 98.4 79 20 160/93 96 General Appearance normal appearance, WD/WN, no apparent distress Respiratory Status Yes: chest symmetrical. No: respiratory distress. Lung Sounds bilateral: normal breath sounds. Cardiovascular regular rate/rhythm, no peripheral edema, no murmur Extremities normal inspection, normal capillary refill, limited range of motion (due to pain), moderately TTP without edema/erythema/ecchymosis Strength 3 Lower Ext (L), 4 Lower Ext (R) Neurologic alert, oriented x 3 Reflexes DTR 2+ knee (R), 2+ knee (L) Mental status anxious and talkative Skin normal color, warm/dry Medical Decision Making LABS/Meds/Orders Pt receiving controlled substance in ED? No Results/Orders Current Medication Orders Sig/Keith Start time Last Medication Dose Route Stop Time Status Admin Ketorolac 0 .STK-MED ONE 05/30 1646 DC Tromethamine .ROUTE Ketorolac 60 MG ONCE ONE 05/30 1645 DC 05/30 Tromethamine IM 05/30 Departure Departure Time of Disposition 1642 Disposition DC Home or Self Care(routine) Clinical Impression Primary Impression: Left hip pain Secondary Impressions: Left knee pain Qualifiers: Chronicity: acute Qualified Code: M25.562 - Pain in left knee Condition STABLE Referrals Noman Gamboa APRN (Family) Patient Instructions DI for Hip Pain Additional Instructions Take medication as prescribed. Do not take diclofenac with ibuprofen as discussed at your visit today. Discussed smoking cessation. Call tomorrow to schedule a follow-up with your primary care provider for further evaluation. Patient verbalizes understanding. Discharge Counseling Counseled pt/family regarding diagnosis, test results, medications/RX, home care, follow up needs Prescriptions Current Visit Scripts Ibuprofen (Ibuprofen 800MG) 800 MG PO TIDP PRN pain #60 TAB at 5684
[2017-05-30 16:48] VITALS: BP 160/93
--- OUTSIDE RECORDS SUMMARY | 2017-06-09 22:46 | External Medical Summary Rpt | CCD ---
Author Author , JASS Organization JASS Address Unknown Phone [email or web address] Care Team Providers Care Emergency Room Physician Name Role Phone FREDI SARATH, FREDI Unavailable Unavailable SARATH ARNRODRIGUE SARATH, ARNOLD Unavailable Unavailable SARATH VIDYA COL, Unavailable Unavailable [...] Unavailable Unavailable MDPLC, JESSICA FARMER MDPLC SHASHANK SORIANO Unavailable Unavailable [facility] Unavailable Unavailable AT [facility], [facility] AT [facility] ROCIO HAM, ROCIO HAM Unavailable Unavailable SWAPNA [...] Unavailable Unavailable EQUIPME, [facility], Unavailable Unavailable [facility], Unavailable Unavailable [facility] JAKE BRIANNA, JAKE BRIANNA Unavailable Unavailable JAKE BRIANNA, JAKE BRIANNA Unavailable Unavailable DANIEL PAZ, DANIEL Unavailable Unavailable JACKSON PAZ, DANIEL Unavailable Unavailable JACKSON Purpose Continuity of Care Document - 09-07-2013 through 2016 Problems Code Diagnosis DOS Provider Status 82030 SPINAL 12-27-2014 [facility] STENOSIS UNSPEC REGION OTH THAN CERVICAL 7245 UNSPECIFIED 12-27-2014 [facility] BACKACHE 86506 OBSTRUCTIVE 11-26-2014 [facility] SLEEP HOME APNEA MEDICAL [...] LUMBAR 11-15-2014 SELENE DEVINE SPRAIN AND STRAIN 15962 DEGEN 10-10-2014 [facility]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 7244 THORACIC/RAMANA 10-10-2014 [facility] MBOSACRAL H SLEEP AND NEURITIS/RA REHA DICULITIS UNSPEC 33952 PAIN IN 07-30-2014 [facility] JOINT, [facility] LOWER LEG INC V571 OTHER 07-30-2014 [facility] PHYSICAL [facility] THERAPY INC 4019 UNSPECIFIED 06-01-2014 [facility] ESSENTIAL CARDIOLOGY HYPERTENSIO AT CENT N 4148 OTHER SPEC 06-01-2014 [facility] CHRONIC AT CENT ISCHEMIC HEART DISEASE 7213 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 JESSICA FARMER SPONDYLOSIS MDPLC WITHOUT MYELOPATHY 2724 OTHER AND 01-27-2014 [facility] UNSPECIFIED [facility] INC HYPERLIPIDE GIBRAN V5869 LONG-TERM 01-27-2014 [facility] (CURRENT) [facility] USE OF INC OTHER MEDICATIONS 4778 ALLERGIC 01-25-2014 [facility] RHINITIS BRIANNA DUE TO OTHER ALLERGEN 66303 CORONARY 01-19-2014 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 SITE UNSPEC V7651 SPECIAL 01-19-2014 JAKE BRIANNA SCREENING FOR MALIGNANT NEOPLASMS COLON 4011 ESSENTIAL 01-15-2014 [facility] HYPERTENSIO CARDIOLOGY N, BENIGN AT CENT 22983 PES 01-02-2014 DANIEL JACKSON ANSERINUS TENDINITIS OR BURSITIS 35777 OTHER 01-01-2014 [facility] CHRONIC BRIANNA ALLERGIC CONJUNCTIVI TIS 4770 ALLERGIC 01-01-2014 [facility] RHINITIS BRIANNA DUE TO POLLEN 57104 EXTRINSIC 01-01-2014 [facility] ASTHMA, BRIANNA UNSPECIFIED 3384 CHRONIC 12-29-2013 FREDI CLEMENS PAIN SYNDROME 78644 OSTEOARTHRO 12-29-2013 FREDI CLEMENS S INVLV MX SITES BUT NOT SPEC GEN V7612 OTHER 11-15-2013 [facility] MAMMOGRAM 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 10409 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 4772 ALLERGIC 10-03-2013 [facility] RHINITIS BRIANNA DUE TO ANIMAL HAIR AND DANDER 16193 ASTHMA, 10-03-2013 [facility] UNSPECIFIED EQUIPMENT , INC UNSPECIFIED STATUS V727 DIAGNOSTIC 10-03-2013 [facility] SKIN AND BRIANNA SENSITIZATI ON TESTS 3674 PRESBYOPIA 09-29-2013 SCIFRES ANG 34954 ESOPHAGEAL 09-14-2013 FREDI CLEMENS REFLUX 24957 UNS 09-14-2013 FREDI CLEMENS GASTRITIS&G ASTRODUODIT IS W/O MENTION HEMORR 4619 ACUTE 09-07-2013 FREDI CLEMENS SINUSITIS, UNSPECIFIED 9953 ALLERGY 09-07-2013 FREDI CLEMENS UNSPECIFIED NOT ELSEWHERE CLASSIFIED Results Labs Lab Lab Date Result Refere Interp Status Commen Order Detail nces retati t Range on Hemoglobin A1c in Blood (04-19-2017 16:16) Hemoglo 04-19- 6.0 % 0.0% Normal complet bin A1c 017 - ed in 16:16 7.0% Blood Procedures Procedure DOS Code Location Performer Comment ELECTRICA A4595 [facility] EMPI INC L 5 STIMULATO R SUPPLIES 2 LEAD PER MONTH ELECTRICA A4595 [facility] E[facility] INC L 5 STIMULATO R SUPPLIES 2 LEAD PER MONTH FULL FACE A7030 [facility] BARTHOLOMEW MASK 5 HOME HOME USED MEDICAL MEDICAL W/POS EQUIPME EQUIPME ARWAY PRESS DEVICE EA FILTER A7038 PUMA BARTHOLOMEW DISPBL 5 HOME HOME USED MEDICAL MEDICAL W/POS EQUIPME EQUIPME ARWAY PRESSURE DEVICE TUBING A7037 PUMA BARTHOLOMEW USED WITH 5 HOME HOME POSITIVE MEDICAL MEDICAL AIRWAY EQUIPME EQUIPME PRESSURE DEVICE CHIROPRAC 46574 SELENE MORTON TIC 5 TIF TIF MANIPLTV TX EXTRASPIN AL 1/> REGION CHIROPRAC 47090 SELENE MOTRON TIC 5 TIF TIF MANIPULAT TOR TX SPINAL 3-4 REGIONS CHIROPRA 67438 SELENE MORTON TIC 5 TIF TIF MANIPLTV TX EXTRASPIN AL 1/> REGION CHIROPRA 93883 SELENE MORTON TIC 5 TIF TIF MANIPULAT TOR TX SPINAL 3-4 REGIONS ELECTRICA A4595 [facility] HipvanI INC L 5 STIMULATO R SUPPLIES 2 LEAD PER MONTH LEAD A4557 [facility]MP[facility] INC EMPI INC WIRES PER 5 PAIR FILTER A7038 PUMA PUMA DISPBL 5 HOME HOME USED MEDICAL MEDICAL W/POS EQUIPME EQUIPME ARWAY PRESSURE DEVICE FILTER A7039 PUMA DORADORELL NON 5 HOME HOME DISPBL MEDICAL MEDICAL USED EQUIPME EQUIPME W/POS ARWAY PRESS DEVICE POLYSOM 54295 [facility] 6/>YRS 5 [facility] SLEEP W/CPAP 4/> ADDL BEE ATTND LUMB L0627 PU[facility] PUMA ORTHOSIS 5 HOME HOME SAGIT MEDICAL MEDICAL CNTRL EQUIPME EQUIPME RIGID A&P PANEL PREFAB TENS E0730 EMPI HipvanI INC DEVICE 5 4/MORE LEADS MULTI NERVE STIMULATI ON CHIROPRA 58578 SELENE MORTON TIC 5 TIF TIF MANIPULAT TOR TX SPINAL 3-4 REGIONS CHIROPRA 94107 SELENE MORTON TIC 5 TIF TIF MANIPLTV TX EXTRASPIN AL 1/> REGION FILTER A7038 PUMA PUMA DISPBL 4 HOME HOME USED MEDICAL MEDICAL W/POS EQUIPME EQUIPME ARWAY PRESSURE DEVICE FACE MASK A7031 PUMA PUMA 4 HOME HOME INTERFACE MEDICAL MEDICAL REPLCMT EQUIPME EQUIPME FULL FACE MASK EA TUBING A7037 PUMA BARTHOLOMEW USED WITH 4 HOME HOME POSITIVE MEDICAL MEDICAL AIRWAY EQUIPME EQUIPME PRESSURE DEVICE [facility] 40745 SELENE MORTON TIC 4 TIF TIF MANIPULAT TOR TX SPINAL 3-4 REGIONS CHIROPRAC 87703 SELENE MORTON TIC 4 TIF TIF MANIPLTV TX EXTRASPIN AL 1/> REGION TENS E0730 [facility]MP[facility] INC EMPI INC DEVICE 4 4/MORE LEADS MULTI NERVE STIMULATI ON THERAPEUT 63505 ANATOLIY COPE IC PX 1/> 4 [facility] AREAS INC INC EACH 15 MIN EXERCISES HEADGEAR A7035 PUMA PUMA USED 4 HOME HOME W/POSITIV MEDICAL MEDICAL E AIRWAY EQUIPME EQUIPME PRESSURE DEVICE FULL FACE A7030 PUMA PUMA MASK 4 HOME HOME USED MEDICAL MEDICAL W/POS EQUIPME EQUIPME ARWAY PRESS DEVICE EA FILTER A7038 PUMA PUMA DISPBL 4 HOME HOME USED MEDICAL MEDICAL W/POS EQUIPME EQUIPME ARWAY PRESSURE DEVICE THERAPEUT 73251 ANATOLIY COPE IC PX 1/> 4 [facility] AREAS INC INC EACH 15 MIN EXERCISES APPL 79684 ANATOLIY COPE MODALITY 4 [facility] 1/> AREAS INC INC ELEC STIMJ EA 15 MIN CHIROPRAC 06083 SELENE MORTON TIC 4 TIF TIF MANIPULAT TOR TX SPINAL 3-4 REGIONS CHIROPRAC 98178 SELENE MORTON TIC 4 TIF TIF MANIPLTV TX EXTRASPIN AL 1/> REGION THERAPEUT 47914 ANATOLIY COPE IC PX 1/> 4 [facility] AREAS INC INC EACH 15 MIN EXERCISES THERAPEUT 42573 ANATOLIY COPE IC PX 1/> 4 [facility] AREAS INC INC EACH 15 MIN EXERCISES CHIROPRAC 90541 SELENE MORTON TIC 4 TIF TIF MANIPLTV TX EXTRASPIN AL 1/> REGION CHIROPRAC 35052 SELENE MORTON TIC 4 TIF TIF MANIPULAT TOR TX SPINAL 3-4 REGIONS CHIROPRAC 89052 SELENE MORTON TIC 4 TIF TIF MANIPULAT TOR TX SPINAL 3-4 REGIONS CHIROPRAC 73094 SELENE MORTON TIC 4 TIF TIF MANIPLTV TX EXTRASPIN AL 1/> REGION APPL 58919 [facility] SELENE MODALITY 4 TIF TIF 1/> AREAS ELEC STIMJ UNATTENDE D APPL 94440 MORTON SELENE MODALITY 4 TIF TIF 1/> AREAS ELEC STIMJ UNATTENDE D CHIROPRAC 93691 MORTON SELENE TIC 4 TIF TIF MANIPLTV TX EXTRASPIN AL 1/> REGION CHIROPRAC 21963 [facility] SELENE TIC 4 TIF TIF MANIPULAT TOR TX SPINAL 3-4 REGIONS CHIROPRAC 65861 [facility] SELENE TIC 4 TIF TIF MANIPULAT TOR TX SPINAL 3-4 REGIONS CHIROPRAC 36942 [facility] SELENE TIC 4 TIF TIF MANIPLTV TX EXTRASPIN AL 1/> REGION APPL 76232 [facility] SELENE MODALITY 4 TIF TIF 1/> AREAS ELEC STIMJ UNATTENDE D APPL 14846 SELENE MORTON MODALITY 4 TIF TIF 1/> AREAS ELEC STIMJ UNATTENDE D CHIROPRAC 20027 SELENE MORTON TIC 4 TIF TIF MANIPLTV TX EXTRASPIN AL 1/> REGION CHIROPRAC 85050 SELENE MORTON TIC 4 TIF TIF MANIPULAT TOR TX SPINAL 3-4 REGIONS RINGERS J7120 JESSICA FARMER LACTATE 4 E. FARMER CRISTY INFUSION MDPLC UP TO 1000 CC RINGERS J7120 JESSICA FARMER LACTATE 4 E. FARMER CRISTY INFUSION MDPLC UP TO 1000 CC LIPID 31218 [facility]E PANEL 4 [facility] INC INC HEPATIC 82723 ANATOLIY COPE FUNCTION 4 [facility] PANEL INC INC PROF SVCS 54155 SWAPNA SWAPNA ALLG 4 BRIANNA BRIANNA IMMNTX X W/PRV ALLGIC XTRCS NJXS HUMDIFIR E0562 PUMA BARTHOLOMEW HEATED 4 HOME HOME USED MEDICAL MEDICAL W/POS EQUIPME EQUIPME ARWAY PRESSURE DEVICE PRESSURIZ 80107 [facility] ED/[address] SSURIZED INHALATIO N TREATMENT COLOREC G[address] SCR; COLNSCPY NOT MEET HI RISK COLONOSCO 20957 JAKE BRIANNA JAKE BRIANNA PY FLX DX 4 W/COLLJ SPEC WHEN PFRMD INJECTION J2001 [address] LIDOCAINE HCL INTRAVENO US INFUS 10 MG ANES 15886 BURBERRY BURBERRY LOWER 4 JEOVANNY JEOVANNY INTESTINE ENDOSCOPY DISTAL DUODENUM THERAPEUT 07714 ANATOLIY COPE IC PX 1/> 4 [facility] AREAS INC INC EACH 15 MIN EXERCISES APPL 07030 ANATOLIY COPE MODALITY 4 [facility] 1/> AREAS INC INC ELEC STIMJ UNATTENDE D APPLICATI 80800 ANAT[facility]IY COPE ON 4 [facility] MODALITY INC INC 1/> AREAS HOT/COLD PACKS APPL 84804 ANATOLIY COPE MODALITY 4 [facility] 1/> AREAS INC INC ULTRASOUN D EA 15 MIN PHYSICAL 70223 ANATOLIY HENDERSON THERAPY 4 [facility] ELISHA EVALUATIO INC N PREPJ& 37244 SWAP[facility] SWAPNA ALLERGEN 4 BRIANNA BRIANNA IMMUNOTHE RAPY 1/TOBACCO STRIPPER HAND ANTIGEN TUBING A7037 [facility] BARTHOLOMEW USED WITH 4 HOME HOME POSITIVE MEDICAL MEDICAL AIRWAY EQUIPME EQUIPME PRESSURE DEVICE HEADGEAR A7035 [facility] BARTHOLOMEW USED 4 HOME [...] W/POS EQUIPME EQUIPME ARWAY PRESS DEVICE EA RADIOLOGI 98110 DANIEL Quiroz EXAM 4 JACKSON JACKSON KNEE COMPLETE 4/MORE VIEWS SPMTRY 36644 SWAPNA SWAPNA W/VC 4 BRIANNA BRIANNA EXPIRATOR Y CELESTE W/WO MXML VOL VNTJ CHIROPRAC 28122 VIDYA COTTERON TIC 4 COL COL MANIPULAT TOR TX SPINAL 3-4 REGIONS MANUAL 29862 VIDYA COTTERON THERAPY 4 COL COL TQS 1/> REGIONS EACH 15 MINUTES MANUAL 79395 VIDYA HOPKINSESON THERAPY 4 COL COL TQS 1/> REGIONS EACH 15 MINUTES APPL 82879 VIDYA COTTERON MODALITY 4 COL COL 1/> AREAS ELEC STIMJ UNATTENDE D APPL 48745 VIDYA COTTERON MODALITY 4 COL COL 1/> AREAS TRACTION MECHANICA L CHIROPRAC 84388 VIDYA DASILVA TIC 4 COL COL MANIPULAT TOR TX SPINAL 3-4 REGIONS SCREENING G0202 SHASHANK ENCARNACION 4 MAR MAR MAMMOGRAP HY RICHY INCL CAD WHEN PERFORMD COMPUTER- 45669 SHASHANK ENCARNACION AIDED 4 MAR MAR DETECTION SCREENING MAMMOGRAP HY APPL 00202 VIDYA DASILVA MODALITY 4 COL COL 1/> AREAS ELEC STIMJ UNATTENDE D MANUAL 86625 VIDYA COTTERON THERAPY 4 COL COL TQS 1/> REGIONS EACH 15 MINUTES APPL 12269 VIDYA COTTERON MODALITY 4 COL COL 1/> AREAS TRACTION MECHANICA L CHIROPRAC 08002 VIDYA COTTERON TIC 4 COL COL MANIPULAT TOR TX SPINAL 3-4 REGIONS CHIROPRAC 16443 VIDYA COTTERON TIC 4 COL COL MANIPULAT TOR TX SPINAL 3-4 REGIONS APPL 52536 VIDYA COTTERON MODALITY 4 COL COL 1/> AREAS TRACTION MECHANICA L APPL 27224 VIDYA COTTERON MODALITY 4 COL COL 1/> AREAS ELEC STIMJ UNATTENDE D MANUAL 68930 VIDYA HOPKINSESON THERAPY 4 COL COL TQS 1/> REGIONS EACH 15 MINUTES MANUAL 17077 VIDYA HOPKINSESON THERAPY 4 COL COL TQS 1/> REGIONS EACH 15 MINUTES APPL 34706 VIDYA COTTERON MODALITY 4 COL COL 1/> AREAS ELEC STIMJ UNATTENDE D APPL 85565 VIDYA COTTERON MODALITY 4 COL COL 1/> AREAS TRACTION MECHANICA L CHIROPRAC 54186 VIDYA DASILVA TIC 4 COL COL MANIPULAT TOR TX SPINAL 3-4 REGIONS DRUG SCR G0434 ROC[facility] BOBO NOT 4 CHROMATOG RAPHIC; ANY NUMBER PT ENC TUBING A7037 SWAPNA SWAPNA USED WITH 4 BRIANNA BRIANNA POSITIVE AIRWAY PRESSURE DEVICE PRESSURIZ 42486 SWAPNA SWAPNA ED/NONPRE 4 BRIANNA BRIANNA SSURIZED INHALATIO N TREATMENT PERCUTANE 41503 SWAPNA SWAPNA OUS TESTS 4 BRIANNA BRIANNA W/ALLERGE ANCA EXTRACTS INTRACUTA 91627 SWAPNA SWAPNA NEOUS 4 BRIANNA BRIANNA TESTS W/ALLERGE ANCA EXTRACTS BRNCDILAT 98193 SWAPNA SWAPNA RSPSE 4 BRIANNA BRIANNA SPMTRY PRE&POST- BRNCDILAT ADMN SPACR A4627 MT MED MT MED BAG/RESRV 4 EQUIPMENT EQUIPMENT OR W/WO INC INC MASK W/METRD DOSE INHAL DEMO&/HYUN 26538 SAWPNA SWAPNA L OF PT 4 BRIANNA BRIANNA UTILIZ AERSL GEN/NEB/I NHLR/IP OPHTH 84096 SCIFRES SCIFRES MEDICAL 4 ANG ANG XM&EVAL COMPRE NEW PT 1/> VST DETERMINA 61745 SCIFRES SCIFRES TION 4 ANG ANG REFRACTIV E STATE APPLICATI 33997 VIDYA DASILVA ON 4 COL COL MODALITY 1/> AREAS HOT/COLD PACKS DRUG SCR G0434 ROCIO BOBO NOT 4 CHROMATOG RAPHIC; ANY NUMBER PT ENC CHIROPRAC 64295 VIDYA DASILVA TIC 4 COL COL MANIPULAT TOR TX SPINAL 3-4 REGIONS MANUAL 71860 VIDYA VIDYA THERAPY 4 COL COL TQS 1/> REGIONS EACH 15 MINUTES APPL 69173 VIDYA VIDYA MODALITY 4 COL COL 1/> AREAS ELEC STIMJ UNATTENDE D APPL 13329 VIDYA DASILVA MODALITY 4 COL COL 1/> AREAS TRACTION MECHANICA L FILTER A7039 PUMA BARTHOLOMEW NON 4 HOME HOME DISPBL MEDICAL MEDICAL USED EQUIPME EQUIPME W/POS ARWAY PRESS DEVICE FILTER A7038 PUMA PUMA DISPBL 4 HOME HOME USED MEDICAL MEDICAL W/POS EQUIPME EQUIPME ARWAY PRESSURE DEVICE HEADGEAR A7035 PUMA BARTHOLOMEW USED 4 HOME HOME W/POSITIV MEDICAL MEDICAL E AIRWAY EQUIPME EQUIPME PRESSURE DEVICE NASL A7034 PUMA BARTHOLOMEW INTRFCE 4 HOME HOME POS ARWAY MEDICAL MEDICAL PRSS EQUIPME EQUIPME DEVC W/WO HEAD STRAP TUBING A7037 PUMA BARTHOLOMEW USED WITH 4 HOME HOME POSITIVE MEDICAL MEDICAL AIRWAY EQUIPME EQUIPME PRESSURE DEVICE Encounters Encounter Start End Date Code Location Performer Type Date OFFICE 33431 SELENE COFFEY 5 5 TIF [facility] T VISIT 10 MINUTES OFFICE 07577 [facility] 5 5 [facility] SLEEP JUSTIN T [facility]ISIT AND REHA 15 MINUTES [facility] - 5 5 [facility] ANATOLIY - 4 5 [facility] 4 4 [facility] VISIT CARDIOLOG 15 Y AT CENT MINUTES OFFICE 41583 SELENE COFFEY 4 4 TIF TIF T NEW 30 MINUTES HOSPITAL ANATOLIY - 4 4 [facility] - 4 4 [facility] 4 [facility] VISIT CARDIOLOG 15 Y AT CENT MINUTES HOSPITAL ANATOLIY - 4 4 [facility] OUTPATIEN INC T OFFICE 02488 DANIEL SANCHEZ CONSULTAT 4 4 JACKSON RODRIGUEZ NEW/ESTAB PATIENT 60 MIN OFFICE 56368 SWAPNA LARSENHBURN OUTPATIEN 4 4 BRIANNA BRIANNA T VISIT 25 MINUTES OFFICE 19319 FREDI RAI OUTPATIEN 4 4 SARATH SARATH T VISIT 15 MINUTES OFFICE 62407 [facility] OUTPATIEN 4 4 T VISIT 15 MINUTES OFFICE 06089 [facility] OUTPATIEN 4 4 T VISIT 15 MINUTES OFFICE 61018 VIDYA DASILVA OUTPATIEN 4 4 COL COL T VISIT 10 MINUTES OFFICE 08625 [facility] OUTPATIEN 4 4 T VISIT 15 MINUTES [facility] - 4 4 [facility] OUTPATIEN T OFFICE 57253 [facility] OUTPATIEN 4 4 T VISIT 15 MINUTES OFFICE 65837 [facility] SOLIZ OUTPATIEN 4 4 NAZANIN NAZANIN T NEW 30 MINUTES OFFICE 31423 [facility] OUTPATIEN 4 4 T VISIT 15 MINUTES OFFICE 13467 [facility] OUTPATIEN 4 4 T VISIT 15 MINUTES OFFICE 33765 SWAPNA BARCENAS CONSULTAT 4 4 BRIANNA REED ION NEW/ESTAB PATIENT 80 MIN OFFICE 17439 [facility] OUTPATIEN 4 4 T NEW 45 MINUTES OFFICE 75360 VIDYA DASILVA OUTPATIEN 4 4 COL COL T NEW 20 MINUTES OFFICE 11535 FREDI RAI OUTPATIEN 4 4 SARATH SARATH T VISIT 15 MINUTES OFFICE 55708 FREDI RAI OUTPATIEN 4 4 SARATH SARATH T VISIT 15 MINUTES
--- OUTSIDE RECORDS SUMMARY | 2017-06-09 22:46 | External Medical Summary Rpt | CCD ---
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 Role Phone FREDI SARATH, FREDI Unavailable [...] Unavailable SARAH [facility] Unavailable Unavailable AT [facility], [facility] ROCIO HAM, ROCIO HAM Unavailable Unavailable [...] Unavailable Unavailable [facility], [facility], Unavailable Unavailable [facility], Unavailable Unavailable [facility] JAKE BRIANNA, JAKE BRIANNA Unavailable Unavailable JAKE BRIANNA, JAKE BRIANNA Unavailable Unavailable DANIEL PAZ, DANIEL Unavailable Unavailable JACKSON PAZ, DANIEL Unavailable Unavailable JACKSON Purpose Continuity of Care Document - 09-07-2013 through 2016 Problems Code Diagnosis DOS Provider Status 74291 SPINAL 12-27-2014 [facility] STENOSIS UNSPEC REGION OTH THAN CERVICAL 7245 UNSPECIFIED 12-27-2014 [facility] BACKACHE 06020 OBSTRUCTIVE 11-26-2014 [facility]NEA [facility]ICAL [...] LUMBAR 11-15-2014 SELENE DEVINE SPRAIN AND STRAIN 22043 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-2014 [facility]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 7244 THORACIC/RAMANA 10-10-2014 [facility] MBOSACRAL H SLEEP AND NEURITIS/RA REHA DICULITIS UNSPEC 57568 PAIN IN 07-30-2014 [facility] JOINT, [facility] LOWER LEG INC V571 OTHER 07-30-2014 [facility] PHYSICAL [facility] THERAPY INC 4019 UNSPECIFIED 06-01-2014 [facility] HYPERTENSIO AT CENT N 4148 OTHER SPEC 06-01-2014 [facility] FORMS CARDIOLOGY CHRONIC AT CENT ISCHEMIC HEART DISEASE 7213 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 JESSICA FARMER SPONDYLOSIS MDPLC WITHOUT MYELOPATHY 2724 OTHER AND 01-27-2014 [facility] UNSPECIFIED [facility] INC HYPERLIPIDE GIBRAN V5869 LONG-TERM 01-27-2014 [facility] (CURRENT) [facility] USE OF INC OTHER MEDICATIONS 4778 ALLERGIC 01-25-2014 [facility] RHINITIS BRIANNA DUE TO OTHER ALLERGEN 75789 CORONARY 01-19-2014 [facility] OSIS [place] CORONARY ARTERY 5368 DYSPEPSIA&O 01-19-2014 [facility] SPEC [facility]OSPITAL DISORDERS FUNCTION STOMACH 26326 UNSPECIFIED 01-19-2014 [facility] ARTHROPATHY SITE UNSPECIFIED 7226 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 UNSPEC V7651 SPECIAL 01-19-2014 JAKE BRIANNA SCREENING FOR MALIGNANT NEOPLASMS COLON 4011 ESSENTIAL 01-15-2014 [facility] HYPERTENSIO CARDIOLOGY N, BENIGN AT CENT 17779 PES 01-02-2014 DANIEL JACKSON ANSERINUS TENDINITIS OR BURSITIS 14711 OTHER 01-01-2014 [facility] CHRONIC BRIANNA ALLERGIC CONJUNCTIVI TIS 4770 ALLERGIC 01-01-2014 [facility] RHINITIS BRIANNA DUE TO POLLEN 38305 EXTRINSIC 01-01-2014 [facility] ASTHMA, BRIANNA UNSPECIFIED 3384 CHRONIC 12-29-2013 FREDI CLEMENS PAIN SYNDROME 25112 OSTEOARTHRO 12-29-2013 FREDI CLEMENS S INVLV MX SITES BUT NOT SPEC GEN V7612 OTHER 11-15-2013 [facility] MAMMOGRAM 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 13510 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 4772 ALLERGIC 10-03-2013 [facility] RHINITIS BRIANNA DUE TO ANIMAL HAIR AND DANDER 55093 ASTHMA, 10-03-2013 [facility] UNSPECIFIED EQUIPMENT , INC UNSPECIFIED STATUS V727 DIAGNOSTIC 10-03-2013 [facility] SKIN AND BRIANNA SENSITIZATI ON TESTS 3674 PRESBYOPIA 09-29-2013 SCIFRES ANG 16300 ESOPHAGEAL 09-14-2013 FREDI CLEMENS REFLUX 83780 UNS 09-14-2013 FREDI CLEMENS GASTRITIS&G ASTRODUODIT IS [...] MEDICAL AIRWAY EQUIPME EQUIPME PRESSURE DEVICE CHIROPRAC 69367 SELENE MORTON TIC 5 TIF TIF MANIPLTV TX EXTRASPIN AL 1/> REGION CHIROPRAC 57093 SELENE MORTON TIC 5 TIF TIF MANIPULAT TOR TX SPINAL 3-4 REGIONS CHIROPRA 44540 SELENE MORTON TIC 5 TIF TIF MANIPLTV TX EXTRASPIN AL 1/> REGION CHIROPRA 03258 SELENE MORTON TIC 5 TIF TIF MANIPULAT TOR TX SPINAL 3-4 REGIONS ELECTRICA A4595 [facility] INC L 5 STIMULATO R SUPPLIES 2 LEAD PER MONTH LEAD A4557 [facility] INC EMPI INC WIRES PER 5 PAIR FILTER A7038 [facility] PUMA DISPBL 5 HOME HOME USED MEDICAL MEDICAL W/POS EQUIPME EQUIPME ARWAY PRESSURE DEVICE FILTER A7039 [facility] DORADORELL NON 5 HOME HOME DISPBL MEDICAL MEDICAL USED EQUIPME EQUIPME W/POS ARWAY PRESS DEVICE POLYSOM 69893 [facility] 6/>YRS 5 [facility] SLEEP W/CPAP 4/> ADDL BEE ATTND LUMB L0627 [facility] PUMA ORTHOSIS 5 HOME HOME SAGIT MEDICAL MEDICAL CNTRL EQUIPME EQUIPME RIGID A&P PANEL PREFAB TENS E0730 [facility] Estately[facility] INC DEVICE 5 4/MORE LEADS MULTI NERVE STIMULATI ON CHIROPRA 42813 SELENE MORTON TIC 5 TIF TIF MANIPULAT TOR TX SPINAL 3-4 REGIONS CHIROPRA 55799 SELENE MORTON TIC 5 TIF TIF MANIPLTV [...] MEDICAL MEDICAL AIRWAY EQUIPME EQUIPME [facility]ESSURE [facility]ICE [facility] 05275 SELENE MORTON TIC 4 TIF TIF MANIPULAT TOR TX SPINAL 3-4 REGIONS CHIROPRAC 26294 SELENE MORTON TIC 4 TIF TIF MANIPLTV TX EXTRASPIN AL 1/> REGION TENS E0730 EMPI INC EMPI INC DEVICE 4 4/MORE LEADS MULTI NERVE STIMULATI ON THERAPEUT 67752 ANATOLIY COPE IC PX 1/> 4 [facility] AREAS INC INC EACH 15 MIN EXERCISES HEADGEAR A7035 PUMA PUMA USED 4 HOME HOME W/POSITIV MEDICAL MEDICAL E AIRWAY EQUIPME EQUIPME PRESSURE DEVICE FULL FACE A7030 PUMA PUMA MASK 4 HOME HOME USED MEDICAL MEDICAL W/POS EQUIPME EQUIPME ARWAY PRESS DEVICE EA FILTER A7038 PUMA PUMA DISPBL 4 HOME HOME USED MEDICAL MEDICAL W/POS EQUIPME EQUIPME ARWAY PRESSURE DEVICE THERAPEUT 11030 ANATOLIY COPE IC PX 1/> 4 [facility] AREAS INC INC EACH 15 MIN EXERCISES APPL 19363 ANATOLIY COPE MODALITY 4 [facility] 1/> AREAS INC INC ELEC STIMJ EA 15 MIN CHIROPRAC 35448 SELENE MORTON TIC 4 TIF TIF MANIPULAT TOR TX SPINAL 3-4 REGIONS CHIROPRAC 41673 SELENE MORTON TIC 4 TIF TIF MANIPLTV TX EXTRASPIN AL 1/> REGION THERAPEUT 48430 ANATOLIY COPE IC PX 1/> 4 [facility] AREAS INC INC EACH 15 MIN EXERCISES THERAPEUT 22741 ANATOLIY COPE IC PX 1/> 4 [facility] AREAS INC INC EACH 15 MIN EXERCISES CHIROPRAC 17894 SELENE MORTON TIC 4 TIF TIF MANIPLTV TX EXTRASPIN AL 1/> REGION CHIROPRAC 13317 SELENE MORTON TIC 4 TIF TIF MANIPULAT TOR TX SPINAL 3-4 REGIONS CHIROPRAC 72055 SELENE MORTON TIC 4 TIF TIF MANIPULAT TOR TX SPINAL 3-4 REGIONS CHIROPRAC 91802 SELENE MORTON TIC 4 TIF TIF MANIPLTV TX EXTRASPIN AL 1/> REGION APPL 93309 [facility]ORTON SELENE MODALITY 4 TIF TIF 1/> AREAS ELEC STIMJ UNATTENDE D APPL 11304 [facility] SELENE MODALITY 4 TIF TIF 1/> AREAS ELEC STIMJ UNATTENDE D CHIROPRAC 59957 MORTON SELENE TIC 4 TIF TIF MANIPLTV TX EXTRASPIN AL 1/> REGION CHIROPRAC 31530 MORTON SELENE TIC 4 TIF TIF MANIPULAT TOR TX SPINAL 3-4 REGIONS CHIROPRAC 73746 MORTON SELENE TIC 4 TIF TIF MANIPULAT TOR TX SPINAL 3-4 REGIONS CHIROPRAC 66001 MORTON SELENE TIC 4 TIF TIF MANIPLTV TX EXTRASPIN AL 1/> REGION APPL 96805 MORTON SELENE MODALITY 4 TIF TIF 1/> AREAS ELEC STIMJ UNATTENDE D APPL 36982 SELENE MORTON MODALITY 4 TIF TIF 1/> AREAS ELEC STIMJ UNATTENDE D CHIROPRAC 69555 SELENE MORTON TIC 4 TIF TIF MANIPLTV TX EXTRASPIN AL 1/> REGION CHIROPRAC 00686 SELENE MORTON TIC 4 TIF TIF MANIPULAT TOR TX SPINAL 3-4 REGIONS RINGERS J7120 JESSICA FARMER LACTATE 4 E. FARMER CRISTY INFUSION MDPLC UP TO 1000 CC RINGERS J7120 JESSICA FARMER LACTATE 4 E. FARMER CRISTY INFUSION MDPLC UP TO 1000 CC LIPID 60143 [facility] PANEL 4 [facility] INC INC HEPATIC 90786 ANATOLIY COPE FUNCTION 4 [facility] PANEL INC INC PROF SVCS 79037 SW[facility] SWAPNA ALLG 4 BRIANNA BRIANNA IMMNTX X W/PRV ALLGIC XTRCS NJXS HUMDIFIR E0562 [facility] BARTHOLOMEW HEATED 4 HOME HOME USED MEDICAL MEDICAL W/POS EQUIPME EQUIPME ARWAY PRESSURE DEVICE PRESSURIZ 94729 [facility] ED/[address] SSURIZED INHALATIO N TREATMENT COLOREC G[address] SCR; COLNSCPY NOT MEET HI RISK COLONOSCO 81877 JAKE BRIANNA JAKE BRIANNA PY FLX DX 4 W/COLLJ SPEC WHEN PFRMD INJECTION J2001 [address] LIDOCAINE HCL INTRAVENO US INFUS 10 MG ANES 82124 BURBERRY BURBERRY LOWER 4 JEOVANNY JEOVANNY INTESTINE ENDOSCOPY DISTAL DUODENUM THERAPEUT 78211 ANATOLIY COPE IC PX 1/> 4 [facility] AREAS INC INC EACH 15 MIN EXERCISES APPL 07715 ANATOLIY COPE MODALITY 4 [facility] 1/> AREAS INC INC ELEC STIMJ UNATTENDE D APPLICATI 85164 ANATOLIY COPE ON 4 [facility] MODALITY INC INC 1/> AREAS HOT/COLD PACKS APPL 36803 ANATOLIY COPE MODALITY 4 [facility] 1/> AREAS INC INC ULTRASOUN D EA 15 MIN PHYSICAL 86098 ANATOLIY HENDERSON THERAPY 4 [facility] ELISHA EVALUATIO INC N PREPJ& 40045 SWAPNA SWAPNA ALLERGEN 4 BRIANNA BRIANNA IMMUNOTHE RAPY 1/TUR[place] PICKER ANTIGEN TUBING A7037 PU[facility] BARTHOLOMEW USED WITH [...] EQUIPME EQUIPME ARWAY PRESS DEVICE EA RADIOLOGI 79602 DANIEL Quiroz EXAM 4 JACKSON JACKSON KNEE COMPLETE 4/MORE VIEWS SPMTRY 73532 SWAPNA SWAPNA W/VC 4 BRIANNA BRIANNA EXPIRATOR Y CELESTE W/WO MXML VOL VNTJ CHIROPRAC 69678 VIDYA COTTERON TIC 4 COL COL MANIPULAT TOR TX SPINAL 3-4 REGIONS MANUAL 92859 VIDYA COTTERON THERAPY 4 COL COL TQS 1/> REGIONS EACH 15 MINUTES MANUAL 19857 IVDYA HOPKINSESON THERAPY 4 COL COL TQS 1/> REGIONS EACH 15 MINUTES APPL 08326 VIDYA COTTERON MODALITY 4 COL COL 1/> AREAS ELEC STIMJ UNATTENDE D APPL 94432 VIDYA COTTERON MODALITY 4 COL COL 1/> AREAS TRACTION MECHANICA L CHIROPRAC 82688 VIDYA DASILVA TIC 4 COL COL MANIPULAT TOR TX SPINAL 3-4 REGIONS SCREENING G0202 SHASHANK ENCARNACION 4 MAR MAR MAMMOGRAP HY RICHY INCL CAD WHEN PERFORMD COMPUTER- 31225 SHASHANK ENCARNACION AIDED 4 MAR MAR DETECTION SCREENING MAMMOGRAP HY APPL 08850 VIDYA DASILVA MODALITY 4 COL COL 1/> AREAS ELEC STIMJ UNATTENDE D MANUAL 45048 VIDYA COTTERON THERAPY 4 COL COL TQS 1/> REGIONS EACH 15 MINUTES APPL 67693 VIDYA COTTERON MODALITY 4 COL COL 1/> AREAS TRACTION MECHANICA L CHIROPRAC 00785 VIDYA COTTERON TIC 4 COL COL MANIPULAT TOR TX SPINAL 3-4 REGIONS CHIROPRAC 04319 VIDYA COTTERON TIC 4 COL COL MANIPULAT TOR TX SPINAL 3-4 REGIONS APPL 50151 VIDYA COTTERON MODALITY 4 COL COL 1/> AREAS TRACTION MECHANICA L APPL 62576 VIDYA COTTERON MODALITY 4 COL COL 1/> AREAS ELEC STIMJ UNATTENDE D MANUAL 54380 VIDYA HOPKINSESON THERAPY 4 COL COL TQS 1/> REGIONS EACH 15 MINUTES MANUAL 39458 VIDYA HOPKINSESON THERAPY 4 COL COL TQS 1/> REGIONS EACH 15 MINUTES APPL 48493 VIDYA COTTERON MODALITY 4 COL COL 1/> AREAS ELEC STIMJ UNATTENDE D APPL 87812 VIDYA COTTERON MODALITY 4 COL COL 1/> AREAS TRACTION MECHANICA L CHIROPRAC 37252 VIDYA DASILVA TIC 4 COL COL MANIPULAT TOR TX SPINAL 3-4 REGIONS DRUG SCR G0434 [facility] BOBO NOT 4 CHROMATOG RAPHIC; ANY NUMBER PT ENC TUBING A7037 SWAPNA SWAPNA USED WITH 4 BRIANNA BRIANNA POSITIVE AIRWAY PRESSURE DEVICE PRESSURIZ 96186 SWAPNA SWAPNA ED/NONPRE 4 BRIANNA BRIANNA SSURIZED INHALATIO N TREATMENT PERCUTANE 69517 SWAPNA SWAPNA OUS TESTS 4 BRIANNA BRIANNA W/ALLERGE ANCA EXTRACTS INTRACUTA 63474 SWAPNA SWAPNA NEOUS 4 BRIANNA BRIANNA TESTS W/ALLERGE ANCA EXTRACTS BRNCDILAT 36965 SWAPNA SWAPNA RSPSE 4 BRIANNA BRIANNA SPMTRY PRE&POST- BRNCDILAT ADMN SPACR A4627 MT MED MT MED BAG/RESRV 4 EQUIPMENT EQUIPMENT OR W/WO INC INC MASK W/METRD DOSE INHAL DEMO&/HYUN 06025 SWAPNA SWAPNA L OF PT 4 BRIANNA BRIANNA UTILIZ AERSL GEN/NEB/I NHLR/IP OPHTH 87778 SCIFRES SCIFRES MEDICAL 4 ANG ANG XM&EVAL COMPRE NEW PT 1/> VST DETERMINA 33162 SCIFRES SCIFRES TION 4 ANG ANG REFRACTIV E STATE APPLICATI 83875 VIDYA DASILVA ON 4 COL COL MODALITY 1/> AREAS HOT/COLD PACKS DRUG SCR G0434 [facility] BOBO NOT 4 CHROMATOG RAPHIC; ANY NUMBER PT ENC CHIROPRAC 67146 VIDYA DASILVA TIC 4 COL COL MANIPULAT TOR TX SPINAL 3-4 REGIONS MANUAL 77974 VIDYA VIDYA THERAPY 4 COL COL TQS 1/> REGIONS EACH 15 MINUTES APPL 24596 VIDYA VIDYA MODALITY 4 COL COL 1/> AREAS ELEC STIMJ UNATTENDE D APPL 76850 VIDYA DASILVA MODALITY 4 COL COL 1/> [...] Date Code Location Performer Type Date OFFICE 13455 SELENE COFFEY 5 5 TIF [facility] T VISIT 10 MINUTES OFFICE 62506 [facility] OUTPATIEN 5 5 [facility] SLEEP JUSTIN T VISIT AND REHA 15 MINUTES [facility] - 5 5 [facility] ANATOLIY - 4 5 [facility] OUTPATIEN [facility] 4 4 [facility] 91926 [facility] OUTPATIEN 4 4 [facility] VISIT CARDIOLOG 15 Y AT CENT MINUTES OFFICE 03230 SELENE COFFEY 4 4 TIF TIF T NEW 30 MINUTES HOSPITAL ANATOLIY - 4 4 [facility] OUTPATIEN [facility] - 4 4 [facility] 97674 [facility] OUTPATIEN 4 4 [facility] VISIT CARDIOLOG 15 Y AT CENT MINUTES HOSPITAL ANATOLIY - 4 4 [facility] OUTPATIEN INC T OFFICE 96027 DANIEL SANCHEZ CONSULTAT 4 4 JACKSON RODRIGUEZ NEW/ESTAB PATIENT 60 MIN OFFICE 76711 SWAPNA LARSENHBURN OUTPATIEN 4 4 BRIANNA BRIANNA T VISIT 25 MINUTES OFFICE 67555 FREDI RAI OUTPATIEN 4 4 SARATH SARATH T VISIT 15 MINUTES OFFICE 89626 [facility] OUTPATIEN 4 4 T VISIT 15 MINUTES OFFICE 85464 [facility] OUTPATIEN 4 4 T VISIT 15 MINUTES OFFICE 72906 VIDYA DASILVA OUTPATIEN 4 4 COL COL T VISIT 10 MINUTES OFFICE 16865 [facility] OUTPATIEN 4 4 T VISIT 15 MINUTES [facility] - 4 4 [facility] OUTPATIEN T OFFICE 49321 [facility] OUTPATIEN 4 4 T VISIT 15 MINUTES OFFICE 81429 [facility] SOLIZ OUTPATIEN 4 4 NAZANIN NAZANIN T NEW 30 MINUTES OFFICE 66606 [facility] OUTPATIEN 4 4 T VISIT 15 MINUTES OFFICE 16166 [facility] OUTPATIEN 4 4 T VISIT 15 MINUTES OFFICE 49930 SWAPNA BARCENAS CONSULTAT 4 4 BRIANNA REED ION NEW/ESTAB PATIENT 80 MIN OFFICE 98845 [facility] OUTPATIEN 4 4 T NEW 45 MINUTES OFFICE 54459 VIDYA DASILVA OUTPATIEN 4 4 COL COL T NEW 20 MINUTES OFFICE 42873 FREDI RAI OUTPATIEN 4 4 SARATH SARATH T VISIT 15 MINUTES OFFICE 76086 FREDI RAI OUTPATIEN 4 4 SARATH SARATH T VISIT 15 MINUTES
--- OUTSIDE RECORDS SUMMARY | 2017-06-09 22:48 | External Medical Summary Rpt ---
Author Author [facility], [employer] Address Unknown Phone Unavailable Results Basic metabolic panel in Blood Observa Value Referen Units Interpr Notes Date tion ce etation Range Urea 7 - 18 mg/dL Normal No Apr 29 nitrogen informati 2017 2:23 [Mass/vol on in PM ume] in source Serum or data Plasma Calcium 8.5 - mg/dL Normal No Apr 29 [Mass/vol 10.1 informati 2017 2:23 ume] in on in PM Serum or source Plasma data Chloride 98 - 107 mmoL/L Normal No Apr 29 [Moles/vo informati 2017 2:23 lume] in on in PM Serum or source Plasma data Carbon 21.0 - mmoL/L Normal No Apr 29 dioxide, 32.0 informati 2017 2:23 total on in PM [Moles/vo source lume] in data Serum or Plasma Creatinin 0.55 - mg/dL Normal No Apr 29 e 1.02 informati 2016 2:23 [Mass/vol on in PM ume] in source Serum or data Plasma Creatinin 50 - 200 ML/MIN Normal No Apr 29 e renal informati 2017 2:23 clearance on in PM source predicted data by Cockcroft -Gault formula Estimated 59- ML/MIN No REFERENCE Apr 29 informati RANGE: 2017 2:23 glomerula on in >60 PM r source ML/MIN/1. filtratio data 73 SQUARE n rate METERSIf (GF this patient is -A merican, then multiply theresult by 1.210. Glucose 74 - 106 mg/dL High No Apr 29 [Mass/vol informati 2017 2:23 ume] in on in PM Serum or source Plasma data Potassium 3.5 - 5.1 mmoL/L Normal No Apr 29 informati 2017 2:23 [Moles/vo on in PM lume] in source Serum or data Plasma Sodium 136 - 145 mmoL/L Normal No Apr 29 [Moles/vo informati 2017 2:23 lume] in on in PM Serum or source Plasma data CBC W Auto Differential panel in Blood Observa Value Referen Units Interpr Notes Date tion ce etation Range Basophils 0 - 0.2 K/MM3 Normal No Apr 29 inform2016 2:23 [#/volume on in PM ] in source Blood by data Automated count Basophils 0.1 - 2.0 % Normal No Apr 29 informati 2016 2:23 leukocyte on in PM s in source Blood by data Automated count Eosinophi 0.0 - 0.4 K/mm3 Normal No Apr 29 ls informati 2016 2:23 [#/volume on in PM ] in source Blood by data Automated count Eosinophi 0.1 - % Normal No Apr 29 ls/100 12.0 informati 2016 2:23 leukocyte on in PM s in source Blood by data Automated count Granulocy 1.8 - 7.8 K/mm3 Normal No Apr 29 paty informati 2016 2:23 [#/volume on in PM ] in source Blood by data Automated count Granulocy 37.0 - % High No Apr 29 paty/100 80.0 informati 2016 2:23 leukocyte on in PM s in source Blood by data Automated count Hematocri 37.0 - % Normal No Apr 29 t [Volume 47.0 informati 2016 2:23 on in PM Fraction] source of Blood data Hemoglobi 12.2 - g/dL No Apr 29 n 16.2 informati informati 2016 2:23 [Mass/vol on in on in PM ume] in source source Blood data data Lymphocyt 0.7 - 4.5 K/mm3 Normal No Apr 29 es informati 2016 2:23 [#/volume on in PM ] in source Unspecifi data ed specimen by Automated count Lymphocyt 10 - 50.0 % Normal No Apr 29 es informati 2016 2:23 [#/volume on in PM ] in source Unspecifi data ed specimen by Automated count Erythrocy 27 - 31.2 pg Normal No Apr 29 te mean informati 2016 2:23 corpuscul on in PM ar source hemoglobi data n [Entitic mass] Erythrocy 31.8 - g/dl Normal No Apr 29 te mean 35.4 informati 2016 2:23 corpuscul on in PM ar source hemoglobi data n concentra tion [Mass/vol ume] by Automated count Erythrocy 82.2 - fl Normal No Apr 29 te mean 97.8 informati 2016 2:23 corpuscul on in PM ar volume source [Entitic data volume] by Automated count Monocytes 0.1 - 1.0 K/mm3 Normal No Apr 29 informati 2017 2:23 [#/volume on in PM ] in source Blood by data Automated count Monocytes 1.7 - 9.3 % Normal No Apr 29 /100 informati 2017 2:23 leukocyte on in PM s in source Blood by data Automated count Platelet 7.4 - fl Low No Apr 29 mean 10.4 informati 2017 2:23 volume on in PM [Entitic source volume] data in Blood by Automated count Platelets 142 - 424 K/mm3 Normal No Apr 29 informati 2017 2:23 [#/volume on in PM ] in source Blood data Erythrocy 4.2 - 5.4 M/mm3 Normal No Apr 29 paty informati 2017 2:23 [#/volume on in PM ] in source Amniotic data fluid Erythrocy 11.5 - % Normal No Apr 29 te 17.5 informati 2016 2:23 distribut on in PM ion width source [Entitic data volume] by Automated count Leukocyte 4.8 - K/MM3 Normal No Apr 29 s 10.8 informati 2016 2:23 [#/volume on in PM ] in source Blood data Cobalamin (Vitamin B12) [Mass/volume] in Serum Observa Value Referen Units Interpr Notes Date tion ce etation Range Cobalamin 211 - 946 pg/mL No Performed Apr 19 (Vitamin informati at: CB 2017 4:17 B12) on in - [facility] PM [Mass/vol source ume] in data [place] [address] Serum [address] [place], [place] [id number] [employer]: Rex Nova PhD, Phone: [phone] Folate [Mass/volume] in Serum or Plasma Observa Value Referen Units Interpr Notes Date tion ce etation Range Folate >3.0 ng/mL No A serum Apr 19 [Mass/vol informati folate 2017 4:17 ume] in on in concentra PM Serum or source tion of Plasma data less than 3.1 ng/mL isconside red to represent clinical deficienc y. Comprehensive metabolic 2000 panel in Serum or Plasma Observa Value Referen Units Interpr Notes Date tion ce etation Range Albumin/G 1.1 - 1.8 No Normal No Apr 19 lobulin informati informati 2016 4:17 [Mass on in on in PM ratio] in source source Serum or data data Plasma Albumin 3.4 - 5.0 gm/dL Normal No Apr 19 [Mass/vol informati 2016 4:17 ume] in on in PM Serum or source Plasma data Alkaline 46 - 116 U/L Normal No Apr 19 phosphata informati 2016 4:17 se on in PM [Enzymati source c data activity/ volume] in Serum or Plasma Bilirubin 0.2 - 1.0 mg/dL Normal No Apr 19 .total informati 2016 4:17 [Mass/vol on in PM ume] in source Serum or data Plasma Urea 7 - 18 mg/dL Normal No Apr 19 nitrogen informati 2016 4:17 [Mass/vol on in PM ume] in source Serum or data Plasma Calcium 8.5 - mg/dL Normal No Apr 19 [Mass/vol 10.1 informati 2016 4:17 ume] in on in PM Serum or source Plasma data Chloride 98 - 107 mmoL/L Normal No Apr 19 [Moles/vo informati 2016 4:17 lume] in on in PM Serum or source Plasma data Carbon 21.0 - mmoL/L Normal No Apr 19 dioxide, 32.0 informati 2016 4:17 total on in PM [Moles/vo source lume] in data Serum or Plasma Creatinin 0.55 - mg/dL Normal No Apr 19 e 1.02 informati 2016 4:17 [Mass/vol on in PM ume] in source Serum or data Plasma Estimated 59- ML/MIN No REFERENCE Apr 19 informati RANGE: 2017 4:17 glomerula on in >60 PM r source ML/MIN/1. filtratio data 73 SQUARE n rate METERSIf (GF this patient is -A merican, then multiply theresult by 1.210. Globulin 1.3 - 3.2 gm/dL Normal No Apr 19 [Mass/vol informati 2016 4:17 ume] in on in PM Serum source data Glucose 74 - 106 mg/dL High No Apr 19 [Mass/vol informati 2017 4:17 ume] in on in PM Serum or source Plasma data Potassium 3.5 - 5.1 mmoL/L Normal No Apr 19 informati 2016 4:17 [Moles/vo on in PM lume] in source Serum or data Plasma Sodium 136 - 145 mmoL/L Low No Apr 19 [Moles/vo 2016 4:17 lume] in on in PM Serum or source Plasma data Aspartate 15 - 37 U/L Normal No Apr 19 inform2016 4:17 aminotran on in PM sferase source [Enzymati data c activity/ volume] in Serum or Plasma Alanine 12 - 78 U/L Normal No Apr 19 aminotran 2016 4:17 sferase on in PM [Enzymati source c data activity/ volume] in Serum or Plasma Protein 6.4 - 8.2 gm/dL Normal No Apr 19 [Mass/vol informati 2016 4:17 ume] in on in PM Serum or source Plasma data CBC W Auto Differential panel in Blood Observa Value Referen Units Interpr Notes Date tion ce etation Range Basophils 0 - 0.2 K/MM3 Normal No Apr 192016 4:17 [#/volume on in PM ] in source Blood by data Automated count Basophils 0.1 - 2.0 % Normal No Apr 19 /2016 4:17 leukocyte on in PM s in source Blood by data Automated count Eosinophi 0.0 - 0.4 K/mm3 Normal No Apr 19 ls 2016 4:17 [#/volume on in PM ] in source Blood by data Automated count Eosinophi 0.1 - % Normal No Apr 19 ls/100 12.0 informati 2016 4:17 leukocyte on in PM s in source Blood by data Automated count Granulocy 1.8 - 7.8 K/mm3 Normal No Apr 19 paty ati 2016 4:17 [#/volume on in PM ] in source Blood by data Automated count Granulocy 37.0 - % Normal No Apr 19 paty/100 80.0 ati 2016 4:17 leukocyte on in PM s in source Blood by data Automated count Hematocri 37.0 - % Low No Apr 19 t [Volume 47.0 informati 2016 4:17 on in PM Fraction] source of Blood data Hemoglobi 12.2 - g/dL Normal No Apr 19 n 16.2 ati 2016 4:17 [Mass/vol on in PM ume] in source Blood data Lymphocyt 0.7 - 4.5 K/mm3 Normal No Apr 19 es 2016 4:17 [#/volume on in PM ] in source Unspecifi data ed specimen by Automated count Lymphocyt 10 - 50.0 % Normal No Apr 19 es ati 2016 4:17 [#/volume on in PM ] in source Unspecifi data ed specimen by Automated count Erythrocy 27 - 31.2 pg Normal No Apr 19 te mean inform2016 4:17 corpuscul on in PM ar source hemoglobi data n [Entitic mass] Erythrocy 31.8 - g/dl Normal No Apr 19 te mean 35.4 informati 2016 4:17 corpuscul on in PM ar source hemoglobi data n concentra tion [Mass/vol ume] by Automated count Erythrocy 82.2 - fl Normal No Apr 19 te mean 97.8 informati 2016 4:17 corpuscul on in PM ar volume source [Entitic data volume] by Automated count Monocytes 0.1 - 1.0 K/mm3 Normal No Apr 192016 4:17 [#/volume on in PM ] in source Blood by data Automated count Monocytes 1.7 - 9.3 % Normal No Apr 19 /100 informati 2016 4:17 leukocyte on in PM s in source Blood by data Automated count Platelet 7.4 - fl Low No Apr 19 mean 10.4 informati 2016 4:17 volume on in PM [Entitic source volume] data in Blood by Automated count Platelets 142 - 424 K/mm3 Normal No Apr 192016 4:17 [#/volume on in PM ] in source Blood data Erythrocy 4.2 - 5.4 M/mm3 Low No Apr 19 paty informati 2016 4:17 [#/volume on in PM ] in source Amniotic data fluid Erythrocy 11.5 - % Normal No Apr 19 te 17.5 informati 2016 4:17 distribut on in PM ion width source [Entitic data volume] by Automated count Leukocyte 4.8 - K/MM3 High No Apr 19 s 10.8 informati 2016 4:17 [#/volume on in PM ] in source Blood data Thyroxine (T4) free [Mass/volume] in Serum or Plasma Observa Value Referen Units Interpr Notes Date tion ce etation Range Thyroxine 0.76 - ng/dL Normal No Apr 19 (T4) 1.46 informati 2016 4:16 free on in PM [Mass/vol source ume] in data Serum or Plasma Thyrotropin [Units/volume] in Serum or Plasma Observa Value Referen Units Interpr Notes Date tion ce etation Range Thyrotrop 0.358 - uIU/ml No No Apr 19 in 3.740 informati informati 2017 4:16 [Units/vo on in on in PM lume] in source source Serum or data data Plasma Hemoglobin A1c in Blood Observa Value Referen Units Interpr Notes Date tion ce etation Range Hemoglo 6.0 0.0 - % Normal < 6% Apr 19 bin A1c 7.0 NON-SHARDA 2017 in [facility] 4:16 PM Blood LEVEL< 7% CONTROL LED DIABETI C LEVEL> 8% POORLY CONTROL LED DIABETI C LEVEL
--- OUTSIDE RECORDS SUMMARY | 2017-06-09 22:48 | External Medical Summary Rpt | CCD ---
Demographics Preferred Language Swazi Marital Status Unknown [employer] Affiliation Unknown Race Unknown Ethnic Group Unknown Author Author , JASS REGAN Address Unknown Phone Immunization Unable to retrieve immunization data due to connection failure with Immunization Registry. Please try again later.
--- OUTSIDE RECORDS SUMMARY | 2017-06-09 22:48 | External Medical Summary Rpt | CCD ---
Author Author , JASS Organization JASS Address Unknown Phone [email or web address] Care Team Providers Care Hopper Feeder Name Role Phone FREDI SARATH, FREDI Unavailable Unavailable SARATH FREDI SARATH, ARNOLD Unavailable Unavailable SARATH VIDYA COL, Unavailable Unavailable VIDYA COL BOLIEK NAZANIN, BOLIEK Unavailable Unavailable NAZANIN SOLIZ NAZANIN, SOLIZ Unavailable Unavailable NAZANIN SOLIZ NAZANIN, SOLIZ Unavailable Unavailable NAZANIN BURBERRY JEOVANNY, Unavailable Unavailable BURBERRY JEOVANNY [facility] Unavailable Unavailable AND [facility], [facility] MORTON TIF, MORTON Unavailable [...] 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 AT [facility], [facility] AT [facility] ROCIO BOBO, ROCIO BOBO Unavailable Unavailable SWAPNA BRIANNA, Unavailable Unavailable SWAPNA [...] Unavailable Unavailable E[facility], [facility], Unavailable Unavailable [facility] Unavailable Unavailable [facility] JAKE BRIANNA, JAKE BRIANNA Unavailable Unavailable JAKE BRIANNA, JAKE BRIANNA Unavailable Unavailable DANIEL CAGLE Unavailable Unavailable DANIEL TOM Unavailable Unavailable JACKSON Purpose Continuity of Care Document - 09-07-2013 through 2016 Problems Code Diagnosis DOS Provider Status 25811 SPINAL 12-27-2014 [facility] STENOSIS UNSPEC REGION OTH THAN CERVICAL 7245 UNSPECIFIED 12-27-2014 [facility] BACKACHE 66911 OBSTRUCTIVE 11-26-2014 [facility] APNEA MEDICAL [...] LUMBAR 11-15-2014 SELENE DEVINE SPRAIN AND STRAIN 13838 DEGEN 10-10-2014 [facility]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 7244 THORACIC/RAMANA 10-10-2014 [facility] MBOSACRAL H SLEEP AND NEURITIS/RA REHA DICULITIS UNSPEC 70653 PAIN IN 07-30-2014 [facility] JOINT, [facility] LOWER LEG INC V571 OTHER 07-30-2014 [facility] PHYSICAL [facility] THERAPY INC 4019 UNSPECIFIED 06-01-2014 [facility]ENTIAL [facility] HYPERTENSIO AT CENT N 4148 OTHER SPEC 06-01-2014 [facility] FORMS CARDIOLOGY CHRONIC AT CENT ISCHEMIC HEART DISEASE 7213 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 JESSICA FARMER SPONDYLOSIS [facility] WITHOUT MYELOPATHY 2724 OTHER AND 01-27-2014 [facility] UNSPECIFIED [facility] INC HYPERLIPIDE GIBRAN V5869 LONG-TERM 01-27-2014 [facility] (CURRENT) [facility] USE OF INC OTHER MEDICATIONS 4778 ALLERGIC 01-25-2014 SW[facility] RHINITIS BRIANNA DUE TO OTHER ALLERGEN 74733 CORONARY 01-19-2014 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 V7651 SPECIAL 01-19-2014 JAKE BRIANNA SCREENING FOR MALIGNANT NEOPLASMS COLON 4011 ESSENTIAL 01-15-2014 [facility] HYPERTENSIO CARDIOLOGY N, BENIGN AT CENT 37736 PES 01-02-2014 DANIEL JACKSON ANSERINUS TENDINITIS OR BURSITIS 84914 OTHER 01-01-2014 [facility] CHRONIC BRIANNA ALLERGIC CONJUNCTIVI TIS 4770 ALLERGIC 01-01-2014 [facility] RHINITIS BRIANNA DUE TO POLLEN 03251 EXTRINSIC 01-01-2014 SWAP[facility] ASTHMA, BRIANNA UNSPECIFIED 3384 CHRONIC 12-29-2013 FREDI CLEMENS PAIN SYNDROME 78082 OSTEOARTHRO 12-29-2013 FREDI CLEMENS S INVLV MX SITES BUT NOT SPEC GEN V7612 OTHER 11-15-2013 [facility] MAMMOGRAM 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 39614 DEGEN 10-24-2013 MART[facility]Z NAZANIN THORACIC/TH ORACOLUMBAR INTERVERTEB RAL DISC 4772 ALLERGIC 10-03-2013 [facility] RHINITIS BRIANNA DUE TO ANIMAL HAIR AND DANDER 71951 ASTHMA, 10-03-2013 [facility] UNSPECIFIED EQUIPMENT , INC UNSPECIFIED STATUS V727 DIAGNOSTIC 10-03-2013 SW[facility] SKIN AND BRIANNA SENSITIZATI ON TESTS 3674 PRESBYOPIA 09-29-2013 SCIFRES ANG 09038 ESOPHAGEAL 09-14-2013 FREDI CLEMENS REFLUX 27648 UNS 09-14-2013 FREDI CLEMENS GASTRITIS&G ASTRODUODIT IS [...] ARWAY PRESS DEVICE EA FILTER A7038 PUMA DORADORELL DISPBL 5 HOME HOME USED MEDICAL MEDICAL W/POS EQUIPME EQUIPME ARWAY PRESSURE DEVICE TUBING A7037 PU[facility] BARTHOLOMEW USED WITH 5 HOME HOME POSITIVE MEDICAL MEDICAL AIRWAY EQUIPME EQUIPME PRESSURE DEVICE CHIROPRAC 35707 SELENE MORTON TIC 5 TIF TIF MANIPULAT TOR TX SPINAL 3-4 REGIONS CHIROPRAC 89280 SELENE MORTON TIC 5 TIF TIF MANIPLTV TX EXTRASPIN AL 1/> REGION CHIROPRAC 44196 SELENE MORTON TIC 5 TIF TIF MANIPLTV TX EXTRASPIN AL 1/> REGION CHIROPRAC 80357 SELENE MORTON TIC 5 TIF TIF MANIPULAT [...] EQUIPME EQUIPME W/POS ARWAY PRESS DEVICE POLYSOM [address] [facility] [address] ASIM 6/>YRS 5 EAST EAST SLEEP W/CPAP 4/> ADDL BEE ATTND LUMB L0627 PU[facility] PUMA ORTHOSIS 5 HOME HOME SAGIT MEDICAL MEDICAL CNTRL EQUIPME EQUIPME RIGID A&P PANEL PREFAB TENS E0730 [facility] INC EMPI INC DEVICE 5 4/MORE LEADS MULTI NERVE STIMULATI ON CHIROPRAC 42049 SELENE MORTON TIC 5 TIF TIF MANIPULAT TOR TX SPINAL 3-4 REGIONS CHIROPRAC 27425 SELENE MORTON TIC 5 TIF TIF MANIPLTV TX EXTRASPIN AL 1/> REGION FILTER A7038 PUMA PUMA DISPBL 4 HOME HOME USED MEDICAL MEDICAL W/POS EQUIPME EQUIPME ARWAY PRESSURE DEVICE TUBING A7037 PUMA DORADORELL USED WITH 4 HOME HOME POSITIVE MEDICAL MEDICAL AIRWAY EQUIPME EQUIPME PRESSURE DEVICE FACE MASK A7031 PUMA PUMA 4 HOME HOME INTERFACE MEDICAL MEDICAL REPLCMT EQUIPME EQUIPME FULL FACE MASK EA CHIROPRAC 15730 SELENE MORTON TIC 4 TIF TIF MANIPULAT TOR TX SPINAL 3-4 REGIONS CHIROPRAC 91114 SELENE MORTON TIC 4 TIF TIF MANIPLTV TX EXTRASPIN AL 1/> REGION TENS E0730 EMPI INC EMPI INC DEVICE 4 4/MORE LEADS MULTI NERVE STIMULATI ON THERAPEUT 51880 ANATOLIY COPE IC PX 1/> 4 MEM [...] MEDICAL W/POS EQUIPME EQUIPME ARWAY PRESSURE DEVICE APPL 96531 ANATOLIY COPE MODALITY 4 [facility] 1/> AREAS INC INC ELEC STIMJ EA 15 MIN THERAPEUT 46002 ANATOLIY ANATOLIY IC PX 1/> 4 [facility] AREAS INC INC EACH 15 MIN EXERCISES CHIROPRAC 19396 SELENE MORTON TIC 4 TIF TIF MANIPLTV TX EXTRASPIN AL 1/> REGION CHIROPRAC 91262 SELENE MORTON TIC 4 TIF TIF MANIPULAT TOR TX SPINAL 3-4 REGIONS THERAPEUT 53676 ANATOLIY COPE IC PX 1/> 4 [facility] AREAS INC INC EACH 15 MIN EXERCISES THERAPEUT 02636 ANATOLIY ANATOLIY IC PX 1/> 4 [facility] AREAS INC INC EACH 15 MIN EXERCISES CHIROPRAC 94117 SELENE MORTON TIC 4 TIF TIF MANIPULAT TOR TX SPINAL 3-4 REGIONS CHIROPRAC 10779 SELENE MORTON TIC 4 TIF TIF MANIPLTV TX EXTRASPIN AL 1/> REGION CHIROPRAC 38133 SELENE MORTON TIC 4 TIF TIF MANIPLTV TX EXTRASPIN AL 1/> REGION CHIROPRAC 35697 SELENE MORTON TIC 4 TIF TIF MANIPULAT TOR TX SPINAL 3-4 REGIONS APPL 56815 SELENE MORTON MODALITY 4 TIF TIF 1/> AREAS ELEC STIMJ UNATTENDE D APPL 28518 SELENE MORTON MODALITY 4 TIF TIF 1/> AREAS ELEC STIMJ UNATTENDE D CHIROPRAC 83600 SELENE MORTON TIC 4 TIF TIF MANIPLTV TX EXTRASPIN AL 1/> REGION CHIROPRAC 59487 SELENE MORTON TIC 4 TIF TIF MANIPULAT TOR TX SPINAL 3-4 REGIONS CHIROPRAC 95989 SELENE MORTON TIC 4 TIF TIF MANIPLTV TX EXTRASPIN AL 1/> REGION APPL 77307 SELENE MORTON MODALITY 4 TIF TIF 1/> AREAS ELEC STIMJ UNATTENDE D CHIROPRAC 55300 SELENE MORTON TIC 4 TIF TIF MANIPULAT TOR TX SPINAL 3-4 REGIONS CHIROPRAC 78015 SELENE MORTON TIC 4 TIF TIF MANIPULAT TOR TX SPINAL 3-4 REGIONS APPL 31791 SELENE MORTON MODALITY 4 TIF TIF 1/> AREAS ELEC STIMJ UNATTENDE D CHIROPRAC 59229 SELENE SELENE TIC 4 TIF TIF MANIPLTV TX EXTRASPIN AL 1/> REGION RINGERS J7120 JESSICA FARMER LACTATE 4 E. FARMER CRISTY INFUSION MDPLC UP TO 1000 CC RINGERS J7120 JESSICA FARMER LACTATE 4 E. FARMER CRISTY INFUSION MDPLC UP TO 1000 CC LIPID 29154 ANATOLIY COPE PANEL 4 [facility] INC INC HEPATIC 93279 ANATOLIY COPE FUNCTION 4 [facility] PANEL INC INC PROF SVCS 29436 SWAPNA SWAPNA ALLG 4 BRIANNA BRIANNA IMMNTX X W/PRV ALLGIC XTRCS NJXS HUMDIFIR E0562 PUMA DORADORELL HEATED 4 HOME HOME USED MEDICAL MEDICAL W/POS EQUIPME EQUIPME ARWAY PRESSURE DEVICE PRESSURIZ 20637 [facility] ED/NONPRE [address] [place] [address] SSURIZED INHALATIO N TREATMENT COLOREC G[address] SCR; COLNSCPY NOT MEET HI RISK COLONOSCO 21337 JAKE BRIANNA JAKE BRIANNA PY FLX DX 4 W/COLLJ SPEC WHEN PFRMD ANES 75828 BURBERRY BURBERRY LOWER 4 JEOVANNY JEOVANNY INTESTINE ENDOSCOPY DISTAL DUODENUM INJECTION J[address] LIDOCAINE HCL INTRAVENO US INFUS 10 MG THERAPEUT 35867 ANATOLIY COPE IC PX 1/> 4 [facility] AREAS INC INC EACH 15 MIN EXERCISES APPLICATI 02004 ANATOLIY COPE ON 4 [facility] MODALITY INC INC 1/> AREAS HOT/COLD PACKS APPL 22162 ANATOLIY COPE MODALITY 4 [facility] 1/> AREAS INC INC ULTRASOUN D EA 15 MIN APPL 40793 ANATOLIY COPE MODALITY 4 [facility] 1/> AREAS INC INC ELEC STIMJ UNATTENDE D PHYSICAL 94481 ANATOLIY HENDERSON THERAPY 4 [facility]OS[facility] ELISHA EVALUATIO INC N PREPJ& 25728 SWAPNA LARSENHBURN ALLERGEN 4 BRIANNA BRIANNA IMMUNOTHE 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 A7035 PUMA BARTHOLOMEW USED 4 HOME HOME W/POSITIV MEDICAL MEDICAL E AIRWAY EQUIPME EQUIPME PRESSURE DEVICE TUBING A7037 PUMA BARTHOLOMEW USED [...] EQUIPME EQUIPME ARWAY PRESS DEVICE EA RADIOLOGI 84352 DANIEL SANCHEZ C EXAM 4 JACKSON JACKSON KNEE COMPLETE 4/MORE VIEWS SPMTRY 55838 SWAPNA SWAPNA W/VC 4 BRIANNA BRIANNA EXPIRATOR Y CELESTE W/WO MXML VOL VNTJ MANUAL 86606 VIDYA DASILVA THERAPY 4 COL COL TQS 1/> REGIONS EACH 15 MINUTES CHIROPRAC 20181 VIDYA DASILVA TIC 4 COL COL MANIPULAT TOR TX SPINAL 3-4 REGIONS CHIROPRAC 16678 VIDYA DASILVA TIC 4 COL COL MANIPULAT TOR TX SPINAL 3-4 REGIONS MANUAL 72898 VIDYA COTTERON THERAPY 4 COL COL TQS 1/> REGIONS EACH 15 MINUTES APPL 09295 VIDYA COTTERON MODALITY 4 COL COL 1/> AREAS ELEC STIMJ UNATTENDE D APPL 44839 VIDYA COTTERON MODALITY 4 COL COL 1/> AREAS TRACTION MECHANICA L COMPUTER- [address] DETECTION SCREENING MAMMOGRAP HY SCREENING G0202 [address] MAMMOGRAP HY RICHY INCL CAD WHEN PERFORMD APPL 44143 VIDYA COTTERON MODALITY 4 COL COL 1/> AREAS TRACTION MECHANICA L APPL 95973 VIDYA COTTERON MODALITY 4 COL COL 1/> AREAS ELEC STIMJ UNATTENDE D MANUAL 03624 IVDYA COTTERON THERAPY 4 COL COL TQS 1/> REGIONS EACH 15 MINUTES CHIROPRAC 99630 VIDYA DASILVA TIC 4 COL COL MANIPULAT TOR TX SPINAL 3-4 REGIONS CHIROPRAC 82960 VIDYA COTTERON TIC 4 COL COL MANIPULAT TOR TX SPINAL 3-4 REGIONS MANUAL 27824 VIDYA COTTERON THERAPY 4 COL COL TQS 1/> REGIONS EACH 15 MINUTES APPL 87803 VIDYA COTTERON MODALITY 4 COL COL 1/> AREAS ELEC STIMJ UNATTENDE D APPL 31442 VIDYA COTTERON MODALITY 4 COL COL 1/> AREAS TRACTION MECHANICA L APPL 09238 VIDYA COTTERON MODALITY 4 COL COL 1/> AREAS TRACTION MECHANICA L APPL 83325 VIDYA COTTERON MODALITY 4 COL COL 1/> AREAS ELEC STIMJ UNATTENDE D MANUAL 95850 VIDYA HOPKINSESON THERAPY 4 COL COL TQS 1/> REGIONS EACH 15 MINUTES CHIROPRAC 58278 VIDYA DASILVA TIC 4 COL COL MANIPULAT TOR TX SPINAL 3-4 REGIONS DRUG SCR G0434 ORCIO HAM ROCIO HAM NOT 4 CHROMATOG RAPHIC; ANY NUMBER PT ENC DEMO&/HYUN 54137 SWAPNA SWAPNA L OF PT 4 BRIANNA BRIANNA UTILIZ AERSL GEN/NEB/I NHLR/IP BRNCDILAT 05277 SWAPNA SWAPNA RSPSE 4 BRIANNA BRIANNA SPMTRY PRE&POST- BRNCDILAT ADMN PRESSURIZ 89214 SWAPNA SWAPNA ED/NONPRE 4 BRIANNA BRIANNA SSURIZED INHALATIO N TREATMENT PERCUTANE 15321 SWAPNA SWAPNA OUS TESTS 4 BRIANNA BRIANNA W/ALLERGE ANCA EXTRACTS INTRACUTA 13351 SWAPNA SWAPNA NEOUS 4 BRIANNA BRIANNA TESTS W/ALLERGE ANCA EXTRACTS TUBING A7037 SWAPNA SWAPNA USED WITH 4 BRIANNA BRIANNA POSITIVE AIRWAY PRESSURE DEVICE SPACR A4627 MT MED MT MED BAG/RESRV 4 EQUIPMENT EQUIPMENT OR W/WO INC INC MASK W/METRD DOSE INHAL DETERMINA 79600 SCIFRES SCIFRES TION 4 ANG ANG REFRACTIV E STATE OPHTH 51343 SCIFRES SCIFRES MEDICAL 4 ANG ANG XM&EVAL COMPRE NEW PT 1/> VST DRUG SCR G0434 ROCIO HAM ROCIO HAM NOT 4 CHROMATOG RAPHIC; ANY NUMBER PT ENC APPLICATI 25254 VIDYA DASILVA ON 4 COL COL MODALITY 1/> AREAS HOT/COLD PACKS APPL 04061 VIDYA DASILVA MODALITY 4 COL COL 1/> AREAS TRACTION MECHANICA L CHIROPRAC 97005 VIDYA DASILVA TIC 4 COL COL MANIPULAT TOR TX SPINAL 3-4 REGIONS MANUAL 62354 VIDYA DASILVA THERAPY 4 COL COL TQS 1/> REGIONS EACH 15 MINUTES APPL 78375 VIDYA DASILVA MODALITY 4 COL COL 1/> AREAS ELEC STIMJ UNATTENDE D TUBING A7037 PUMA BARTHOLOMEW USED WITH 4 HOME HOME POSITIVE MEDICAL MEDICAL AIRWAY EQUIPME EQUIPME PRESSURE DEVICE FILTER A7038 PUMA DORADORELL DISPBL 4 HOME HOME USED MEDICAL MEDICAL W/POS EQUIPME EQUIPME ARWAY PRESSURE DEVICE FILTER A7039 PUMA BARTHOLOMEW NON 4 HOME HOME DISPBL MEDICAL MEDICAL USED EQUIPME EQUIPME W/POS ARWAY PRESS DEVICE NASL A7034 PUMA BARTHOLOMEW INTRFCE 4 HOME HOME POS ARWAY MEDICAL MEDICAL PRSS EQUIPME EQUIPME DEVC W/WO HEAD STRAP HEADGEAR A7035 PUMA BARTHOLOMEW USED 4 HOME HOME W/POSITIV MEDICAL MEDICAL E AIRWAY EQUIPME EQUIPME PRESSURE DEVICE Encounters Encounter Start End Date Code Location Performer Type Date OFFICE 88508 SELENE MORTON OUTPATIEN 5 5 TIF [facility] T VISIT 10 MINUTES OFFICE 03104 [facility] PATHAK II OUTPATIEN [address] [facility] SLEEP JUSTIN T VISIT AND REHA 15 MINUTES HOSPITAL [facility] - 5 5 [facility]ATOLI[facility] - 4 5 [facility] - 4 4 [facility] CARDIOLOG 15 Y AT CENT MINUTES OFFICE 83433 SELENE SELENE OUTPATIEN 4 4 TIF TIF T NEW 30 MINUTES HOSPITAL [facility] - 4 4 [facility] 4 4 [facility] 15545 WADDY BOLIEK OUTPATIEN 4 4 NAZANIN VISIT CARDIOLOG 15 Y AT CENT MINUTES HOSPITAL ANATOLIY - 4 4 [facility] OUTPATIEN [facility] OFFICE 71030 DANIEL SANCHEZ CONSULTAT 4 4 JACKSON RODRIGUEZ NEW/ESTAB PATIENT 60 MIN OFFICE 62878 SWAPNA BARCENAS OUTPATIEN 4 4 BRIANNA REED T VISIT 25 MINUTES OFFICE 78659 FREDI RAI OUTPATIEN 4 4 SARATH SARATH T VISIT 15 MINUTES OFFICE 19929 [facility]GLA [facility] OUTPATIEN 4 4 T VISIT 15 MINUTES OFFICE 68261 VIDYA DASILVA OUTPATIEN 4 4 COL COL T VISIT 10 MINUTES OFFICE 09567 ROCIO JERAMIE [facility] OUTPATIEN 4 4 T VISIT 15 MINUTES OFFICE 47587 ROCIOREGLA BOBO [facility] OUTPATIEN 4 4 T VISIT 15 MINUTES [facility] - 4 4 EAST OUTPATIEN T OFFICE 50956 ROCIOREGLA PHILLIPSIK [facility]AM OUTPATIEN 4 4 T VISIT 15 MINUTES OFFICE 33085 MARTÍNEZ SOLIZ OUTPATIEN 4 4 NAZANIN NAZANIN T NEW 30 MINUTES OFFICE 84957 ROCIO JERAMIE PHILLIPSIK HAM OUTPATIEN 4 4 T VISIT 15 MINUTES OFFICE 01825 ROCIO PHILLIPSIK HAM OUTPATIEN 4 4 T VISIT 15 MINUTES OFFICE 80460 SWAPNA BARCENAS CONSULTAT 4 4 BRIANNA BRIANNA ION NEW/ESTAB PATIENT 80 MIN OFFICE 28140 ROCIO JERAMIE PHILLIPSIK HAM OUTPATIEN 4 4 T NEW 45 MINUTES OFFICE 26774 VIDYA VIDYA OUTPATIEN 4 4 COL COL T NEW 20 MINUTES OFFICE 41814 ABDULKADIRRODRIGUE FREDI OUTPATIEN 4 4 SARATH SARATH T VISIT 15 MINUTES OFFICE 53455 FREDI RAI OUTPATIEN 4 4 SARATH SARATH T VISIT 15 MINUTES
--- OUTSIDE RECORDS SUMMARY | 2017-06-09 22:48 | External Medical Summary Rpt ---
[...] [facility] PM [Mass/vol source ume] in data [place] [address] [address] [place], [place] [id number] Back Seam Stitcher: Rex Nova PhD, Phone: [phone] Folate [Mass/volume] in Serum or Plasma [...]
--- OUTSIDE RECORDS SUMMARY | 2017-06-09 22:48 | External Medical Summary Rpt | CCD ---
Author Author , JASS Organization JASS Address Unknown Phone [email or web address] Team Providers Care Merchandising Representative Name Role Phone FREDI SARATH, FREDI Unavailable Unavailable SARATH FREDI SARATH, ARNOLD Unavailable Unavailable SARATH VIDYA COL, Unavailable Unavailable VIDYA COL BOLIEK NAZANIN, BOLIEK Unavailable Unavailable NAZANIN SOLIZ NAZANIN, SOLIZ Unavailable Unavailable NAZANIN SOLIZ NAZANIN, SOLIZ Unavailable Unavailable NAZANIN BURBERRY JEOVANNY, Unavailable Unavailable BURBERRY JEOVANNY [facility] Unavailable Unavailable AND [facility], [facility] MORTON TIF, MORTON Unavailable [...] 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 AT [facility], [facility] AT [facility] ROCIO BOBO, ROCIO BOBO Unavailable Unavailable SWAPNA [...] Unavailable Unavailable E[facility], [facility], Unavailable Unavailable [facility] Unavailable Unavailable [facility] JAKE BRIANNA, JAKE BRIANNA Unavailable Unavailable JAKE BRIANNA, JAKE BRIANNA Unavailable Unavailable DANIEL CAGLE Unavailable Unavailable DANIEL TOM Unavailable Unavailable JACKSON Purpose Continuity of Care Document - 09-07-2013 through 2016 Problems Code Diagnosis DOS Provider Status 93416 SPINAL 12-27-2014 [facility] STENOSIS UNSPEC REGION OTH THAN CERVICAL 7245 UNSPECIFIED 12-27-2014 [facility] BACKACHE 60466 OBSTRUCTIVE 11-26-2014 [facility]NEA [facility]ICAL [...] LUMBAR 11-15-2014 SELENE DEVINE SPRAIN AND STRAIN 16091 DEGEN 10-10-2014 [facility]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 7244 THORACIC/RAMANA 10-10-2014 [facility] MBOSACRAL H SLEEP AND NEURITIS/RA REHA DICULITIS UNSPEC 23503 PAIN IN 07-30-2014 [facility] JOINT, [facility] LOWER LEG INC V571 OTHER 07-30-2014 [facility] PHYSICAL [facility] THERAPY INC 4019 UNSPECIFIED 06-01-2014 [facility] HYPERTENSIO AT CENT N 4148 OTHER SPEC 06-01-2014 [place] [facility] CHRONIC AT CENT ISCHEMIC HEART DISEASE 7213 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 JESSICA FARMER SPONDYLOSIS [facility] WITHOUT MYELOPATHY 2724 OTHER AND 01-27-2014 [facility] UNSPECIFIED [facility] INC HYPERLIPIDE GIBRAN V5869 LONG-TERM 01-27-2014 [facility] (CURRENT) [facility] USE OF INC OTHER MEDICATIONS 4778 ALLERGIC 01-25-2014 [facility] RHINITIS BRIANNA DUE TO OTHER ALLERGEN 04119 CORONARY 01-19-2014 [facility] OSIS AFOGNAK CORONARY ARTERY 5368 DYSPEPSIA&O 01-19-2014 [facility] SPEC HOSPITAL DISORDERS FUNCTION STOMACH 90739 UNSPECIFIED 01-19-2014 [facility] ARTHROPATHY SITE UNSPECIFIED 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 UNSPEC V7651 SPECIAL 01-19-2014 JAKE BRIANNA SCREENING FOR MALIGNANT NEOPLASMS COLON 4011 ESSENTIAL 01-15-2014 [place] HYPERTENSIO [facility]ARDIOLOG[facility] N, BENIGN AT CENT 56543 PES 01-02-2014 DANIEL JACKSON ANSERINUS TENDINITIS OR BURSITIS 41261 OTHER 01-01-2014 [facility] CHRONIC BRIANNA ALLERGIC CONJUNCTIVI TIS 4770 ALLERGIC 01-01-2014 [facility] RHINITIS BRIANNA DUE TO POLLEN 58428 EXTRINSIC 01-01-2014 SW[facility] ASTHMA, BRIANNA UNSPECIFIED 3384 CHRONIC 12-29-2013 FREDI CLEMENS PAIN SYNDROME 47380 OSTEOARTHRO 12-29-2013 FREDI CLEMENS S INVLV MX SITES BUT NOT SPEC GEN V7612 OTHER 11-15-2013 [facility] MAMMOGRAM 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 08241 DEGEN 10-24-2013 MARTÍNEZ NAZANIN THORACIC/TH ORACOLUMBAR INTERVERTEB RAL DISC 4772 ALLERGIC 10-03-2013 [facility] RHINITIS BRIANNA DUE TO ANIMAL HAIR AND DANDER 31658 ASTHMA, 10-03-2013 [facility] UNSPECIFIED EQUIPMENT , INC UNSPECIFIED STATUS V727 DIAGNOSTIC 10-03-2013 [facility] SKIN AND BRIANNA SENSITIZATI ON TESTS 3674 PRESBYOPIA 09-29-2013 SCIFRES ANG 37092 ESOPHAGEAL 09-14-2013 FREDI CLEMENS REFLUX 79720 UNS 09-14-2013 FREDI CLEMENS GASTRITIS&G ASTRODUODIT IS W/O MENTION HEMORR 4619 ACUTE 09-07-2013 FREDI CLEMENS SINUSITIS, UNSPECIFIED 9953 ALLERGY 09-07-2013 FREDI CLEMNES UNSPECIFIED NOT ELSEWHERE CLASSIFIED Procedures Procedure DOS [...] MEDICAL AIRWAY EQUIPME EQUIPME PRESSURE DEVICE CHIROPRAC 05222 SELENE MORTON TIC 5 TIF TIF MANIPULAT TOR TX SPINAL 3-4 REGIONS CHIROPRAC 22778 SELENE MORTON TIC 5 TIF TIF MANIPLTV TX EXTRASPIN AL 1/> REGION CHIROPRAC 34908 SELENE MORTON TIC 5 TIF TIF MANIPLTV TX EXTRASPIN AL 1/> REGION CHIROPRAC 99520 SELENE MORTON TIC 5 TIF TIF MANIPULAT [...] EQUIPME EQUIPME W/POS ARWAY PRESS DEVICE POLYSOM [address] ASIM 6/>YRS 5 [facility] E[facility] SLEEP W/CPAP 4/> ADDL BEE ATTND LUMB L0627 [facility] ORTHOSIS 5 HOME HOME [facility] CNTRL EQUIPME EQUIPME RIGID A&P PANEL PREFAB TENS E0730 E[facility] INC EMPI INC DEVICE 5 4/MORE LEADS MULTI NERVE STIMULATI ON CHIROPRAC 05940 SELENE MORTON TIC 5 TIF TIF MANIPULAT TOR TX SPINAL 3-4 REGIONS CHIROPRAC 87529 SELENE MORTON TIC 5 TIF TIF MANIPLTV [...] EQUIPME EQUIPME FULL FACE MASK EA CHIROPRAC 53446 SELENE MORTON TIC 4 TIF TIF MANIPULAT TOR TX SPINAL 3-4 REGIONS CHIROPRAC 76398 SELENE MORTON TIC 4 TIF TIF MANIPLTV TX EXTRASPIN AL 1/> REGION TENS E0730 EMP[facility] INC EMPI INC DEVICE 4 4/MORE LEADS MULTI NERVE STIMULATI ON THERAPEUT 19126 ANATOLIY COPE IC PX 1/> 4 MEM [...] W/POS EQUIPME EQUIPME ARWAY PRESSURE DEVICE APPL 09964 ANATOLIY COPE MODALITY 4 [facility] 1/> AREAS INC INC ELEC STIMJ EA 15 MIN THERAPEUT 27946 ANATOLIY ANATOLIY IC PX 1/> 4 [facility] AREAS INC INC EACH 15 MIN EXERCISES CHIROPRAC 04007 SELENE MORTON TIC 4 TIF TIF MANIPLTV TX EXTRASPIN AL 1/> REGION CHIROPRAC 76282 SELENE MORTON TIC 4 TIF TIF MANIPULAT TOR TX SPINAL 3-4 REGIONS THERAPEUT 68423 ANATOLIY COPE IC PX 1/> 4 [facility] AREAS INC INC EACH 15 MIN EXERCISES THERAPEUT 33819 ANATOLIY ANATOLIY IC PX 1/> 4 [facility] AREAS INC INC EACH 15 MIN EXERCISES CHIROPRAC 99502 SELENE MORTON TIC 4 TIF TIF MANIPULAT TOR TX SPINAL 3-4 REGIONS CHIROPRAC 04644 SELENE MORTON TIC 4 TIF TIF MANIPLTV TX EXTRASPIN AL 1/> REGION CHIROPRAC 23223 SELENE MORTON TIC 4 TIF TIF MANIPLTV TX EXTRASPIN AL 1/> REGION CHIROPRAC 33623 SELENE MORTON TIC 4 TIF TIF MANIPULAT TOR TX SPINAL 3-4 REGIONS APPL 14102 SELENE MORTON MODALITY 4 TIF TIF 1/> AREAS ELEC STIMJ UNATTENDE D APPL 76089 SELENE MORTON MODALITY 4 TIF TIF 1/> AREAS ELEC STIMJ UNATTENDE D CHIROPRAC 70360 SELENE MORTON TIC 4 TIF TIF MANIPLTV TX EXTRASPIN AL 1/> REGION CHIROPRAC 84779 SELENE MORTON TIC 4 TIF TIF MANIPULAT TOR TX SPINAL 3-4 REGIONS CHIROPRAC 39927 SELENE MORTON TIC 4 TIF TIF MANIPLTV TX EXTRASPIN AL 1/> REGION APPL 69309 SELENE MORTON MODALITY 4 TIF TIF 1/> AREAS ELEC STIMJ UNATTENDE D CHIROPRAC 52873 SELENE MORTON TIC 4 TIF TIF MANIPULAT TOR TX SPINAL 3-4 REGIONS CHIROPRAC 52347 SELENE MORTON TIC 4 TIF TIF MANIPULAT TOR TX SPINAL 3-4 REGIONS APPL 94425 SELENE MORTON MODALITY 4 TIF TIF 1/> AREAS ELEC STIMJ UNATTENDE D CHIROPRAC 25255 SELENE SELENE TIC 4 TIF TIF MANIPLTV TX EXTRASPIN AL 1/> REGION RINGERS J7120 JESSICA FARMER LACTATE 4 E. FARMER CRISTY INFUSION MDPLC UP TO 1000 CC RINGERS J7120 JESSICA FARMER LACTATE 4 E. FARMER CRISTY INFUSION MDPLC UP TO 1000 CC LIPID 07207 ANATOLIY COPE PANEL 4 [facility] INC INC HEPATIC 14653 ANATOLIY COPE FUNCTION 4 [facility] PANEL INC INC PROF SVCS 08203 SWAPNA SWAPNA ALLG 4 BRIANNA BRIANNA IMMNTX X W/PRV ALLGIC XTRCS NJXS HUMDIFIR E0562 [facility] DORADORELL HEATED 4 HOME HOME USED MEDICAL MEDICAL W/POS EQUIPME EQUIPME ARWAY PRESSURE DEVICE PRESSURIZ 36552 [facility] ED/NONPRE [address] [place] [address] SSURIZED INHALATIO N TREATMENT COLOREC G[address] SCR; COLNSCPY NOT MEET HI RISK COLONOSCO 46582 JAKE BRIANNA JAKE BRIANNA PY FLX DX 4 W/COLLJ SPEC WHEN PFRMD ANES 70914 BURBERRY BURBERRY LOWER 4 JEOVANNY JEOVANNY INTESTINE ENDOSCOPY DISTAL DUODENUM INJECTION J[address] LIDOCAINE HCL INTRAVENO US INFUS 10 MG THERAPEUT 98414 ANATOLIY COPE IC PX 1/> 4 [facility] AREAS INC INC EACH 15 MIN EXERCISES APPLICATI 56028 ANATOLIY COPE ON 4 [facility] MODALITY INC INC 1/> AREAS HOT/COLD PACKS APPL 53264 ANATOLIY COPE MODALITY 4 [facility] 1/> AREAS INC INC ULTRASOUN D EA 15 MIN APPL 75196 ANATOLIY COPE MODALITY 4 [facility] 1/> AREAS INC INC ELEC STIMJ UNATTENDE D PHYSICAL 36929 ANATOLIY HENDERSON THERAPY 4 [facility] ELISHA EVALUATIO INC N PREPJ& 11269 SWAPNA LARSENHBURN ALLERGEN 4 BRIANNA BRIANNA IMMUNOTHE RAPY 1/TRAVELING SALES REPRESENTATIVE ANTIGEN HEADGEAR A7035 [facility] BARTHOLOMEW USED 4 [...] EQUIPME EQUIPME ARWAY PRESS DEVICE EA RADIOLOGI 01711 DANIEL SANCHEZ C EXAM 4 JACKSON JACKSON KNEE COMPLETE 4/MORE VIEWS SPMTRY 46852 SWAPNA SWAPNA W/VC 4 BRIANNA BRIANNA EXPIRATOR Y CELESTE W/WO MXML VOL VNTJ MANUAL 86858 VIDYA DASILVA THERAPY 4 COL COL TQS 1/> REGIONS EACH 15 MINUTES CHIROPRAC 85459 VIDYA DASILVA TIC 4 COL COL MANIPULAT TOR TX SPINAL 3-4 REGIONS CHIROPRAC 33172 VIDYA DASILVA TIC 4 COL COL MANIPULAT TOR TX SPINAL 3-4 REGIONS MANUAL 50079 VIDYA COTTERON THERAPY 4 COL COL TQS 1/> REGIONS EACH 15 MINUTES APPL 16980 VIDYA COTTERON MODALITY 4 COL COL 1/> AREAS ELEC STIMJ UNATTENDE D APPL 71493 VIDYA COTTERON MODALITY 4 COL COL 1/> AREAS TRACTION MECHANICA L COMPUTER- [address] DETECTION SCREENING MAMMOGRAP HY SCREENING G[address] MAMMOGRAP HY RICHY INCL CAD WHEN PERFORMD APPL 08847 VIDYA COTTERON MODALITY 4 COL COL 1/> AREAS TRACTION MECHANICA L APPL 80966 VIDYA COTTERON MODALITY 4 COL COL 1/> AREAS ELEC STIMJ UNATTENDE D MANUAL 10822 VIDYA COTTERON THERAPY 4 COL COL TQS 1/> REGIONS EACH 15 MINUTES CHIROPRAC 14427 VIDYA DASILVA TIC 4 COL COL MANIPULAT TOR TX SPINAL 3-4 REGIONS CHIROPRAC 46096 VIDYA COTTERON TIC 4 COL COL MANIPULAT TOR TX SPINAL 3-4 REGIONS MANUAL 47738 VIDYA COTTERON THERAPY 4 COL COL TQS 1/> REGIONS EACH 15 MINUTES APPL 33649 VIDYA COTTERON MODALITY 4 COL COL 1/> AREAS ELEC STIMJ UNATTENDE D APPL 15819 VIDYA COTTERON MODALITY 4 COL COL 1/> AREAS TRACTION MECHANICA L APPL 28180 VIDYA COTTERON MODALITY 4 COL COL 1/> AREAS TRACTION MECHANICA L APPL 33983 VIDYA COTTERON MODALITY 4 COL COL 1/> AREAS ELEC STIMJ UNATTENDE D MANUAL 83293 VIDYA HOPKINSESON THERAPY 4 COL COL TQS 1/> REGIONS EACH 15 MINUTES CHIROPRAC 78792 VIDYA DASILVA TIC 4 COL COL MANIPULAT TOR TX SPINAL 3-4 REGIONS DRUG SCR G0434 ROCIO HAM ROCIO HAM NOT 4 CHROMATOG RAPHIC; ANY NUMBER PT ENC DEMO&/HYUN 66649 SWAPNA SWAPNA L OF PT 4 BRIANNA BRIANNA UTILIZ AERSL GEN/NEB/I NHLR/IP BRNCDILAT 91238 SWAPNA SWAPNA RSPSE 4 BRIANNA BRIANNA SPMTRY PRE&POST- BRNCDILAT ADMN PRESSURIZ 79741 SWAPNA SWAPNA ED/NONPRE 4 BRIANNA BRIANNA SSURIZED INHALATIO N TREATMENT PERCUTANE 26648 SWAPNA SWAPNA OUS TESTS 4 BRIANNA BRIANNA W/ALLERGE ANCA EXTRACTS INTRACUTA 67962 SWAPNA SWAPNA NEOUS 4 BRIANNA BRIANNA TESTS W/ALLERGE ANCA EXTRACTS TUBING A7037 SWAPNA SWAPNA USED WITH 4 BRIANNA BRIANNA POSITIVE AIRWAY PRESSURE DEVICE SPACR A4627 MT MED MT MED BAG/RESRV 4 EQUIPMENT EQUIPMENT OR W/WO INC INC MASK W/METRD DOSE INHAL DETERMINA 47540 SCIFRES SCIFRES TION 4 ANG ANG REFRACTIV E STATE OPHTH 54913 SCIFRES SCIFRES MEDICAL 4 ANG ANG XM&EVAL COMPRE NEW PT 1/> VST DRUG SCR G0434 ROCIO HAM ROCIO HAM NOT 4 CHROMATOG RAPHIC; ANY NUMBER PT ENC APPLICATI 10960 VIDYA DASILVA ON 4 COL COL MODALITY 1/> AREAS HOT/COLD PACKS APPL 06899 VIDYA DASILVA MODALITY 4 COL COL 1/> AREAS TRACTION MECHANICA L CHIROPRAC 33993 VIDYA DASILVA TIC 4 COL COL MANIPULAT TOR TX SPINAL 3-4 REGIONS MANUAL 99986 VIDYA DASILVA THERAPY 4 COL COL TQS 1/> REGIONS EACH 15 MINUTES APPL 03887 VIDYA DASILVA MODALITY 4 COL COL 1/> [...] Date Code Location Performer Type Date OFFICE 73724 SELENE MORTON OUTPATIEN 5 5 TIF [facility] T VISIT 10 MINUTES OFFICE 23561 [facility] PATHAK II OUTPATIEN 5 5 [facility] SLEEP JUSTIN T VISIT AND REHA 15 MINUTES HOSPITAL PSYCHIATRIC - 5 5 [facility] ANATOLIY - 4 5 [facility] OUTPATIEN [facility] ANATOLIY [facility] 4 4 [facility] OUTPATIEN [facility] OFFICE [facility] 4 [facility] VISIT CARDIOLOG 15 Y AT CENT MINUTES OFFICE 54630 SELENE SELENE OUTPATIEN 4 4 TIF TIF T NEW 30 MINUTES HOSPITAL ANATOLIY - 4 4 [facility] OUTPATIEN [facility] PSYCHIATR[facility] - 4 4 [facility] 48775 [facility] 4 4 NAZANIN VISIT CARDIOLOG 15 Y AT CENT MINUTES HOSPITAL ANATOLIY - 4 4 [facility] OUTPATIEN [facility] OFFICE 33188 DANIEL SANCHEZ CONSULTAT 4 4 JACKSON RODRIGUEZ NEW/ESTAB PATIENT 60 MIN OFFICE 67555 SWAPNA BARCENAS OUTPATIEN 4 4 BRIANNA REED T VISIT 25 MINUTES OFFICE 98779 FREDI RAI OUTPATIEN 4 4 SARATH SARATH T VISIT 15 MINUTES OFFICE 64771 [facility] OUTPATIEN 4 4 T VISIT 15 MINUTES OFFICE 92861 VIDYA DASILVA OUTPATIEN 4 4 COL COL T VISIT 10 MINUTES OFFICE 65478 ROCIO JERAMIE [facility] OUTPATIEN 4 4 T VISIT 15 MINUTES OFFICE 43265 ROCIOREGLA BOBO [facility] OUTPATIEN 4 4 T VISIT 15 MINUTES [facility] PSYCHIATRIC - 4 4 EAST OUTPATIEN T OFFICE 76768 [facility]LA PHILLIP[facility]K [facility] OUTPATIEN 4 4 T VISIT 15 MINUTES OFFICE 28107 MARTÍNEZ SOLIZ OUTPATIEN 4 4 NAZANIN NAZANIN T NEW 30 MINUTES OFFICE 11848 ROCIO JERAMIE PHILLIPSIK [facility]AM OUTPATIEN 4 4 T VISIT 15 MINUTES OFFICE 21899 ROCIO PHILLIPSIK [facility]AM OUTPATIEN 4 4 T VISIT 15 MINUTES OFFICE 40099 SWAPAN BARCENAS CONSULTAT 4 4 BRIANNA BRIANNA ION NEW/ESTAB PATIENT 80 MIN OFFICE 63013 ROCIO JERAMIE PHILLIPSIK HAM OUTPATIEN 4 4 T NEW 45 MINUTES OFFICE 97754 VIDYA VIDYA OUTPATIEN 4 4 COL COL T NEW 20 MINUTES OFFICE 53661 ABDULKADIRRODRIGUE FREDI OUTPATIEN 4 4 SARATH SARATH T VISIT 15 MINUTES OFFICE 87151 FREDI RAI OUTPATIEN 4 4 SARATH SARATH T VISIT 15 MINUTES
--- OUTSIDE RECORDS SUMMARY | 2017-06-09 22:48 | External Medical Summary Rpt | CCD ---
Demographics Preferred Language Montenegrin Marital Status Unknown Christianity Affiliation Unknown Race Unknown Ethnic Group Unknown Author Author , JASS REGAN Address Unknown Phone Immunization Unable to retrieve immunization data due to connection failure with Immunization Registry. Please try again later.
== END 2017-05-30 16:51 | disposition home or self-care (01) ==
LOC: UTC 15:37 → ER 15:37 → UTC 16:01
DX: M25.552 Pain in left hip (principal); M25.562 Pain in left knee; I25.10 Atherosclerotic heart disease of native coronary artery without angina pectoris; I10 Essential (primary) hypertension; J45.909 Unspecified asthma, uncomplicated; E11.9 Type 2 diabetes mellitus without complications; F17.210 Nicotine dependence, cigarettes, uncomplicated; Z88.0 Allergy status to penicillin; Z88.2 Allergy status to sulfonamides; Z88.6 Allergy status to analgesic agent

== ENCOUNTER → 2017-06-14 | Outpatient (CLI) | payer MEDICARE ==
[~2017-06-14] MED LIST changes: +ADDERALL 30 MG30 MG PO; +BACTROBAN2% TP; +BENADRYL 25MG C25 MG PO; +EFFEXOR XR 75MG75 MG PO; +FEXOFENADINE60 MG PO; +IBUPROFEN800 MG PO; +LAMICTAL 100 M100 MG PO; +NUVIGIL200 MG PO; +SINGULAIR10 MG PO; +SKELAXIN 800MG800 MG PO; +ZANTAC 150150 MG PO
[2017-06-14 10:42] LABS: HEMOGLOBIN 13.8 g/dL (12.2-16.2); LYMPH # 2.8 K/mm3 (0.7-4.5); LYMPH % 23.9 % (10-50.0)
--- NOTE | 2017-06-14 12:12 | RADIOLOGY REPORT PS360 ---
HIP LT 2-3V W/PELVIS IF PERFOR HISTORY: Left hip pain ACUTE LT KNEE AND HIP PAIN ORDERING PHYSICIAN: Noman Gamboa APRN PATIENT AGE: 61 years COMPARISON: None FINDINGS: No fracture or dislocation. There is an os acetabulum on the left as a normal variant. Osteoarthritis involves the left SI joint inferiorly and there are facet arthritic changes on the right at L5-S1. The left superior pubic ramus and ischium appear slightly thickened compared to the right side. This is of questionable clinical significance. A CT scan of the pelvis may confirm this finding if clinically warranted. The overall density of the left superior pubic ramus and ischium is similar to the right side. IMPRESSION: 1. No acute finding. 2. Osteoarthritis of the left SI joint 3. Mild thickening of the left suprapubic ramus and ischium of questioned clinical significance. CT scan may confirm this finding if clinically warranted.
--- NOTE | 2017-06-14 12:13 | RADIOLOGY REPORT PS360 ---
KNEE-3 VIEWS-LT HISTORY: ACUTE LT KNEE AND HIP PAIN ORDERING PHYSICIAN: Noman Gamboa APRN PATIENT AGE: 61 years COMPARISON: None FINDINGS: No fracture or dislocation. No lytic or blastic change. Normal mineralization. No significant arthritic changes evident. Vascular calcifications noted in the popliteal region IMPRESSION: Negative Knee
--- NOTE | 2017-06-14 12:20 | RADIOLOGY REPORT PS360 ---
EXAM: LUMBAR SPINE 5 VIEWS HISTORY: CHRONIC LUMBOSACRAL PAIN ORDERING PHYSICIAN: Noman Gamboa APRN PATIENT AGE: 61 years COMPARISON: None FINDINGS: There is moderate lumbar scoliosis convex right measuring 27 degrees. On the level degenerative disc disease is present from L1 to S1 worse at the L2-L3, L3-L4, and L5-S1 levels. Facet arthritic changes are present from L1 to S1. There is mild right lateral translation of L4 4 on L5 of 7 mm there is mild anterolisthesis of L4 on L5 6 mm anterior No fracture or dislocation. No lytic or blastic change. Generalized vascular calcification is present. IMPRESSION: Dextroscoliosis of the lumbar spine with spondylosis including multilevel degenerative disc disease and facet arthritic change
[2017-06-14 12:25] LABS: BUN 8 mg/dL (7-18)
[2017-06-14 12:27] LABS: GFR (ESTIMATED) 101 ML/MIN (59-)
[2017-06-15 09:38] LABS: Vitamin B12 995 pg/mL (211-946)
[2017-06-15 12:36] LABS: RA Latex Turbid. <10.0 IU/mL (0.0-13.9)
[2017-06-17 03:36] LABS: CCP Antibodies IgG/IgA 2 units (0-19)
[2017-06-20 03:37] LABS: 1,25-Dihydroxy, Vitamin D-2 <10 pg/mL (.); 1,25-Dihydroxy, Vitamin D-3 80 pg/mL (.); Total 1,25-Dihydroxy,Vitamin D 80 pg/mL (.)
== END ==
LOC: LAB 10:01 → RAD 10:01
PROVIDERS: Nurse Practitioner Family
DX: R53.83 Other fatigue (principal); M25.552 Pain in left hip; M25.562 Pain in left knee; M54.5 Low back pain

== ENCOUNTER 2017-06-20 12:41 | Emergency (ER) | payer MEDICARE ==
[~2017-06-20] VITALS: Ht 162.6 cm; Wt 77.1 kg
--- NOTE | 2017-06-20 13:16 | Emergency Room Report ---
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 N Clinical Suspician of Infection? N Mental Status: 1 - Regular (Normal Baseline) Sepsis Risk:Low Sepsis Risk Have you (or family members/close friends) recently traveled outside the [place]? N If Yes, where/when: Have you had exposure to infectious disease within the past month? N TB? Other? Specify: 61 years old white female with history of degenerative arthritis of the lumbar spine and lumbar canal stenosis by an MRI done in 2012. She has been experiencing exacerbation of her lower back pain radiating to the LEFT hip and LEFT knee for the past week. She was seen in 6 days ago and obtained an x-ray of the hip area that was questionable for fracture. She was scheduled to see a primary care physician for additional x-rays. This morning the pain excruciating and she was unable to walk to the bathroom from the pain despite of taking hydrocodone and Motrin 800 solution called amlexanox arrived in the ED. She denies having any weakness or numbness involving the lower extremities, there is no loss of urine or bowel control. She denies having abdominal pain or chest pain. When she was offered to be assisted to the bathroom she refused and she wanted to go by herself. Source patient, RN notes reviewed Exam Limitations no limitations ALLERGIES Coded Allergies: Adhesives Sulfa (Sulfonamide Antibiotics) codeine (01/09/17) moxifloxacin (From AVELOX) penicillin G Home Medications Active Scripts MUPIROCIN 2% (Bactroban Oint) 1 MAY TP BID #1 TUBE Prov: 01/09/17 Ibuprofen (Ibuprofen 800MG) 800 MG PO TIDP PRN pain #60 TAB Prov: 05/30/17 Methylprednisolone (Medrol Dose Adolfo) 4 MG PO UD #1 ADOLFO Prov: 04/29/17 Ranitidine Hcl (Zantac) 150 MG PO BID #14 TAB Prov: 04/29/17 Diphenhydramine Hcl (Benadryl 25MG CAP) 1 CAP PO Q8HP #15 CAP Prov: 04/29/17 Reported Medications AMLODIPINE BESYLATE/BENAZEPRIL (Lotrel 5-20 MG Capsule) 1 CAP PO DAILY GABAPENTIN (Gabapentin) 400 MG PO QHS Aspirin 81 MG PO DAILY Atenolol (Atenolol) 12.5 MG PO DAILY Atorvastatin Calcium (Lipitor 20MG) 40 MG PO DAILY ALPRAZOLAM (Alprazolam 0.25MG) 0.25 MG PO PRN PRN ANXIETY Diclofenac Sodium (Voltaren 75mg (GEQ)) 75 MG PO DAILY Sucralfate (Carafate Tab) 1 GM PO ACHS FEXOFENADINE HCL (Fexofenadine HCl) 60 MG PO DAILY Metaxalone (Skelaxin 800MG Tab) 800 MG PO DAILY Venlafaxine Hydrochloride (Effexor XR 75MG) 75 MG PO DAILY Lamotrigine (Lamictal 100Mg) 100 MG PO BID Armodafinil (Nuvigil) 200 MG PO DAILY Montelukast Sodium (Singulair) 10 MG PO QHS Dextroamphetamine/Amphetamine (Adderall 30 MG Tablet) 30 MG PO BID History Medical History General CAD? Yes Angina: Yes [place]: No Hypertension? Yes Hyperlipidemia? Yes CHF? No DVT? No PE? No COPD? No Asthma? Yes Anemia? No GERD? No Gastric ulcers? No GI Bleed? No Hernia? No Thyroid Problems? No Hypothyroidism? No CVA? No Seizures? No Diabetes? Yes Insulin Dependent: No Insulin Pump: No Home FSBS? No Renal Insuffiency? No End Stage Renal Disease? No UTI? No Stones? No BPH? No GB Disease: No Nephritic Syndrome? No Asplenia? No Hepatitis? No Sickle Cell Disease? No Arthritis? No Migraines? No Cataracts? Yes Glaucoma? No MRSA? No HIV? No TB? No Anxiety? No Depression? No Cancer? No Immunization Hx Ped.Immunizations UTD Yes DT/Tetanus Unknown Surgical Hx Previous Surgery?Y TONSILS BIRTHMARK REMOVED BREAST BIOPSY CARDIAC STENT 1999 Social History Smoking Hx Smoker: Current Every Day Smoker Tobacco: Yes Type Cigarettes Packs/day 1 1/2 - 2 Packs Are you/the child exposed to second-hand smoke: Yes Alcohol Alcohol: No Review of Systems All Other Systems Reviewed and Negative Constitutional no symptoms reported Eyes no symptoms reported ENT no symptoms reported. Respiratory no symptoms reported Cardiovascular no symptoms reported Gastrointestinal no symptoms reported Genitourinary no symptoms reported. Musculoskeletal see HPI, back pain, joint pain (LEFT hip and LEFT knee) Skin no symptoms reported Psychiatric/Neurological no symptoms reported Physical Exam Vital Signs Vital Signs Date Time Temp Pulse Resp B/P Pulse O2 O2 Flow FiO2 Ox Delivery Rate 06/20 1510 87 18 155/86 97 06/20 1420 88 18 152/97 100 06/20 1243 92 18 161/106 100 - WBC >12,000 or <4,000 or 10% bands? 2 or more SIRS Criteria Met? B/P:161/106 MAP:124 Creatinine >2.0? UA output<0.5ml/kg/hr for 2 hrs? Platelet count >100,000? Lactate >2.0mmol/1? INR >1.2 or PTT > than 60 sec? Evidence of Organ Dysfunction? Provider documented clinical suspician of infection? N Sepsis Criteria Count: 1 Sepsis Risk: Low Sepsis Risk General Appearance normal appearance, WD/WN, mild distress (due to pain), moderate distress Eye Exam - bilateral eye normal exam, bilateral eye PERRL, bilateral eye EOMI Ear, Nose, Throat hearing grossly normal, normal ENT inspection Neck normal inspection, non-tender, supple, full range of motion Respiratory Status Yes: trachea midline, chest symmetrical, non tender chest. No: respiratory distress. Lung Sounds bilateral: normal breath sounds, lungs clear. Cardiovascular normal exam, regular rate/rhythm, no peripheral edema, no gallop, no JVD, no murmur, no rub, normal peripheral pulses Peripheral Pulses Pulses normal Yes Gastrointestinal normal bowel sounds, normal exam, non tender, soft, no organomegaly Back normal inspection, no CVA tenderness, no vertebral tenderness Extremities non-tender, normal range of motion, normal inspection, normal capillary refill, no calf tenderness, no pedal edema, pelvis stable, I examined her LEFT hip and LEFT knee. She had intact range of motion would not without limitation. Her main pain was over her lumbar spine and the LEFT and the LEFT sacroiliac joint. 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 Normal Babinski. Straight leg raising was 90 degrees bilaterally. Reflexes Reflexes normal Yes Mental status normal mood/affect Skin intact, normal color, warm/dry Medical Decision Making LABS/Meds/Orders Pt receiving controlled substance in ED? No Results/Orders Laboratory Tests 06/20/17 141: ESR 8 06/20/171414: Sodium 135 L, Potassium 3.5, Chloride 96 L, Carbon Dioxide 26, BUN 9, Creatinine 0.7, Estimated Creat Clear 100, Estimated GFR (MDRD) 85, Glucose 122 H, Calcium 10.0, Total Bilirubin 0.5, AST 22, ALT 34, Alkaline Phosphatase 112, Total Protein 7.7, Albumin 4.4, Globulin 3.3 H, Albumin/Globulin Ratio 1.3, WBC 14.1 H, RBC 5.07, Hgb 15.3, Hct 44.2, MCV 87.2, RDW 12.3, Plt Count 416, MPV 6.6 L, Gran % 78.5, Gran # 11.1 H, Lymphocytes % 15.1, Monocytes % 5.2, Eosinophils % 0.9, Basophils % 0.3, Lymphocytes # 2.1, Monocytes # 0.7, Eosinophils # 0.1, Basophils # 0.1, PUBS MCHC 34.5, MCH 30.1 06/20/17 1410: Opiates Screen Pending, Urine Methadone Screen Pending, Barbiturates Pending, Phencyclidine Screen Pending, Amphetamines Screen Pending, Benzodiazepines Screen Pending, Cocaine Screen Pending, Marijuana (THC) Screen Pending, Urine Color Pending, Urine Appearance Pending, Urine pH Pending, Ur Specific Melber Pending Current Medication Orders Sig/Keith Start time Last Medication Dose Route Stop Time Status Admin Famotidine 20 MG ONCE ONE 06/20 1330 DC 06/20 IV 06/20 1331 1414 Methylprednisolone 125 MG ONCE ONE 06/20 1330 DC 06/20 Sodium Succinate IV 10/22 1331 1415 Sodium Chloride 8 ML ONCE ONE 06/20 1330 DC 06/20 IV 06/20 1331 1415 Famotidine 0 .STK-MED ONE 06/20 1322 DC IV Methylprednisolone 0 .STK-MED ONE 06/20 132 DC Sodium Succinate .ROUTE Sodium Chloride 10 ML PRN PRN 06/20 1300 AC IV 06/21 1250 Orders Procedure Date/time Status DIET-NOTHING BY MOUTH 06/20 D Active URINALYSIS/COMPLETE 06/20 1506 Active DRUG ABUSE SCREEN (TRIAGE) 06/[address] SCAN REQ 06/20 1317 Complete SED RATE 06/20 1317 Complete IV SALINE LOCK 06/20 1250 Active CBC WITH AUTO DIFF 06/20 125 Complete CHEM 12 PROFILE 06/20 1250 Complete Departure Departure Time of Disposition 1522 Disposition DC Home or Self Care(routine) Clinical Impression Primary Impression: Lumbar disc disease with radiculopathy Secondary Impressions: Sciatica, Sciatica associated with disorder of lumbar spine Condition STABLE Referrals Noman Gamboa APRN (Family) Additional Instructions I called [facility] wholesale agronomist Neurosurgeon Dr Bonner who informed me that as long as she has no neurologic deficites, he will see her in AM 06/21 9 Am in the office for an MRI and expedited evalution. [phone]. third floor. He advised to start her on steroids which I did. will give her a copy of the CT scan and the report. Medrol dose pack to return immediately if she devlops any leg weakness, foot drop or bowel or urinary incontenance. The patietn verbalized understanding of the above DC plan. Dr. Prescott Discharge Counseling Counseled pt/family regarding diagnosis, test results, medications/RX, home care, follow up needs Prescriptions Current Visit Scripts Methylprednisolone (Medrol Dose Adolfo) 4 MG PO UD #1 ADOLFO TAKE DIRECTED ON PACKAGING Ranitidine Hcl (Zantac) 150 MG PO BID #20 TAB ED Critical Care Critical Care No If Critical Care minutes are documented, the time involved in the performance of seperately reportable procedures was not counted toward critical care time documented. I directly delivered medical care to this critically ill and/or injured patient. Timely evaluation and treatment was necessary to address the significant organ system(s) dysfunction present in this patient. at [id number]
--- OUTSIDE RECORDS SUMMARY | 2017-06-20 14:00 | External Medical Summary Rpt | CCD ---
Author Author , JASS REGAN Address Unknown Phone [email or web address] Care Team Providers Care Publications Production Supervisor Name Role Phone FREDI SARATH, FREDI Unavailable [...] FARMER Unavailable Unavailable MDPLC, JESSICA FARMER MDPLC [facility] Unavailable Unavailable AT [facility], [facility] ROCIO ZUÑIGA Unavailable Unavailable SWAPNA BRIANNA, Unavailable [...] Unavailable Unavailable [facility], [facility], Unavailable Unavailable [facility], Unavailable Unavailable [facility] JAKE BRIANNA, JAKE BRIANNA Unavailable Unavailable JAKE BRIANNA, JAKE BRIANNA Unavailable Unavailable DANIEL CAGLE Unavailable Unavailable DANIEL TOM Unavailable Unavailable JACKSON Purpose Continuity of Care Document - 09-07-2013 through 2016 Problems Code Diagnosis DOS Provider Status 62211 SPINAL 12-27-2014 [facility]I INC STENOSIS UNSPEC REGION OTH THAN CERVICAL 7245 UNSPECIFIED 12-27-2014 [facility] INC BACKACHE 51468 OBSTRUCTIVE 11-26-2014 [facility] APNEA MEDICAL [...] LUMBAR 11-15-2014 SELENE DEVINE SPRAIN AND STRAIN 85524 DEGEN 10-10-2014 [facility]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 7244 THORACIC/RAMANA 10-10-2014 [facility] MBOSACRAL H SLEEP AND NEURITIS/RA REHA DICULITIS UNSPEC 19246 PAIN IN 07-30-2014 [facility]Y JOINT, [facility] LOWER LEG INC V571 OTHER 07-30-2014 [facility] PHYSICAL [facility] THERAPY INC 4019 UNSPECIFIED 06-01-2014 [facility] HYPERTENSIO AT CENT N 4148 OTHER SPEC 06-01-2014 [facility] CHRONIC AT CENT ISCHEMIC HEART DISEASE 7213 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 JESSICA FARMER SPONDYLOSIS MDPLC WITHOUT MYELOPATHY 2724 OTHER AND 01-27-2014 [facility] UNSPECIFIED [facility] INC HYPERLIPIDE GIBRAN V5869 LONG-TERM 01-27-2014 [facility] (CURRENT) [facility] USE OF INC OTHER MEDICATIONS 4778 ALLERGIC 01-25-2014 SW[facility] RHINITIS BRIANNA DUE TO OTHER ALLERGEN 58782 CORONARY 01-19-2014 [facility] OSIS OHKAY OWINGEH CORONARY ARTERY 5368 DYSPEPSIA&O 01-19-2014 [facility] THER SPEC HOSPITAL DISORDERS FUNCTION STOMACH 02169 UNSPECIFIED 01-19-2014 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 UNSPEC V7651 SPECIAL 01-19-2014 JAKE BRIANNA SCREENING FOR MALIGNANT NEOPLASMS COLON 4011 ESSENTIAL 01-15-2014 [facility] HYPERT[facility]O CARDIOLOGY N, BENIGN AT CENT 26363 PES 01-02-2014 DANIEL JACKSON ANSERINUS TENDINITIS OR BURSITIS 02718 OTHER 01-01-2014 [facility] CHRONIC BRIANNA ALLERGIC CONJUNCTIVI TIS 4770 ALLERGIC 01-01-2014 SWAPNA RHINITIS BRIANNA DUE TO POLLEN 76234 EXTRINSIC 01-01-2014 SWAP[facility] ASTHMA, BRIANNA UNSPECIFIED 3384 CHRONIC 12-29-2013 FREDI CLEMENS PAIN SYNDROME 23923 OSTEOARTHRO 12-29-2013 FREDI CLEMENS S INVLV MX SITES BUT NOT SPEC GEN V7612 OTHER 11-15-2013 [facility] MAMMOGRAM 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 10947 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 4772 ALLERGIC 10-03-2013 SW[facility] RHINITIS BRIANNA DUE TO ANIMAL HAIR AND DANDER 59352 ASTHMA, 10-03-2013 [facility] UNSPECIFIED EQUIPMENT , INC UNSPECIFIED STATUS V727 DIAGNOSTIC 10-03-2013 SWAP[facility] SKIN AND BRIANNA SENSITIZATI ON TESTS 3674 PRESBYOPIA 09-29-2013 SCIFRES ANG 99313 ESOPHAGEAL 09-14-2013 FREDI CLEMENS REFLUX 23783 UNS 09-14-2013 FREDI CLEMENS GASTRITIS&G ASTRODUODIT IS W/O MENTION HEMORR 4619 ACUTE 09-07-2013 FREDI CLEMENS SINUSITIS, UNSPECIFIED 9953 ALLERGY 09-07-2013 FREDI CLEMENS UNSPECIFIED NOT ELSEWHERE CLASSIFIED Results Labs Lab Lab Date Result Refere Interp Status Commen Order Detail nces retati t Range on 1,25-Dihydroxy,Vitamin D by MS (06-14-2017 10:15) Serum 10-16-2 = 80 . complet or 017 pg/mL ed plasma 10:15 1,25-di hydroxy vitamin D Comment: Reference Range: Comment: Adults: 21 - 65 Serum 10-16-2 = 80 . complet or 017 pg/mL ed plasma 10:15 1,25-di hydroxy vitamin D3 Comment: Performed at: [facility] Comment: [address] [facility], [place], [place] [id number] Comment: Cloud Architect: Dhruv Watts MD, Phone: [phone] Serum 10-16-2 < 10 . complet or 017 pg/mL ed plasma 10:15 1,25-di hydroxy vitamin D2 Serum or plasma rheumatoid factor measur (06-14-2017 10:03) Serum 10-16-2 < 10.0 0.0-13. complet or 017 IU/mL 9 ed plasma 10:03 rheumat oid factor measur Comment: Performed at: [facility] Comment: [address] [place], [place] [id number] Comment: Cloud Architect: Rex Nova PhD, Phone: [phone] CCP IgG + IgA serum ANCELMO (06-14-2017 10:03) CCP IgG 2 = 2 0-19 complet + IgA 017 units ed serum 10:03 ANCELMO Comment: Negative <20 Comment: Weak positive 20 - 39 Comment: Moderate positive 40 - 59 Comment: Strong positive >59 Comment: Performed at: [facility] Comment: [address] [place], [place] [id number] Comment: Cloud Architect: Med Freeman MD, Phone: [phone] Vitamin B12 ser/plas (06-14-2017 10:03) Vitamin = 995 211-946 complet B12 017 pg/mL ed ser/casey 10:03 s Comment: Performed at: [facility] Comment: [address] [place], [place] [id number] Comment: Cloud Architect: Rex Nova PhD, Phone: [phone] Comprehensive metabolic panel (06-14-2017 10:03) Protein = 6.7 6.4-8.2 complet total 017 gm/dL ed ser/casey 10:03 s ALT = 26 12-78 complet (SGPT) 017 U/L ed ser/casey 10:03 s Serum = 26 15-37 complet or 017 U/L ed plasma 10:03 asparta te aminotr ansfera Comment: AST RESULT MAY BE SLIGHTLY ELEVATED DUE TO 2+ HEMOLYSIS Serum = 127 136-145 complet sodium 017 mmoL/L ed measure 10:03 ment Serum 2 = 3.9 3.5-5.1 complet potassi 017 mmoL/L ed um 10:03 measure ment Comment: K RESULT MAY BE SLIGHTLY ELEVATED DUE TO 2+ HEMOLYSIS Serum = 98 74-106 complet or 017 mg/dL ed plasma 10:03 glucose measure ment (mas Serum = 2.7 1.3-3.2 complet globuli 017 gm/dL ed n 10:03 measure ment (mass/v olume) Estimat = 101 59- complet ed 017 ML/MIN ed glomeru 10:03 lar filtrat ion rate (GF Comment: REFERENCE RANGE: >60 ML/MIN/1.73 SQUARE METERS Comment: If this patient is -Malaysian, then multiply the Comment: result by 1.210. Serum = 0.6 0.55-1. complet or 017 mg/dL 02 ed plasma 10:03 creatin ine measure ment ( Carbon = 28 21.0-32 complet dioxide 017 mmoL/L .0 ed 10:03 measure ment Serum = 91 98-107 complet or 017 mmoL/L ed plasma 10:03 chlorid e measure ment (mo Serum = 8.9 8.5-10. complet or 017 mg/dL 1 ed plasma 10:03 calcium measure ment (mas Serum = 8 7-18 complet or 017 mg/dL ed plasma 10:03 urea nitroge n measure men Serum = 0.3 0.2-1.0 complet or 017 mg/dL ed plasma 10:03 total bilirub in measure m Serum = 105 46-116 complet or 017 U/L ed plasma 10:03 alkalin e phospha tase lynn Serum = 4.0 3.4-5.0 complet or 017 gm/dL ed plasma 10:03 albumin measure ment (mas Serum = 1.5 1.1-1.8 complet or 017 ed plasma 10:03 albumin /globul in mass ra Erythrocyte sedimentation rate by john (06-14-2017 10:03) Erythro = 7 0-30 complet cyte 017 mm/hr ed sedimen 10:03 tation rate by john CBC w auto diff (06-14-2017 10:03) Automat = 0.1 0-0.2 complet ed 017 K/MM3 ed blood 10:03 basophi l count (count/ vo Blood = 11.8 4.8-10. complet leukocy 017 K/MM3 8 ed paty 10:03 count (number /volume ) Automat = 12.6 11.5-17 complet ed 017 % .5 ed erythro 10:03 cyte distrib ution width Red = 4.49 4.2-5.4 complet blood 017 M/mm3 ed cell 10:03 count Blood = 394 142-424 complet platele 017 K/mm3 ed t count 10:03 Automat = 6.8 7.4-10. complet ed 017 fl 4 ed blood 10:03 platele t mean volume lynn Pender % = 4.7 % 1.7-9.3 complet 017 ed 10:03 Absolut = 0.6 0.1-1.0 complet e 017 K/mm3 ed monocyt 10:03 e count Automat = 89.0 82.2-97 complet ed 017 fl .8 ed erythro 10:03 cyte mean corpusc ular v Automat = 34.4 31.8-35 complet ed 017 g/dl .4 ed erythro 10:03 cyte mean corpusc ular h Mean = 30.6 27-31.2 complet corpusc 017 pg ed ular 10:03 hemoglo bin (MCH) determ Lymphoc = 23.9 10-50.0 complet yte 017 % ed count, 10:03 blood, automat ed Absolut = 2.8 0.7-4.5 complet e 017 K/mm3 ed lymphoc 10:03 yte count Blood = 13.8 12.2-16 complet hemoglo 017 g/dL .2 ed bin 10:03 measure ment (mass/v olum Blood = 40.0 37.0-47 complet hematoc 017 % .0 ed rit 10:03 (volume fractio n) Granulo = 69.4 37.0-80 complet cyte 017 % .0 ed percent 10:03 age Blood = 8.2 1.8-7.8 complet granulo 017 K/mm3 ed cytes 10:03 automat ed count (numb Automat = 1.6 % 0.1-12. complet ed 017 0 ed blood 10:03 eosinop hils/10 0 leukocy t Automat = 0.2 0.0-0.4 complet ed 017 K/mm3 ed blood 10:03 eosinop hil count Baso % = 0.5 % 0.1-2.0 complet 017 ed 10:03 CRP (06-14-2017 10:03) CRP < 0.2 0.0-0.9 complet 017 MG/DL ed 10:03 Serum or plasma thyroid stimulating horm (06-14-2017 10:03) Serum = 2.24 0.358-3 complet or 017 uIU/ml .740 ed plasma 10:03 thyroid stimula ting horm Serum or plasma free thyroxine (T4) rosa m (06-14-2017 10:03) Serum = 1.12 0.76-1. complet or 017 ng/dL 46 ed plasma 10:03 free thyroxi ne (T4) rosa m Hemoglobin A1c in Blood (04-19-2017 16:16) Hemoglo 6.0 % 0.0% Normal complet bin A1c 017 - ed in 16:16 7.0% Blood Procedures Procedure DOS Code Location Performer Comment ELECTRICA A4595 EMPI INC EMPI INC L 5 STIMULATO R SUPPLIES 2 LEAD PER MONTH ELECTRICA A4595 [facility] EMPI INC L 5 STIMULATO R SUPPLIES 2 LEAD PER MONTH FILTER A7038 PUMA BARTHOLOMEW DISPBL 5 HOME HOME USED MEDICAL MEDICAL W/POS EQUIPME EQUIPME ARWAY PRESSURE DEVICE FULL FACE A7030 PUMA DORADORELL MASK 5 HOME HOME USED MEDICAL MEDICAL W/POS EQUIPME EQUIPME ARWAY PRESS DEVICE EA TUBING A7037 PUMA BARTHOLOMEW USED WITH 5 HOME HOME POSITIVE MEDICAL MEDICAL AIRWAY EQUIPME EQUIPME PRESSURE DEVICE CHIROPRAC 98784 SELENE MORTON TIC 5 TIF TIF MANIPULAT TOR TX SPINAL 3-4 REGIONS CHIROPRAC 89055 SELENE MORTON TIC 5 TIF TIF MANIPLTV TX EXTRASPIN AL 1/> REGION CHIROPRAC 71401 SELENE MORTON TIC 5 TIF TIF MANIPLTV TX EXTRASPIN AL 1/> REGION CHIROPRAC 34914 SELENE MORTON TIC 5 TIF TIF MANIPULAT [...] EQUIPME EQUIPME W/POS ARWAY PRESS DEVICE POLYSOM [address] ASIM 6/>YRS 5 EAST EAST SLEEP W/CPAP 4/> ADDL BEE ATTND LUMB L0627 PUMA DORADORELL ORTHOSIS 5 HOME HOME SAGIT MEDICAL MEDICAL CNTRL EQUIPME EQUIPME RIGID A&P PANEL PREFAB TENS E0730 Tower59I SlideBatchI INC DEVICE 5 4/MORE LEADS MULTI NERVE STIMULATI ON CHIROPRAC 96840 SELENE MORTON TIC 5 TIF TIF MANIPULAT TOR TX SPINAL 3-4 REGIONS CHIROPRAC 93013 SELENE MORTON TIC 5 TIF TIF MANIPLTV [...] MEDICAL AIRWAY EQUIPME EQUIPME PRESSURE DEVICE CHIROPRAC 70920 SELENE MORTON TIC 4 TIF TIF MANIPULAT TOR TX SPINAL 3-4 REGIONS CHIROPRAC 74178 SELENE MORTON TIC 4 TIF TIF MANIPLTV TX EXTRASPIN AL 1/> REGION TENS E0730 Tower59I SlideBatchI INC DEVICE 4 4/MORE LEADS MULTI NERVE STIMULATI ON THERAPEUT 54441 ANATOLIY COPE IC PX 1/> 4 [facility] AREAS INC INC EACH 15 MIN EXERCISES HEADGEAR A7035 PUMA PUMA USED 4 HOME HOME W/POSITIV MEDICAL MEDICAL E AIRWAY EQUIPME EQUIPME PRESSURE DEVICE FILTER A7038 PUMA BARTHOLOMEW DISPBL 4 HOME HOME USED MEDICAL MEDICAL W/POS EQUIPME EQUIPME ARWAY PRESSURE DEVICE FULL FACE A7030 PUMA PUMA MASK 4 HOME HOME USED MEDICAL MEDICAL W/POS EQUIPME EQUIPME ARWAY PRESS DEVICE EA APPL 84268 ANATOLIY COPE MODALITY 4 [facility] 1/> AREAS INC INC ELEC STIMJ EA 15 MIN THERAPEUT 64723 ANATOLIY ANATOLIY IC PX 1/> 4 [facility] AREAS INC INC EACH 15 MIN EXERCISES CHIROPRAC 10507 SELENE MORTON TIC 4 TIF TIF MANIPULAT TOR TX SPINAL 3-4 REGIONS CHIROPRA 55806 SELENE MORTON TIC 4 TIF TIF MANIPLTV TX EXTRASPIN AL 1/> REGION THERAPEUT 54965 ANATOLIY ANATOLIY IC PX 1/> 4 [facility]OS[facility] AREAS INC INC EACH 15 MIN EXERCISES THERAPEUT 14045 ANATOLIY ANATOLIY IC PX 1/> 4 [facility] AREAS INC INC EACH 15 MIN EXERCISES CHIROPRAC 84036 SELENE MORTON TIC 4 TIF TIF MANIPULAT TOR TX SPINAL 3-4 REGIONS CHIROPRAC 39736 SELENE MORTON TIC 4 TIF TIF MANIPLTV TX EXTRASPIN AL 1/> REGION CHIROPRAC 42877 SELENE MORTON TIC 4 TIF TIF MANIPLTV TX EXTRASPIN AL 1/> REGION APPL 99636 SELENE MORTON MODALITY 4 TIF TIF 1/> AREAS ELEC STIMJ UNATTENDE D CHIROPRAC 68513 SELENE MORTON TIC 4 TIF TIF MANIPULAT TOR TX SPINAL 3-4 REGIONS CHIROPRAC 63738 SELENE MORTON TIC 4 TIF TIF MANIPULAT TOR TX SPINAL 3-4 REGIONS APPL 11688 SELENE MORTON MODALITY 4 TIF TIF 1/> AREAS ELEC STIMJ UNATTENDE D CHIROPRAC 62867 SELENE MORTON TIC 4 TIF TIF MANIPLTV TX EXTRASPIN AL 1/> REGION APPL 24585 SELENE MORTON MODALITY 4 TIF TIF 1/> AREAS ELEC STIMJ UNATTENDE D CHIROPRAC 72414 SELENE MORTON TIC 4 TIF TIF MANIPLTV TX EXTRASPIN AL 1/> REGION CHIROPRAC 47742 SELENE MORTON TIC 4 TIF TIF MANIPULAT TOR TX SPINAL 3-4 REGIONS CHIROPRAC 64626 SELENE MORTON TIC 4 TIF TIF MANIPULAT TOR TX SPINAL 3-4 REGIONS CHIROPRAC 92666 SELENE MORTON TIC 4 TIF TIF MANIPLTV TX EXTRASPIN AL 1/> REGION APPL 40557 SELENE MORTON MODALITY 4 TIF TIF 1/> AREAS ELEC STIMJ UNATTENDE D RINGERS J7120 JESSICA FARMER LACTATE 4 E. FARMER CRISTY INFUSION MDPLC UP TO 1000 CC RINGERS J7120 JESSICA FARMER LACTATE 4 E. FARMER CRISTY INFUSION MDPLC UP TO 1000 CC LIPID 59386 ANATOLIY COPE PANEL 4 [facility] INC INC HEPATIC 65699 ANATOLIY COPE FUNCTION 4 [facility] PANEL INC INC PROF SVCS 61840 SWAPNA SWAPNA ALLG 4 BRIANNA BRIANNA IMMNTX X W/PRV ALLGIC XTRCS NJXS HUMDIFIR E0562 PUMA BARTHOLOMEW HEATED 4 HOME HOME USED MEDICAL MEDICAL W/POS EQUIPME EQUIPME ARWAY PRESSURE DEVICE ANES 28709 BURBERRY BURBERRY LOWER 4 JEOVANNY JEOVANNY INTESTINE ENDOSCOPY DISTAL DUODENUM PRESSURIZ 88543 [facility] ED/NONP[address] SSURIZED INHALATIO N TREATMENT INJECTION J[address] LIDOCAINE HCL INTRAVENO US INFUS 10 MG COLOREC G[address] SCR; COLNSCPY NOT MEET HI RISK COLONOSCO 64889 JAKE BRIANNA JAKE BRIANNA PY FLX DX 4 W/COLLJ SPEC WHEN PFRMD APPLICATI 08603 ANATOLIY COPE ON 4 [facility] MODALITY INC INC 1/> AREAS HOT/COLD PACKS APPL 44798 ANATOLIY COPE MODALITY 4 [facility]OS[facility] 1/> AREAS INC INC ULTRASOUN D EA 15 MIN THERAPEUT 10067 ANATOLIY COPE IC PX 1/> 4 [facility]OS[facility] AREAS INC INC EACH 15 MIN EXERCISES APPL 97967 ANATOLIY COPE MODALITY 4 [facility] HOS[facility]OSP 1/> AREAS INC INC ELEC STIMJ UNATTENDE D PHYSICAL 09270 ANATOLIY HENDERSON THERAPY 4 [facility] ELISHA EVALUATIO INC N PREPJ& 28765 SWAPNA SWAPNA ALLERGEN 4 BRIANNA BRIANNA 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 A7035 PUMA BARTHOLOMEW USED 4 [...] EQUIPME EQUIPME ARWAY PRESS DEVICE EA RADIOLOGI 96733 DANIEL SANCHEZ C EXAM 4 JACKSON JACKSON KNEE COMPLETE 4/MORE VIEWS SPMTRY 89465 SWAPNA SWAPNA W/VC 4 BRIANNA BRIANNA EXPIRATOR Y CELESTE W/WO MXML VOL VNTJ MANUAL 02381 VIDYA DASILVA THERAPY 4 COL COL TQS 1/> REGIONS EACH 15 MINUTES CHIROPRAC 31122 VIDYA DASILVA TIC 4 COL COL MANIPULAT TOR TX SPINAL 3-4 REGIONS MANUAL 97160 VIDYA DASILVA THERAPY 4 COL COL TQS 1/> REGIONS EACH 15 MINUTES APPL 34206 VIDYA DASILVA MODALITY 4 COL COL 1/> AREAS TRACTION MECHANICA L CHIROPRAC 15255 VIDYA DASILVA TIC 4 COL COL MANIPULAT TOR TX SPINAL 3-4 REGIONS APPL 52173 VIDYA COTTERON MODALITY 4 COL COL 1/> AREAS ELEC STIMJ UNATTENDE D [facility] [address] [facility] 4 [facility] DETECTION SCREENING MAMMOGRAP HY SCREENING G[address] MAMMOGRAP HY RICHY INCL CAD WHEN PERFORMD MANUAL 76366 VIDYA COTTERON THERAPY 4 COL COL TQS 1/> REGIONS EACH 15 MINUTES CHIROPRAC 26145 VIDYA DASILVA TIC 4 COL COL MANIPULAT TOR TX SPINAL 3-4 REGIONS APPL 29573 VIDYA COTTERON MODALITY 4 COL COL 1/> AREAS ELEC STIMJ UNATTENDE D APPL 25383 VIDYA DASILVA MODALITY 4 COL COL 1/> AREAS TRACTION MECHANICA L APPL 47094 VIDYA DASILVA MODALITY 4 COL COL 1/> AREAS ELEC STIMJ UNATTENDE D CHIROPRAC 78565 VIDYA DASILVA TIC 4 COL COL MANIPULAT TOR TX SPINAL 3-4 REGIONS APPL 49301 VIDYA COTTERON MODALITY 4 COL COL 1/> AREAS TRACTION MECHANICA L MANUAL 92368 VIDYA COTTERON THERAPY 4 COL COL TQS 1/> REGIONS EACH 15 MINUTES MANUAL 98514 VIDYA COTTERON THERAPY 4 COL COL TQS 1/> REGIONS EACH 15 MINUTES CHIROPRAC 56193 VIDYA DASILVA TIC 4 COL COL MANIPULAT TOR TX SPINAL 3-4 REGIONS APPL 26101 VIDYA COTTERON MODALITY 4 COL COL 1/> AREAS TRACTION MECHANICA L DRUG SCR G0434 ROC[facility] ROCIO HAM NOT 4 CHROMATOG RAPHIC; ANY NUMBER PT ENC APPL 08708 VIDYA COTTERON MODALITY 4 COL COL 1/> AREAS ELEC STIMJ UNATTENDE D SPACR A4627 MT MED MT MED BAG/RESRV 4 EQUIPMENT EQUIPMENT OR W/WO INC INC MASK W/METRD DOSE INHAL PERCUTANE 50542 SWAPNA SWAPNA OUS TESTS 4 BRIANNA BRIANNA W/ALLERGE ANCA EXTRACTS INTRACUTA 30376 SWAPNA SWAPNA NEOUS 4 BRIANNA BRIANNA TESTS W/ALLERGE ANCA EXTRACTS DEMO&/HYUN 90491 SWAPNA SWAPNA L OF PT 4 BRIANNA BRIANNA UTILIZ AERSL GEN/NEB/I NHLR/IP BRNCDILAT 14738 SWAPNA SWAPNA RSPSE 4 BRIANNA BRIANNA SPMTRY PRE&POST- BRNCDILAT ADMN PRESSURIZ 12059 SWAPNA SWAPNA ED/NONPRE 4 BRIANNA BRIANNA SSURIZED INHALATIO N TREATMENT TUBING A7037 SWAPNA SWAPNA USED WITH 4 BRIANNA BRIANNA POSITIVE AIRWAY PRESSURE DEVICE DETERMINA 73575 SCIFRES SCIFRES TION 4 ANG ANG REFRACTIV E STATE OPHTH 59485 SCIFRES SCIFRES MEDICAL 4 ANG ANG XM&EVAL COMPRE NEW PT 1/> VST APPL 64973 VIDYA DASILVA MODALITY 4 COL COL 1/> AREAS TRACTION MECHANICA L DRUG SCR G0434 ROC[facility] HAM ROCIO HAM NOT 4 CHROMATOG RAPHIC; ANY NUMBER PT ENC CHIROPRAC 17714 VIDYA DASILVA TIC 4 COL COL MANIPULAT TOR TX SPINAL 3-4 REGIONS MANUAL 62601 VIDYA DASILVA THERAPY 4 COL COL TQS 1/> REGIONS EACH 15 MINUTES APPLICATI 24455 VIDYA DASILVA ON 4 COL COL MODALITY 1/> AREAS HOT/COLD PACKS APPL 38063 VIDYA DASILVA MODALITY 4 COL COL 1/> [...] Date Code Location Performer Type Date OFFICE 08028 [facility] SELENE OUTPATIEN 5 5 TIF [facility] T VISIT 10 MINUTES OFFICE 36913 DILSHADRip ZO ALLEN OUTPATIEN 5 5 [facility] SLEEP JUSTIN T VISIT AND [facility]HA 15 MINUTES [facility] - 5 5 [facility] - 4 5 [facility] - 4 [facility] OFFICE 22488 [facility] OUTPATIEN 4 4 NAZANIN VISIT CARDIOLOG 15 Y AT CENT MINUTES OFFICE 31676 M[facility]ON SELENE OUTPATIEN 4 4 TIF TIF T NEW 30 MINUTES HOSPITAL ANATOLIY - 4 4 [facility] OUTPATIEN [facility] - 4 4 [facility] 88616 [facility] OUTPATIEN 4 4 NAZANIN T VISIT CARDIOLOG 15 Y AT CENT MINUTES HOSPITAL [facility]OLIY - 4 4 [facility] OFFICE 96827 DANIEL SANCHEZ CONSULTAT 4 4 JACKSON RODRIUGEZ NEW/ESTAB PATIENT 60 MIN OFFICE 89536 SWAPNA SWAPNA OUTPATIEN 4 4 BRIANNA BRIANNA T VISIT 25 MINUTES OFFICE 81976 FREDI RAI OUTPATIEN 4 4 SARATH SARATH T VISIT 15 MINUTES OFFICE 15928 ROCIO PHILLIPSIK HAM OUTPATIEN 4 4 T VISIT 15 MINUTES OFFICE 09987 VIDYA DASILVA OUTPATIEN 4 4 COL COL T VISIT 10 MINUTES OFFICE 81741 ROCIO JERAMIE [facility] OUTPATIEN 4 4 T VISIT 15 MINUTES OFFICE 88740 ROC[facility]AM [facility] OUTPATIEN 4 4 T VISIT 15 MINUTES [facility] - 4 4 EAST OUTPATIEN T OFFICE 85282 [facility] OUTPATIEN 4 4 T VISIT 15 MINUTES OFFICE 61703 MARTÍNEZ SOLIZ OUTPATIEN 4 4 NAZANIN NAZANIN T NEW 30 MINUTES OFFICE 90044 [facility] OUTPATIEN 4 4 T VISIT 15 MINUTES OFFICE 96052 ROCIO JERAMIE PHILLIPSIK HAM OUTPATIEN 4 4 T VISIT 15 MINUTES OFFICE 65541 SWAPNA SWAPNA CONSULTAT 4 4 BRIANNA BRIANNA ION NEW/ESTAB PATIENT 80 MIN OFFICE 76606 [facility] OUTPATIEN 4 4 T NEW 45 MINUTES OFFICE 60746 VIDYA VIDYA OUTPATIEN 4 4 COL COL T NEW 20 MINUTES OFFICE 65073 FREDI RAI OUTPATIEN 4 4 SARATH SARATH T VISIT 15 MINUTES OFFICE 80932 FREDI RAI OUTPATIEN 4 4 SARATH SARATH T VISIT 15 MINUTES
--- OUTSIDE RECORDS SUMMARY | 2017-06-20 14:00 | External Medical Summary Rpt | CCD ---
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 Name Role Phone FREDI SARATH, FREDI Unavailable Unavailable SARATH FREDI SARATH, ARNOLD Unavailable Unavailable SARATH VIDYA COL, Unavailable Unavailable VIDYA COL BOLIEK NAZANIN, BOLIEK Unavailable Unavailable NAZANIN SOLIZ NAZANIN, SOLIZ Unavailable Unavailable NAZANIN SOLIZ NAZANIN, SOLIZ Unavailable Unavailable NZAANIN BURBERRY JEOVANNY, Unavailable Unavailable BURBERRY JEOVANNY [facility] FARMER Unavailable Unavailable [facility]PLC, JESSICA FARMER MDPLC [facility] Unavailable Unavailable AT [facility], [facility] ROCIO ZUÑIGA Unavailable Unavailable SWAPNA BRIANNA, [...] Unavailable Unavailable EQUIPME, [facility], Unavailable Unavailable [facility], Unavailable Unavailable [facility] JAKE BRIANNA, JAKE BRIANNA Unavailable Unavailable JAKE BRIANNA, JAKE BRIANNA Unavailable Unavailable DANIEL CAGLE Unavailable Unavailable DANIEL TOM Unavailable Unavailable JACKSON Purpose Continuity of Care Document - 09-07-2013 through 2016 Problems Code Diagnosis DOS Provider Status 89532 SPINAL 12-27-2014 [facility] STENOSIS UNSPEC REGION OTH THAN CERVICAL 7245 UNSPECIFIED 12-27-2014 [facility] BACKACHE 53271 OBSTRUCTIVE 11-26-2014 [facility] APNEA MEDICAL [...] LUMBAR 11-15-2014 SELENE DEVINE SPRAIN AND STRAIN 21622 DEGEN 10-10-2014 [facility]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 7244 THORACIC/RAMANA 10-10-2014 [facility] MBOSACRAL H SLEEP AND NEURITIS/RA REHA DICULITIS UNSPEC 93628 PAIN IN 07-30-2014 [facility] JOINT, [facility] LOWER LEG INC V571 OTHER 07-30-2014 [facility] PHYSICAL [facility] THERAPY INC 4019 UNSPECIFIED 06-01-2014 [facility] HYPERTENSIO AT CENT N 4148 OTHER SPEC 06-01-2014 [facility] FORMS CARDI[facility] CHRONIC AT CENT ISCHEMIC HEART DISEASE 7213 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 JESSICA FARMER SPONDYLOSIS MDPLC WITHOUT MYELOPATHY 2724 OTHER AND 01-27-2014 [facility] UNSPECIFIED [facility] INC HYPERLIPIDE GIBRAN V5869 LONG-TERM 01-27-2014 [facility] (CURRENT) [facility] USE OF INC OTHER MEDICATIONS 4778 ALLERGIC 01-25-2014 SWAP[facility] RHINITIS BRIANNA DUE TO OTHER ALLERGEN 40270 CORONARY 01-19-2014 [facility] OSIS KASIGLUK CORONARY ARTERY 5368 DYSPEPSIA&O 01-19-2014 [facility] THER SPEC HOSPITAL DISORDERS FUNCTION STOMACH 61310 UNSPECIFIED 01-19-2014 [facility] ARTHROPATHY SITE UNSPECIFIED 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 V7651 SPECIAL 01-19-2014 JAKE BRIANNA SCREENING FOR MALIGNANT NEOPLASMS COLON 4011 ESSENTIAL 01-15-2014 [facility] HYPERTENSIO CARDIOLOGY N, BENIGN AT CENT 95458 PES 01-02-2014 DANIEL JACKSON ANSERINUS TENDINITIS OR BURSITIS 03589 OTHER 01-01-2014 SWAPNA CHRONIC BRIANNA ALLERGIC CONJUNCTIVI TIS 4770 ALLERGIC 01-01-2014 SWAP[facility] RHINITIS BRIANNA DUE TO POLLEN 96662 EXTRINSIC 01-01-2014 SWAPNA ASTHMA, BRIANNA UNSPECIFIED 3384 CHRONIC 12-29-2013 FREDI CLEMENS PAIN SYNDROME 92689 OSTEOARTHRO 12-29-2013 FREDI CLEMENS S INVLV MX SITES BUT NOT SPEC GEN V7612 OTHER 11-15-2013 [facility] MAMMOGRAM 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 81637 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 4772 ALLERGIC 10-03-2013 SWAPNA RHINITIS BRIANNA DUE TO ANIMAL HAIR AND DANDER 25045 ASTHMA, 10-03-2013 [facility] UNSPECIFIED EQUIPMENT , INC UNSPECIFIED STATUS V727 DIAGNOSTIC 10-03-2013 SWAPNA SKIN AND BRIANNA SENSITIZATI ON TESTS 3674 PRESBYOPIA 09-29-2013 SCIFRES ANG 55239 ESOPHAGEAL 09-14-2013 FREDI CLEMENS REFLUX 47794 UNS 09-14-2013 FREDI CLEMENS GASTRITIS&G ASTRODUODIT IS [...] 1,25-di hydroxy vitamin D3 Comment: Performed at: [facility] Comment: [address], [place], [place] [id number] Comment: Magnetic Tester: Dhruv Watts MD, Phone: [phone] Serum 10-16-2 < 10 . complet or 017 pg/mL ed plasma 10:15 1,25-di hydroxy vitamin D2 Serum or plasma rheumatoid factor measur (06-14-2017 10:03) Serum 10-16-2 < 10.0 0.0-13. complet or 017 IU/mL 9 ed plasma 10:03 rheumat oid factor measur Comment: Performed at: [facility] Comment: [address], [place] [id number] Comment: Magnetic Tester: Rex Nova PhD, Phone: [phone] CCP IgG + IgA serum ANCELMO (06-14-2017 10:03) CCP IgG 2 = 2 0-19 complet + IgA 017 units ed serum 10:03 ANCELMO Comment: Negative <20 Comment: Weak positive 20 - 39 Comment: Moderate positive 40 - 59 Comment: Strong positive >59 Comment: Performed at: [facility] Comment: [address], [place] [id number] Comment: Magnetic Tester: Med Freeman MD, Phone: [phone] Vitamin B12 ser/plas (06-14-2017 10:03) Vitamin = [phone] complet B12 017 pg/mL ed ser/casey 10:03 s Comment: Performed at: [facility] Comment: [address], [place] [phone] Comment: Magnetic Tester: Rex Nova PhD, Phone: [phone] Comprehensive metabolic panel (06-14-2017 10:03) Protein = [...] SQUARE METERS Comment: If this patient is -[place], then multiply the Comment: result by 1.210. [...] blood 10:03 platele t mean volume lynn Macon % = 4.7 % 1.7-9.3 complet 017 [...] MEDICAL AIRWAY EQUIPME EQUIPME PRESSURE DEVICE CHIROPRAC 99263 SELENE MORTON TIC 5 TIF TIF MANIPULAT TOR TX SPINAL 3-4 REGIONS CHIROPRAC 08914 SELENE MORTON TIC 5 TIF TIF MANIPLTV TX EXTRASPIN AL 1/> REGION CHIROPRAC 85201 SELENE MORTON TIC 5 TIF TIF MANIPLTV TX EXTRASPIN AL 1/> REGION CHIROPRAC 48665 SELENE MORTON TIC 5 TIF TIF MANIPULAT [...] EQUIPME EQUIPME W/POS ARWAY PRESS DEVICE POLYSOM [address] ASIM 6/>YRS 5 EAST EAST SLEEP W/CPAP 4/> ADDL BEE ATTND LUMB L0627 PUMA DORADORELL ORTHOSIS 5 HOME HOME SAGIT MEDICAL MEDICAL CNTRL EQUIPME EQUIPME RIGID A&P PANEL PREFAB TENS E0730 [employer] E96I INC DEVICE 5 4/MORE LEADS MULTI NERVE STIMULATI ON CHIROPRAC 62510 SELENE MORTON TIC 5 TIF TIF MANIPULAT TOR TX SPINAL 3-4 REGIONS CHIROPRAC 83310 SELENE MORTON TIC 5 TIF TIF MANIPLTV [...] MEDICAL AIRWAY EQUIPME EQUIPME PRESSURE DEVICE CHIROPRAC 41452 SELENE MORTON TIC 4 TIF TIF MANIPULAT TOR TX SPINAL 3-4 REGIONS CHIROPRAC 50321 SELENE MORTON TIC 4 TIF TIF MANIPLTV TX EXTRASPIN AL 1/> REGION TENS E0730 [employer] E96I INC DEVICE 4 4/MORE LEADS MULTI NERVE STIMULATI ON THERAPEUT 53000 ANATOLIY COPE IC PX 1/> 4 MEM [...] EQUIPME EQUIPME ARWAY PRESS DEVICE EA APPL 32803 ANATOLIY COPE MODALITY 4 [facility]OS[facility] 1/> AREAS INC INC ELEC STIMJ EA 15 MIN THERAPEUT 59290 ANATOLIY ANATOLIY IC PX 1/> 4 [facility] AREAS INC INC EACH 15 MIN EXERCISES CHIROPRAC 47841 SELENE MORTON TIC 4 TIF TIF MANIPULAT TOR TX SPINAL 3-4 REGIONS CHIROPRA 21568 SELENE MORTON TIC 4 TIF TIF MANIPLTV TX EXTRASPIN AL 1/> REGION THERAPEUT 82788 ANATOLIY ANATOLIY IC PX 1/> 4 [facility] AREAS INC INC EACH 15 MIN EXERCISES THERAPEUT 11221 ANATOLIY ANATOLIY IC PX 1/> 4 [facility] AREAS INC INC EACH 15 MIN EXERCISES CHIROPRAC 97047 SELENE MORTON TIC 4 TIF TIF MANIPULAT TOR TX SPINAL 3-4 REGIONS CHIROPRAC 80287 SELENE MORTON TIC 4 TIF TIF MANIPLTV TX EXTRASPIN AL 1/> REGION CHIROPRAC 40328 SELENE MORTON TIC 4 TIF TIF MANIPLTV TX EXTRASPIN AL 1/> REGION APPL 79888 SELENE MORTON MODALITY 4 TIF TIF 1/> AREAS ELEC STIMJ UNATTENDE D CHIROPRAC 89096 SELENE MORTON TIC 4 TIF TIF MANIPULAT TOR TX SPINAL 3-4 REGIONS CHIROPRAC 81472 SELENE MORTON TIC 4 TIF TIF MANIPULAT TOR TX SPINAL 3-4 REGIONS APPL 63544 SELENE MORTON MODALITY 4 TIF TIF 1/> AREAS ELEC STIMJ UNATTENDE D CHIROPRAC 00741 SELENE MORTON TIC 4 TIF TIF MANIPLTV TX EXTRASPIN AL 1/> REGION APPL 31419 SELENE MORTON MODALITY 4 TIF TIF 1/> AREAS ELEC STIMJ UNATTENDE D CHIROPRAC 27433 SELENE MORTON TIC 4 TIF TIF MANIPLTV TX EXTRASPIN AL 1/> REGION CHIROPRAC 61301 SELENE MORTON TIC 4 TIF TIF MANIPULAT TOR TX SPINAL 3-4 REGIONS CHIROPRAC 29785 SELENE MORTON TIC 4 TIF TIF MANIPULAT TOR TX SPINAL 3-4 REGIONS CHIROPRAC 60161 SELENE MORTON TIC 4 TIF TIF MANIPLTV TX EXTRASPIN AL 1/> REGION APPL 17256 SELENE MORTON MODALITY 4 TIF TIF 1/> AREAS ELEC STIMJ UNATTENDE D RINGERS J7120 JESSICA FARMER LACTATE 4 E. FARMER CRISTY INFUSION MDPLC UP TO 1000 CC RINGERS J7120 JESSICA FARMER LACTATE 4 E. FARMER CRISTY INFUSION MDPLC UP TO 1000 CC LIPID 41793 ANAT[facility]IY COPE PANEL 4 [facility] INC INC HEPATIC 93953 ANATOLIY COPE FUNCTION 4 [facility] PANEL INC INC PROF SVCS 38469 SWAPNA SWAPNA ALLG 4 BRIANNA BRIANNA IMMNTX X W/PRV ALLGIC XTRCS NJXS HUMDIFIR E0562 PUMA BARTHOLOMEW HEATED 4 HOME HOME USED MEDICAL MEDICAL W/POS EQUIPME EQUIPME ARWAY PRESSURE DEVICE ANES 80497 BURBERRY BURBERRY LOWER 4 JEOVANNY JEOVANNY INTESTINE ENDOSCOPY DISTAL DUODENUM PRESSURIZ 63139 [facility] ED/NONP[address] SSURIZED INHALATIO N TREATMENT INJECTION J2001 [address] LIDOCAINE HCL INTRAVENO US INFUS 10 MG COLOREC G[address] SCR; COLNSCPY NOT MEET HI RISK COLONOSCO 06188 JAKE BRIANNA JAKE BRIANNA PY FLX DX 4 W/COLLJ SPEC WHEN PFRMD APPLICATI 58368 ANATOLIY COPE ON 4 [facility] MODALITY INC INC 1/> AREAS HOT/COLD PACKS APPL 81331 ANATOLIY COPE MODALITY 4 [facility] 1/> AREAS INC INC ULTRASOUN D EA 15 MIN THERAPEUT 61957 ANATOLIY COPE IC PX 1/> 4 [facility] AREAS INC INC EACH 15 MIN EXERCISES APPL 32934 ANATOLIY COPE MODALITY 4 [facility]OS[facility] 1/> AREAS INC INC ELEC STIMJ UNATTENDE D PHYSICAL 16391 ANATOLIY HENDERSON THERAPY 4 [facility] ELISHA EVALUATIO INC N PREPJ& 91951 SWAPNA SWAPNA ALLERGEN 4 BRIANNA BRIANNA IMMUNOTHE RAPY 1/DECK HAND ANTIGEN HEADGEAR A7035 PUMA BARTHOLOMEW USED 4 [...] EQUIPME EQUIPME ARWAY PRESS DEVICE EA RADIOLOGI 52422 DANIEL SANCHEZ C EXAM 4 JACKSON JACKSON KNEE COMPLETE 4/MORE VIEWS SPMTRY 38062 SWAPNA SWAPNA W/VC 4 BRIANNA BRIANNA EXPIRATOR Y CELESTE W/WO MXML VOL VNTJ MANUAL 32673 VIDYA DASILVA THERAPY 4 COL COL TQS 1/> REGIONS EACH 15 MINUTES CHIROPRAC 17174 VIDYA DASILVA TIC 4 COL COL MANIPULAT TOR TX SPINAL 3-4 REGIONS MANUAL 32426 VIDYA DASILVA THERAPY 4 COL COL TQS 1/> REGIONS EACH 15 MINUTES APPL 29072 VIDYA DASILVA MODALITY 4 COL COL 1/> AREAS TRACTION MECHANICA L CHIROPRAC 71008 VIDYA DASILVA TIC 4 COL COL MANIPULAT TOR TX SPINAL 3-4 REGIONS APPL 59914 VIDYA COTTERON MODALITY 4 COL COL 1/> AREAS ELEC STIMJ UNATTENDE D [facility] [address] [facility] 4 [facility] DETECTION SCREENING MAMMOGRAP HY SCREENING G[address] MAMMOGRAP HY RICHY INCL CAD WHEN PERFORMD MANUAL 49856 VIDYA COTTERON THERAPY 4 COL COL TQS 1/> REGIONS EACH 15 MINUTES CHIROPRAC 24358 VIDYA DASILVA TIC 4 COL COL MANIPULAT TOR TX SPINAL 3-4 REGIONS APPL 73635 VIDYA COTTERON MODALITY 4 COL COL 1/> AREAS ELEC STIMJ UNATTENDE D APPL 70164 VIDYA DASILVA MODALITY 4 COL COL 1/> AREAS TRACTION MECHANICA L APPL 87691 VIDYA DASILVA MODALITY 4 COL COL 1/> AREAS ELEC STIMJ UNATTENDE D CHIROPRAC 65523 VIDYA DASILVA TIC 4 COL COL MANIPULAT TOR TX SPINAL 3-4 REGIONS APPL 21899 VIDYA COTTERON MODALITY 4 COL COL 1/> AREAS TRACTION MECHANICA L MANUAL 19789 VIDYA COTTERON THERAPY 4 COL COL TQS 1/> REGIONS EACH 15 MINUTES MANUAL 19247 VIDYA COTTERON THERAPY 4 COL COL TQS 1/> REGIONS EACH 15 MINUTES CHIROPRAC 76032 VIDYA DASILVA TIC 4 COL COL MANIPULAT TOR TX SPINAL 3-4 REGIONS APPL 99988 VIDYA COTTERON MODALITY 4 COL COL 1/> AREAS TRACTION MECHANICA L DRUG SCR G0434 [facility] NOT 4 CHROMATOG RAPHIC; ANY NUMBER PT ENC APPL 63579 VIDYA COTTERON MODALITY 4 COL COL 1/> AREAS ELEC STIMJ UNATTENDE D SPACR A4627 MT MED MT MED BAG/RESRV 4 EQUIPMENT EQUIPMENT OR W/WO INC INC MASK W/METRD DOSE INHAL PERCUTANE 64362 SWAPNA SWAPNA OUS TESTS 4 BRIANNA BRIANNA W/ALLERGE ANCA EXTRACTS INTRACUTA 44089 SWAPNA SWAPNA NEOUS 4 BRIANNA BRIANNA TESTS W/ALLERGE ANCA EXTRACTS DEMO&/HYUN 64680 SWAPNA SWAPNA L OF PT 4 BRIANNA BRIANNA UTILIZ AERSL GEN/NEB/I NHLR/IP BRNCDILAT 76730 SWAPNA SWAPNA RSPSE 4 BRIANNA BRIANNA SPMTRY PRE&POST- BRNCDILAT ADMN PRESSURIZ 28208 SWAPNA SWAPNA ED/NONPRE 4 BRIANNA BRIANNA SSURIZED INHALATIO N TREATMENT TUBING A7037 SWAPNA SWAPNA USED WITH 4 BRIANNA BRIANNA POSITIVE AIRWAY PRESSURE DEVICE DETERMINA 86727 SCIFRES SCIFRES TION 4 ANG ANG REFRACTIV E STATE OPHTH 15244 SCIFRES SCIFRES MEDICAL 4 ANG ANG XM&EVAL COMPRE NEW PT 1/> VST APPL 79888 VIDYA DASILVA MODALITY 4 COL COL 1/> AREAS TRACTION MECHANICA L DRUG SCR G0434 [facility] NOT 4 CHROMATOG RAPHIC; ANY NUMBER PT ENC CHIROPRAC 15758 VIDYA DASILVA TIC 4 COL COL MANIPULAT TOR TX SPINAL 3-4 REGIONS MANUAL 33291 VIDYA DASILVA THERAPY 4 COL COL TQS 1/> REGIONS EACH 15 MINUTES APPLICATI 01615 VIDYA DASILVA ON 4 COL COL MODALITY 1/> AREAS HOT/COLD PACKS APPL 91638 VIDYA DASILVA MODALITY 4 COL COL 1/> [...] Date Code Location Performer Type Date OFFICE 28263 [facility] SELENE OUTPATIEN 5 5 TIF [facility] T VISIT 10 MINUTES OFFICE 48487 DILSHADRip ZO ALLEN OUTPATIEN 5 5 [facility] SLEEP JUSTIN T VISIT AND REHA 15 MINUTES HOSPITAL [facility] - 5 5 [facility] 4 5 [facility] - 4 4 [facility] OUTPATIEN [facility] OFFICE 49088 [facility] OUTPATIEN 4 4 NAZANIN VISIT CARDIOLOG 15 Y AT CENT MINUTES OFFICE 51320 [facility] SELENE OUTPATIEN 4 4 TIF TIF T NEW 30 MINUTES HOSPITAL ANATOLIY - 4 4 [facility]IEN [facility] - 4 4 [facility] 87656 [facility] OUTPATIEN 4 4 NAZANIN T VISIT CARDIOLOG 15 Y AT CENT MINUTES HOSPITAL ANATOLIY - 4 4 [facility] OUTPATIEN [facility] OFFICE 02564 DANIEL SANCHEZ CONSULTAT 4 4 JACKSON RODRIGUEZ NEW/ESTAB PATIENT 60 MIN OFFICE 99095 SWAPNA SWAPNA OUTPATIEN 4 4 BRIANNA BRIANNA T VISIT 25 MINUTES OFFICE 34644 FREDI RAI OUTPATIEN 4 4 SARATH SARATH T VISIT 15 MINUTES OFFICE 19345 [facility] OUTPATIEN 4 4 T VISIT 15 MINUTES OFFICE 34816 VIDYA DASILVA OUTPATIEN 4 4 COL COL T VISIT 10 MINUTES OFFICE 26269 [facility] JERAMIE [facility] OUTPATIEN 4 4 T VISIT 15 MINUTES OFFICE 28930 [facility] OUTPATIEN 4 4 T VISIT 15 MINUTES [facility] - 4 4 EAST OUTPATIEN T OFFICE 31254 [facility] OUTPATIEN 4 4 T VISIT 15 MINUTES OFFICE 13418 MARTÍNEZ SOLIZ OUTPATIEN 4 4 NAZANIN NAZANIN T NEW 30 MINUTES OFFICE 80919 [facility] OUTPATIEN 4 4 T VISIT 15 MINUTES OFFICE 48476 [facility] JERAMIE [facility] OUTPATIEN 4 4 T VISIT 15 MINUTES OFFICE 07864 SWAPNA SWAPNA CONSULTAT 4 4 BRIANNA BRIANNA ION NEW/ESTAB PATIENT 80 MIN OFFICE 05967 [facility] OUTPATIEN 4 4 T NEW 45 MINUTES OFFICE 27387 VIDYA VIDYA OUTPATIEN 4 4 COL COL T NEW 20 MINUTES OFFICE 42838 FREDI RAI OUTPATIEN 4 4 SARATH SARATH T VISIT 15 MINUTES OFFICE 07703 FREDI RAI OUTPATIEN 4 4 SARATH SARATH T VISIT 15 MINUTES
--- OUTSIDE RECORDS SUMMARY | 2017-06-20 14:01 | External Medical Summary Rpt | CCD ---
Demographics Preferred Language Moroccan Marital Status Unknown Congregation Affiliation Unknown Race Unknown Ethnic Group Unknown Author Author , JASS REGAN Address Unknown Phone Immunization No patient found.
--- OUTSIDE RECORDS SUMMARY | 2017-06-20 14:01 | External Medical Summary Rpt | CCD ---
Demographics Preferred Language Taiwanese Marital Status Unknown Confucianism Affiliation Unknown Race Unknown Ethnic Group Unknown Author Author , JASS REGAN Address Unknown Phone Immunization No patient found.
--- OUTSIDE RECORDS SUMMARY | 2017-06-20 14:01 | External Medical Summary Rpt | CCD ---
Author Author , JASS Organization JASS Address Unknown Phone [email or web address] Care Team Providers Care Floorleader Name Role Phone FREDI SARATH, FREDI Unavailable Unavailable SARATH FREDI SARATH, ARNOLD Unavailable Unavailable SARATH VIDYA COL, Unavailable Unavailable VIDYA COL BOLIEK NAZANIN, BOLIEK Unavailable Unavailable NAZANIN SOLIZ NAZANIN, SOLIZ Unavailable Unavailable NAZANIN SOLIZ NAZANIN, SOLIZ Unavailable Unavailable NAZANIN BURBERRY JEOVANNY, Unavailable Unavailable BURBERRY JEOVANNY [facility] Unavailable Unavailable AND REHA, [facility]HA MORTON TIF, MORTON [...] 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 AT [facility], [facility] ROCIO BOBO, ROCIO BOBO Unavailable Unavailable [...] Unavailable Unavailable EQUIPME, [facility], Unavailable Unavailable [facility] Unavailable Unavailable [facility] JAKE BRIANNA, JAKE BRIANNA Unavailable Unavailable JAKE BRIANNA, JAKE BRIANNA Unavailable Unavailable DANIEL CAGLE Unavailable Unavailable DANIEL TOM Unavailable Unavailable JACKSON Purpose Continuity of Care Document - 09-07-2013 through 2016 Problems Code Diagnosis DOS Provider Status 37590 SPINAL 12-27-2014 [facility] STENOSIS UNSPEC REGION OTH THAN CERVICAL 7245 UNSPECIFIED 12-27-2014 [facility] BACKACHE 77915 OBSTRUCTIVE 11-26-2014 [facility] APNEA MEDICAL [...] LUMBAR 11-15-2014 SELENE DEVINE SPRAIN AND STRAIN 14144 DEGEN 10-10-2014 [facility]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 7244 THORACIC/RAMANA 10-10-2014 [facility] MBOSACRAL H SLEEP AND NEURITIS/RA REHA DICULITIS UNSPEC 17891 PAIN IN 07-30-2014 [facility] JOINT, [facility] LOWER LEG INC V571 OTHER 07-30-2014 [facility] PHYSICAL [facility] THERAPY INC 4019 UNSPECIFIED 06-01-2014 [facility] HYPERTENSIO AT CENT N 4148 OTHER SPEC 06-01-2014 [facility] FORMS [facility]ARDI[facility] CHRONIC AT CENT ISCHEMIC HEART DISEASE 7213 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 JESSICA FARMER SPONDYLOSIS [facility]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 MYELOPATHY 2724 OTHER AND 01-27-2014 [facility] UNSPECIFIED [facility] INC HYPERLIPIDE GIBRAN V5869 LONG-TERM 01-27-2014 [facility] (CURRENT) [facility] USE OF INC OTHER MEDICATIONS 4778 ALLERGIC 01-25-2014 [facility] RHINITIS BRIANNA DUE TO OTHER ALLERGEN 07583 CORONARY 01-19-2014 [facility] OSIS QAWALANGIN CORONARY ARTERY 5368 DYSPEPSIA&O 01-19-2014 [facility] THER SPEC HOSPITAL DISORDERS FUNCTION STOMACH 41311 UNSPECIFIED 01-19-2014 [facility] ARTHROPATHY SITE UNSPECIFIED 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 UNSPEC V7651 SPECIAL 01-19-2014 JAKE BRIANNA SCREENING FOR MALIGNANT NEOPLASMS COLON 4011 ESSENTIAL 01-15-2014 [facility] HYPERTENSIO CARDIOLOGY N, BENIGN AT CENT 04465 PES 01-02-2014 DANIEL JACKSON ANSERINUS TENDINITIS OR BURSITIS 69184 OTHER 01-01-2014 [facility] CHRONIC BRIANNA ALLERGIC CONJUNCTIVI TIS 4770 ALLERGIC 01-01-2014 [facility] RHINITIS BRIANNA DUE TO POLLEN 77121 EXTRINSIC 01-01-2014 [facility] ASTHMA, BRIANNA UNSPECIFIED 3384 CHRONIC 12-29-2013 FREDI CLEMENS PAIN SYNDROME 84722 OSTEOARTHRO 12-29-2013 FERDI CLEMENS S INVLV MX SITES BUT NOT SPEC GEN V7612 OTHER 11-15-2013 [facility] MAMMOGRAM 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 98515 DEGEN 10-24-2013 MARTÍNEZ NAZANIN THORACIC/TH ORACOLUMBAR INTERVERTEB RAL DISC 4772 ALLERGIC 10-03-2013 [facility] RHINITIS BRIANNA DUE TO ANIMAL HAIR AND DANDER 11545 ASTHMA, 10-03-2013 [facility] UNSPECIFIED EQUIPMENT , INC UNSPECIFIED STATUS V727 DIAGNOSTIC 10-03-2013 [facility] SKIN AND BRIANNA SENSITIZATI ON TESTS 3674 PRESBYOPIA 09-29-2013 SCIFRES ANG 47946 ESOPHAGEAL 09-14-2013 FREDI CLEMENS REFLUX 31980 UNS 09-14-2013 FREDI CLEMENS GASTRITIS&G ASTRODUODIT IS [...] MEDICAL AIRWAY EQUIPME EQUIPME PRESSURE DEVICE CHIROPRAC 30173 SELENE MORTON TIC 5 TIF TIF MANIPULAT TOR TX SPINAL 3-4 REGIONS CHIROPRAC 87655 SELENE MORTON TIC 5 TIF TIF MANIPLTV TX EXTRASPIN AL 1/> REGION CHIROPRAC 83078 SELENE MORTON TIC 5 TIF TIF MANIPLTV TX EXTRASPIN AL 1/> REGION CHIROPRAC 87427 SELENE MORTON TIC 5 TIF TIF MANIPULAT [...] W/POS EQUIPME EQUIPME ARWAY PRESSURE DEVICE POLYSOM 68172 [facility] ST ASIM 6/>YRS 5 EAST EAST SLEEP W/CPAP 4/> ADDL BEE ATTND LUMB L0627 [facility] ORTHOSIS 5 HOME HOME SAGIT MEDICAL MEDICAL CNTRL EQUIPME EQUIPME RIGID A&P PANEL PREFAB TENS E0730 E[facility] INC EMPI INC DEVICE 5 4/MORE LEADS MULTI NERVE STIMULATI ON CHIROPRAC 47334 SELENE MORTON TIC 5 TIF TIF MANIPULAT TOR TX SPINAL 3-4 REGIONS CHIROPRAC 67120 SELENE MORTON TIC 5 TIF TIF MANIPLTV [...] MEDICAL AIRWAY EQUIPME EQUIPME PRESSURE DEVICE CHIROPRAC 68071 SELENE MORTON TIC 4 TIF TIF MANIPULAT TOR TX SPINAL 3-4 REGIONS CHIROPRAC 53819 SELENE MORTON TIC 4 TIF TIF MANIPLTV TX EXTRASPIN AL 1/> REGION TENS E0730 EMP[facility] INC EMPI INC DEVICE 4 4/MORE LEADS MULTI NERVE STIMULATI ON THERAPEUT 54355 ANATOLIY COPE IC PX 1/> 4 MEM [...] W/POS EQUIPME EQUIPME ARWAY PRESSURE DEVICE THERAPEUT 72051 ANATOLIY [place] IC PX 1/> 4 [facility] AREAS INC INC EACH 15 MIN EXERCISES APPL 64594 ANATOLIY ANATOLIY MODALITY 4 [facility] 1/> AREAS INC INC ELEC STIMJ EA 15 MIN CHIROPRAC 35884 SELENE MORTON TIC 4 TIF TIF MANIPULAT TOR TX SPINAL 3-4 REGIONS CHIROPRAC 44973 SELENE MORTON TIC 4 TIF TIF MANIPLTV TX EXTRASPIN AL 1/> REGION THERAPEUT 25843 ANATOLIY COPE IC PX 1/> 4 [facility] AREAS INC INC EACH 15 MIN EXERCISES THERAPEUT 19227 ANATOLIY ANATOLIY IC PX 1/> 4 [facility] AREAS INC INC EACH 15 MIN EXERCISES CHIROPRAC 23298 SELENE MORTON TIC 4 TIF TIF MANIPULAT TOR TX SPINAL 3-4 REGIONS CHIROPRAC 97557 SELENE MORTON TIC 4 TIF TIF MANIPLTV TX EXTRASPIN AL 1/> REGION APPL 18512 SELENE MORTON MODALITY 4 TIF TIF 1/> AREAS ELEC STIMJ UNATTENDE D CHIROPRAC 90346 SELENE MORTON TIC 4 TIF TIF MANIPLTV TX EXTRASPIN AL 1/> REGION CHIROPRAC 76106 SELENE MORTON TIC 4 TIF TIF MANIPULAT TOR TX SPINAL 3-4 REGIONS CHIROPRAC 40365 SELENE MORTON TIC 4 TIF TIF MANIPULAT TOR TX SPINAL 3-4 REGIONS CHIROPRAC 12788 SELENE MORTON TIC 4 TIF TIF MANIPLTV TX EXTRASPIN AL 1/> REGION APPL 26577 SELENE MORTON MODALITY 4 TIF TIF 1/> AREAS ELEC STIMJ UNATTENDE D APPL 98770 SELENE MORTON MODALITY 4 TIF TIF 1/> AREAS ELEC STIMJ UNATTENDE D CHIROPRAC 33358 SELENE MROTON TIC 4 TIF TIF MANIPLTV TX EXTRASPIN AL 1/> REGION CHIROPRAC 99443 SELENE MORTON TIC 4 TIF TIF MANIPULAT TOR TX SPINAL 3-4 REGIONS CHIROPRAC 42230 SELENE MORTON TIC 4 TIF TIF MANIPULAT TOR TX SPINAL 3-4 REGIONS CHIROPRAC 42136 SELENE MORTON TIC 4 TIF TIF MANIPLTV TX EXTRASPIN AL 1/> REGION APPL 19680 SELENE MORTON MODALITY 4 TIF TIF 1/> AREAS ELEC STIMJ UNATTENDE D RINGERS J7120 JESSICA FARMER LACTATE 4 E. FARMER CRISTY INFUSION MDPLC UP TO 1000 CC RINGERS J7120 JESSICA FARMER LACTATE 4 E. FARMER CRISTY INFUSION MDPLC UP TO 1000 CC LIPID 81455 ANAT[facility] COPE PANEL 4 [facility] INC INC HEPATIC 68800 ANATOLIY COPE FUNCTION 4 [facility]OS[facility] PANEL INC INC PROF SVCS 91057 SWAPNA SWAPNA ALLG 4 BRIANNA BRIANNA IMMNTX X W/PRV ALLGIC XTRCS NJXS HUMDIFIR E0562 [facility] BARTHOLOMEW HEATED 4 HOME HOME USED MEDICAL MEDICAL W/POS EQUIPME EQUIPME ARWAY PRESSURE DEVICE PRESSURIZ 62763 [facility] ED/NONPRE [address] [place] [address] SSURIZED INHALATIO N TREATMENT INJECTION J[address] LIDOCAINE HCL INTRAVENO US INFUS 10 MG COLOREC G[address] SCR; COLNSCPY NOT MEET HI RISK ANES 03625 BURBERRY BURBERRY LOWER 4 JEOVANNY JEOVANNY INTESTINE ENDOSCOPY DISTAL DUODENUM COLONOSCO 40630 JAKE BRIANNA JAKE BRIANNA PY FLX DX 4 W/COLLJ SPEC WHEN PFRMD APPLICATI 23574 [facility]AT[facility] COPE ON 4 [facility] MODALITY INC INC 1/> AREAS HOT/COLD PACKS APPL 32378 ANATOLIY COPE MODALITY 4 [facility] 1/> AREAS INC INC ULTRASOUN D EA 15 MIN APPL 56932 ANATOLIY COPE MODALITY 4 [facility] 1/> AREAS INC INC ELEC STIMJ UNATTENDE D THERAPEUT 83530 ANATOLIY COPE IC PX 1/> 4 [facility] AREAS INC INC EACH 15 MIN EXERCISES PHYSICAL 36215 ANATOLIY HENDERSON THERAPY 4 [facility] ELISHA EVALUATIO INC N PREPJ& 65250 SWAPNA LARSENHBURN ALLERGEN 4 BRIANNA BRIANNA IMMUNOTHE 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 A7038 PUMA PUMA DISPBL 4 HOME HOME USED MEDICAL MEDICAL W/POS EQUIPME EQUIPME ARWAY PRESSURE DEVICE FILTER A7039 PUMA PUMA NON 4 HOME HOME DISPBL MEDICAL MEDICAL USED EQUIPME EQUIPME W/POS ARWAY PRESS DEVICE FULL FACE A7030 PUMA PUMA MASK 4 HOME HOME USED MEDICAL MEDICAL W/POS EQUIPME EQUIPME ARWAY PRESS DEVICE EA TUBING A7037 PUMA PUMA USED WITH 4 HOME HOME POSITIVE MEDICAL MEDICAL AIRWAY EQUIPME EQUIPME PRESSURE DEVICE HEADGEAR A7035 PUMA PUMA USED 4 HOME HOME W/POSITIV MEDICAL MEDICAL E AIRWAY EQUIPME EQUIPME PRESSURE DEVICE RADIOLOGI 98669 DANIEL SANCHEZ C EXAM 4 JACKSON JACKSON KNEE COMPLETE 4/MORE VIEWS SPMTRY 56139 SWAPNA SWAPNA W/VC 4 BRIANNA BRIANNA EXPIRATOR Y CELESTE W/WO MXML VOL VNTJ CHIROPRAC 38056 VIDYA DASILVA TIC 4 COL COL MANIPULAT TOR TX SPINAL 3-4 REGIONS MANUAL 11554 VIDYA DASILVA THERAPY 4 COL COL TQS 1/> REGIONS EACH 15 MINUTES CHIROPRAC 65358 VIDYA DASILVA TIC 4 COL COL MANIPULAT TOR TX SPINAL 3-4 REGIONS MANUAL 71070 VIDYA COTTERON THERAPY 4 COL COL TQS 1/> REGIONS EACH 15 MINUTES APPL 70746 VIDYA COTTERON MODALITY 4 COL COL 1/> AREAS TRACTION MECHANICA L APPL 91474 VIDYA HOPKINSESON MODALITY 4 COL COL 1/> AREAS ELEC STIMJ UNATTENDE D SCREENING G0202 [address] MAMMOGRAP HY RICHY INCL CAD WHEN PERFORMD 60903 [facility] AIDED 4 [facility] DETECTION SCREENING MAMMOGRAP HY APPL 35752 VIDYA COTTERON MODALITY 4 COL COL 1/> AREAS ELEC STIMJ UNATTENDE D APPL 61850 VIDYA COTTERON MODALITY 4 COL COL 1/> AREAS TRACTION MECHANICA L MANUAL 76304 VIDYA COTTERON THERAPY 4 COL COL TQS 1/> REGIONS EACH 15 MINUTES CHIROPRAC 01086 VIDYA DASILVA TIC 4 COL COL MANIPULAT TOR TX SPINAL 3-4 REGIONS CHIROPRAC 90405 VIDYA COTTERON TIC 4 COL COL MANIPULAT TOR TX SPINAL 3-4 REGIONS MANUAL 93879 VIDYA COTTERON THERAPY 4 COL COL TQS 1/> REGIONS EACH 15 MINUTES APPL 19626 VIDYA COTTERON MODALITY 4 COL COL 1/> AREAS TRACTION MECHANICA L APPL 59835 VIDYA COTTERON MODALITY 4 COL COL 1/> AREAS ELEC STIMJ UNATTENDE D APPL 45982 VIDYA COTTERON MODALITY 4 COL COL 1/> AREAS ELEC STIMJ UNATTENDE D APPL 74545 VIDYA COTTERON MODALITY 4 COL COL 1/> AREAS TRACTION MECHANICA L MANUAL 52307 VIDYA HOPKINSESON THERAPY 4 COL COL TQS 1/> REGIONS EACH 15 MINUTES DRUG SCR G0434 ROC[facility] H[facility] ROC[facility] NOT 4 CHROMATOG RAPHIC; ANY NUMBER PT ENC CHIROPRAC 13997 VIDYA DASILVA TIC 4 COL COL MANIPULAT TOR TX SPINAL 3-4 REGIONS SPACR A4627 MT MED MT MED BAG/RESRV 4 EQUIPMENT EQUIPMENT OR W/WO INC INC MASK W/METRD DOSE INHAL DEMO&/HYUN 33558 SWAPNA SWAPNA L OF PT 4 BRIANNA BRIANNA UTILIZ AERSL GEN/NEB/I NHLR/IP TUBING A7037 SWAPNA SWAPNA USED WITH 4 BRIANNA BRIANNA POSITIVE AIRWAY PRESSURE DEVICE BRNCDILAT 55432 SWAPNA SWAPNA RSPSE 4 BRIANNA BRIANNA SPMTRY PRE&POST- BRNCDILAT ADMN PRESSURIZ 48841 SWAPNA SWAPNA ED/NONPRE 4 BRIANNA BRIANNA SSURIZED INHALATIO N TREATMENT PERCUTANE 97156 SWAPNA SWAPNA OUS TESTS 4 BRIANNA BRIANNA W/ALLERGE ANCA EXTRACTS INTRACUTA 69200 SWAPNA SWAPNA NEOUS 4 BRIANNA BRIANNA TESTS W/ALLERGE ANCA EXTRACTS DETERMINA 92083 SCIFRES SCIFRES TION 4 ANG ANG REFRACTIV E STATE OPHTH 35391 SCIFRES SCIFRES MEDICAL 4 ANG ANG XM&EVAL COMPRE NEW PT 1/> VST APPL 33398 VIDYA DASILVA MODALITY 4 COL COL 1/> AREAS ELEC STIMJ UNATTENDE D APPL 11035 VIDYA COTTERON MODALITY 4 COL COL 1/> AREAS TRACTION MECHANICA L CHIROPRAC 22712 VIDYA DASILVA TIC 4 COL COL MANIPULAT TOR TX SPINAL 3-4 REGIONS DRUG SCR G0434 ROCIO HAM ROC[facility] NOT 4 CHROMATOG RAPHIC; ANY NUMBER PT ENC MANUAL 50919 VIDYA DASILVA THERAPY 4 COL COL TQS 1/> REGIONS EACH 15 MINUTES APPLICATI 98808 VIDYA DASILVA ON 4 COL COL MODALITY 1/> AREAS HOT/COLD PACKS FILTER A7039 PUMA BARTHOLOMEW NON 4 HOME HOME DISPBL MEDICAL MEDICAL USED EQUIPME EQUIPME W/POS ARWAY PRESS DEVICE FILTER A7038 PUMA PUMA DISPBL 4 HOME HOME USED MEDICAL MEDICAL W/POS EQUIPME EQUIPME ARWAY PRESSURE DEVICE TUBING A7037 PUMA BARTHOLOMEW USED WITH 4 HOME HOME POSITIVE MEDICAL MEDICAL AIRWAY EQUIPME EQUIPME PRESSURE DEVICE NASL A7034 PUMA BARTHOLOMEW INTRFCE 4 HOME HOME POS ARWAY MEDICAL MEDICAL PRSS EQUIPME EQUIPME DEVC W/WO HEAD STRAP HEADGEAR A7035 PUMA BARTHOLOMEW USED 4 HOME HOME W/POSITIV MEDICAL MEDICAL E AIRWAY EQUIPME EQUIPME PRESSURE DEVICE Encounters Encounter Start End Date Code Location Performer Type Date OFFICE 09430 SELENE MORTON OUTPATIEN 5 5 [facility] T VISIT 10 MINUTES OFFICE 90933 LALO PATHAK II OUTPATIEN 5 5 [facility] SLEEP JUSTIN T [facility]ISIT AND REHA 15 MINUTES [facility] - [address] [facility] ANATOLIY - 4 5 [facility] - 4 4 [facility] VISIT CARDIOLOG 15 Y AT CENT MINUTES OFFICE 89161 SELENE SELENE OUTPATIEN 4 4 TIF TIF T NEW 30 MINUTES HOSPITAL ANATOLIY - 4 4 [facility]EN [facility] - 4 4 [facility] 21007 [facility] OUTPATIEN 4 4 NAZANIN VISIT CARDIOLOG 15 Y AT CENT MINUTES HOSPITAL AN[facility] - 4 4 [facility] OFFICE 63948 DANIEL SANCHEZ CONSULTAT 4 4 JACKSON RODRIGUEZ NEW/ESTAB PATIENT 60 MIN OFFICE 60839 SWAPNA BARCENAS OUTPATIEN 4 4 BRIANNA REED T VISIT 25 MINUTES OFFICE 59247 FREDI RAI OUTPATIEN 4 4 SARATH SARATH T VISIT 15 MINUTES OFFICE 74425 ROCIOREGLA [facility]AN [facility]AM OUTPATIEN 4 4 T VISIT 15 MINUTES OFFICE 61456 VIDYA DASILVA OUTPATIEN 4 4 COL COL T VISIT 10 MINUTES OFFICE 32724 ROCIO JERAMIE [facility] OUTPATIEN 4 4 T VISIT 15 MINUTES OFFICE 57128 ROCIOREGLA BOBO [facility] OUTPATIEN 4 4 T VISIT 15 MINUTES [facility] - 4 4 [facility] OUTPATIEN T OFFICE 05956 ROCIOREGLA BOBO [facility] OUTPATIEN 4 4 T VISIT 15 MINUTES OFFICE 67312 MARTÍNEZ SOLIZ OUTPATIEN 4 4 NAZANIN NAZANIN T NEW 30 MINUTES OFFICE 37515 [facility] JERAMIE [facility] OUTPATIEN 4 4 T VISIT 15 MINUTES OFFICE 84932 ROC[facility] OUTPATIEN 4 4 T VISIT 15 MINUTES OFFICE 90279 SWAPNA BARCENAS CONSULTAT 4 4 BRIANNA BRIANNA ION NEW/ESTAB PATIENT 80 MIN OFFICE 70430 VIDYA DASILVA OUTPATIEN 4 4 COL COL T NEW 20 MINUTES OFFICE 11343 ROCIO JERAMIE [facility] OUTPATIEN 4 4 T NEW 45 MINUTES OFFICE 73953 ABDULKADIRRODRIGUE ABDULKADIRRODRIGUE OUTPATIEN 4 4 SARATH SARATH T VISIT 15 MINUTES OFFICE 63218 FREDI RAI OUTPATIEN 4 4 SARATH SARATH T VISIT 15 MINUTES
--- OUTSIDE RECORDS SUMMARY | 2017-06-20 14:01 | External Medical Summary Rpt | CCD ---
Author Author , JASS Organization JASS Address Unknown Phone [email or web address] Website [email or web address] Care Team Providers Care Export Specialist Name Role Phone FREDI SARATH, FREDI Unavailable Unavailable SARATH FREDI SARATH, ARNOLD Unavailable Unavailable SARATH VIDYA COL, Unavailable Unavailable VIDYA COL BOLIEK NAZANIN, BOLIEK Unavailable Unavailable NAZANIN SOLIZ NAZANIN, SOLIZ Unavailable Unavailable NAZANIN SOLIZ NAZANIN, SOLIZ Unavailable Unavailable NAZANIN BURBERRY JEOVANNY, Unavailable Unavailable BURBERRY JEOVANNY [facility] Unavailable Unavailable AND REHA, [facility] AND REHA [place] TIF, [...] 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 AT [facility], [facility] AT [facility] ROCIO BOBO, ROCIO BOBO Unavailable Unavailable SWAPNA [...] Unavailable Unavailable EQU[facility], [facility], Unavailable Unavailable [facility] Unavailable Unavailable [facility] JAKE BRIANNA, JAKE BRIANNA Unavailable Unavailable JAKE BRIANNA, JAKE BRIANNA Unavailable Unavailable DANIEL CAGLE Unavailable Unavailable DANIEL TOM Unavailable Unavailable JACKSON Purpose Continuity of Care Document - 09-07-2013 through 2016 Problems Code Diagnosis DOS Provider Status 03931 SPINAL 12-27-2014 [facility] STENOSIS UNSPEC REGION OTH THAN CERVICAL 7245 UNSPECIFIED 12-27-2014 [facility] BACKACHE 14532 OBSTRUCTIVE 11-26-2014 [facility]NEA MEDICAL [...] LUMBAR 11-15-2014 SELENE DEVINE SPRAIN AND STRAIN 85699 DEGEN 10-10-2014 [facility]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 7244 THORACIC/RAMANA 10-10-2014 [facility] MBOSACRAL H SLEEP AND NEURITIS/RA REHA DICULITIS UNSPEC 18320 PAIN IN 07-30-2014 [facility] JOINT, [facility] LOWER LEG INC V571 OTHER 07-30-2014 [facility] PHYSICAL [facility] THERAPY INC 4019 UNSPECIFIED 06-01-2014 [facility] ESSENTIAL CARDIOLOGY HYPERTENSIO AT CENT N 4148 OTHER SPEC 06-01-2014 [facility] FORMS CARDIOLOGY CHRONIC AT CENT ISCHEMIC HEART DISEASE 7213 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 JESSICA FARMER SPONDYLOSIS [facility] WITHOUT MYELOPATHY 2724 OTHER AND 01-27-2014 [facility] UNSPECIFIED [facility] INC HYPERLIPIDE GIBRAN V5869 LONG-TERM 01-27-2014 [facility] (CURRENT) [facility] USE OF INC OTHER MEDICATIONS 4778 ALLERGIC 01-25-2014 [facility] RHINITIS BRIANNA DUE TO OTHER ALLERGEN 52750 CORONARY 01-19-2014 [facility] OSIS WILTON CORONARY ARTERY 5368 DYSPEPSIA&O 01-19-2014 [facility] SPE[facility]OSPITAL DISORDERS FUNCTION STOMACH 13163 UNSPECIFIED 01-19-2014 [facility] ARTHROPATHY SITE UNSPECIFIED 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 V7651 SPECIAL 01-19-2014 JAKE BRIANNA SCREENING FOR MALIGNANT NEOPLASMS COLON 4011 ESSENTIAL 01-15-2014 [facility] HYPERTENSIO CARDIOLOGY N, BENIGN AT CENT 76926 PES 01-02-2014 DANIEL JACKSON ANSERINUS TENDINITIS OR BURSITIS 61219 OTHER 01-01-2014 [facility] CHRONIC BRIANNA ALLERGIC CONJUNCTIVI TIS 4770 ALLERGIC 01-01-2014 [facility] RHINITIS BRIANNA DUE TO POLLEN 32637 EXTRINSIC 01-01-2014 [facility] ASTHMA, BRIANNA UNSPECIFIED 3384 CHRONIC 12-29-2013 FREDI CLEMENS PAIN SYNDROME 42613 OSTEOARTHRO 12-29-2013 FREDI CLEMENS S INVLV MX SITES BUT NOT SPEC GEN V7612 OTHER 11-15-2013 [facility] MAMMOGRAM 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 27433 DEGEN 10-24-2013 [facility] NAZANIN THORACIC/TH ORACOLUMBAR INTERVERTEB RAL DISC 4772 ALLERGIC 10-03-2013 [facility] RHINITIS BRIANNA DUE TO ANIMAL HAIR AND DANDER 48918 ASTHMA, 10-03-2013 [facility] UNSPECIFIED EQUIPMENT , INC UNSPECIFIED STATUS V727 DIAGNOSTIC 10-03-2013 [facility] SKIN AND BRIANNA SENSITIZATI ON TESTS 3674 PRESBYOPIA 09-29-2013 SCIFRES ANG 78286 ESOPHAGEAL 09-14-2013 FREDI CLEMENS REFLUX 53682 UNS 09-14-2013 FREDI CLEMENS GASTRITIS&G ASTRODUODIT IS [...] MEDICAL AIRWAY EQUIPME EQUIPME PRESSURE DEVICE CHIROPRAC 22579 SELENE MORTON TIC 5 TIF TIF MANIPULAT TOR TX SPINAL 3-4 REGIONS CHIROPRAC 86010 SELENE MORTON TIC 5 TIF TIF MANIPLTV TX EXTRASPIN AL 1/> REGION CHIROPRAC 28585 SELENE MORTON TIC 5 TIF TIF MANIPLTV TX EXTRASPIN AL 1/> REGION CHIROPRAC 24897 SELENE MORTON TIC 5 TIF TIF MANIPULAT [...] W/POS EQUIPME EQUIPME ARWAY PRESSURE DEVICE POLYSOM [address] [facility] [address] ASIM 6/>YRS 5 EAST EAST SLEEP W/CPAP 4/> ADDL BEE ATTND LUMB L0627 [facility]THOSIS 5 HOME HOME [facility] CNTRL EQUIPME EQUIPME RIGID A&P PANEL PREFAB TENS E0730 [facility] INC EMPI INC DEVICE 5 4/MORE LEADS MULTI NERVE STIMULATI ON CHIROPRAC 11536 SELENE MORTON TIC 5 TIF TIF MANIPULAT TOR TX SPINAL 3-4 REGIONS CHIROPRAC 92898 SELENE MORTON TIC 5 TIF TIF MANIPLTV [...] MEDICAL AIRWAY EQUIPME EQUIPME PRESSURE DEVICE CHIROPRAC 22750 SELENE MORTON TIC 4 TIF TIF MANIPULAT TOR TX SPINAL 3-4 REGIONS CHIROPRAC 98716 SELENE MORTON TIC 4 TIF TIF MANIPLTV TX EXTRASPIN AL 1/> REGION TENS E0730 [facility] INC EMPI INC DEVICE 4 4/MORE LEADS MULTI NERVE STIMULATI ON THERAPEUT 01263 ANATOLIY COPE IC PX 1/> 4 MEM [...] W/POS EQUIPME EQUIPME ARWAY PRESSURE DEVICE THERAPEUT 96087 ANATOLIY MILLERON IC PX 1/> 4 [facility] AREAS INC INC EACH 15 MIN EXERCISES APPL 58461 ANATOLIY ANATOLIY MODALITY 4 [facility] 1/> AREAS INC INC ELEC STIMJ EA 15 MIN CHIROPRAC 13585 SELENE MORTON TIC 4 TIF TIF MANIPULAT TOR TX SPINAL 3-4 REGIONS CHIROPRAC 65523 SELENE MORTON TIC 4 TIF TIF MANIPLTV TX EXTRASPIN AL 1/> REGION THERAPEUT 80911 ANATOLIY COPE IC PX 1/> 4 [facility] AREAS INC INC EACH 15 MIN EXERCISES THERAPEUT 39451 ANATOLIY ANATOLIY IC PX 1/> 4 [facility] AREAS INC INC EACH 15 MIN EXERCISES CHIROPRAC 73052 SELENE MORTON TIC 4 TIF TIF MANIPULAT TOR TX SPINAL 3-4 REGIONS CHIROPRAC 31834 SELENE MORTON TIC 4 TIF TIF MANIPLTV TX EXTRASPIN AL 1/> REGION APPL 98426 SELENE MORTON MODALITY 4 TIF TIF 1/> AREAS ELEC STIMJ UNATTENDE D CHIROPRAC 27980 SELENE MORTON TIC 4 TIF TIF MANIPLTV TX EXTRASPIN AL 1/> REGION CHIROPRAC 87020 SELENE MORTON TIC 4 TIF TIF MANIPULAT TOR TX SPINAL 3-4 REGIONS CHIROPRAC 47853 SELENE MORTON TIC 4 TIF TIF MANIPULAT TOR TX SPINAL 3-4 REGIONS CHIROPRAC 16294 SELENE MORTON TIC 4 TIF TIF MANIPLTV TX EXTRASPIN AL 1/> REGION APPL 87057 SELENE MORTON MODALITY 4 TIF TIF 1/> AREAS ELEC STIMJ UNATTENDE D APPL 69791 SELENE MORTON MODALITY 4 TIF TIF 1/> AREAS ELEC STIMJ UNATTENDE D CHIROPRAC 70990 SELENE MORTON TIC 4 TIF TIF MANIPLTV TX EXTRASPIN AL 1/> REGION CHIROPRAC 43407 SELENE MORTON TIC 4 TIF TIF MANIPULAT TOR TX SPINAL 3-4 REGIONS CHIROPRAC 36434 SELENE MORTON TIC 4 TIF TIF MANIPULAT TOR TX SPINAL 3-4 REGIONS CHIROPRAC 64923 SELENE MORTON TIC 4 TIF TIF MANIPLTV TX EXTRASPIN AL 1/> REGION APPL 10339 SELENE MORTON MODALITY 4 TIF TIF 1/> AREAS ELEC STIMJ UNATTENDE D RINGERS J7120 JESSICA FARMER LACTATE 4 E. FARMER CRISTY INFUSION MDPLC UP TO 1000 CC RINGERS J7120 JESSICA FARMER LACTATE 4 E. FARMER CRISTY INFUSION MDPLC UP TO 1000 CC LIPID 45861 ANATOLIY COPE PANEL 4 [facility] INC INC HEPATIC 57932 ANATOLIY COPE FUNCTION 4 [facility] PANEL INC INC PROF SVCS 15897 SWAPNA SWAPNA ALLG 4 BRIANNA BRIANNA IMMNTX X W/PRV ALLGIC XTRCS NJXS HUMDIFIR E0562 [facility] BARTHOLOMEW HEATED 4 HOME HOME USED MEDICAL MEDICAL W/POS EQUIPME EQUIPME ARWAY PRESSURE DEVICE PRESSURIZ 44122 [facility] ED/NONPRE [address] [place] [address] SSURIZED INHALATIO N TREATMENT INJECTION J[address] LIDOCAINE HCL INTRAVENO US INFUS 10 MG COLOREC G[address] SCR; COLNSCPY NOT MEET HI RISK ANES 74349 BURBERRY BURBERRY LOWER 4 JEOVANNY JEOVANNY INTESTINE ENDOSCOPY DISTAL DUODENUM COLONOSCO 22392 JAKE BRIANNA JAKE BRIANNA PY FLX DX 4 W/COLLJ SPEC WHEN PFRMD APPLICATI 60115 [facility] COPE ON 4 [facility] MODALITY INC INC 1/> AREAS HOT/COLD PACKS APPL 00293 ANATOLIY COPE MODALITY 4 [facility] 1/> AREAS INC INC ULTRASOUN D EA 15 MIN APPL 13007 ANATOLIY COPE MODALITY 4 [facility] 1/> AREAS INC INC ELEC STIMJ UNATTENDE D THERAPEUT 01750 ANATOLIY COPE IC PX 1/> 4 [facility] AREAS INC INC EACH 15 MIN EXERCISES PHYSICAL 68300 ANATOLIY HENDERSON THERAPY 4 [facility] ELISHA EVALUATIO INC N PREPJ& 92690 SWAPNA LARSENHBURN ALLERGEN 4 BRIANNA BRIANNA IMMUNOTHE RAPY 1/CARDIAC SPECIALIST ANTIGEN FILTER A7038 [facility] PUMA DISPBL 4 [...] E AIRWAY EQUIPME EQUIPME PRESSURE DEVICE RADIOLOGI 54314 DANIEL SANCHEZ C EXAM 4 JACKSON JACKSON KNEE COMPLETE 4/MORE VIEWS SPMTRY 94402 SWAPNA SWAPNA W/VC 4 BRIANNA BRIANNA EXPIRATOR Y CELESTE W/WO MXML VOL VNTJ CHIROPRAC 06608 VIDYA DASILVA TIC 4 COL COL MANIPULAT TOR TX SPINAL 3-4 REGIONS MANUAL 23306 VIDYA DASILVA THERAPY 4 COL COL TQS 1/> REGIONS EACH 15 MINUTES CHIROPRAC 37651 VIDYA DASILVA TIC 4 COL COL MANIPULAT TOR TX SPINAL 3-4 REGIONS MANUAL 22681 VIDYA COTTERON THERAPY 4 COL COL TQS 1/> REGIONS EACH 15 MINUTES APPL 52843 VIDYA COTTERON MODALITY 4 COL COL 1/> AREAS TRACTION MECHANICA L APPL 60230 VIDYA HOPKINSESON MODALITY 4 COL COL 1/> AREAS ELEC STIMJ UNATTENDE D SCREENING G[address] MAMMOGRAP HY RICHY INCL CAD WHEN PERFORMD 30904 [facility] AIDED 4 [facility] DETECTION SCREENING MAMMOGRAP HY APPL 09367 VIDYA COTTERON MODALITY 4 COL COL 1/> AREAS ELEC STIMJ UNATTENDE D APPL 33067 VIDYA COTTERON MODALITY 4 COL COL 1/> AREAS TRACTION MECHANICA L MANUAL 06441 VIDYA COTTERON THERAPY 4 COL COL TQS 1/> REGIONS EACH 15 MINUTES CHIROPRAC 70735 VIDYA DASILVA TIC 4 COL COL MANIPULAT TOR TX SPINAL 3-4 REGIONS CHIROPRAC 50231 VIDYA COTTERON TIC 4 COL COL MANIPULAT TOR TX SPINAL 3-4 REGIONS MANUAL 45759 VIDYA COTTERON THERAPY 4 COL COL TQS 1/> REGIONS EACH 15 MINUTES APPL 29171 VIDYA COTTERON MODALITY 4 COL COL 1/> AREAS TRACTION MECHANICA L APPL 41175 VIDYA COTTERON MODALITY 4 COL COL 1/> AREAS ELEC STIMJ UNATTENDE D APPL 99358 VIDYA COTTERON MODALITY 4 COL COL 1/> AREAS ELEC STIMJ UNATTENDE D APPL 68420 VIDYA COTTERON MODALITY 4 COL COL 1/> AREAS TRACTION MECHANICA L MANUAL 13964 VIDYA HOPKINSESON THERAPY 4 COL COL TQS 1/> REGIONS EACH 15 MINUTES DRUG SCR G0434 ROC[facility] HAM ROC[facility] HAM NOT 4 CHROMATOG RAPHIC; ANY NUMBER PT ENC CHIROPRAC 87427 VIDYA DASILVA TIC 4 COL COL MANIPULAT TOR TX SPINAL 3-4 REGIONS SPACR A4627 MT MED MT MED BAG/RESRV 4 EQUIPMENT EQUIPMENT OR W/WO INC INC MASK W/METRD DOSE INHAL DEMO&/HYUN 70919 SWAPNA SWAPNA L OF PT 4 BRIANNA BRIANNA UTILIZ AERSL GEN/NEB/I NHLR/IP TUBING A7037 SWAPNA SWAPNA USED WITH 4 BRIANNA BRIANNA POSITIVE AIRWAY PRESSURE DEVICE BRNCDILAT 09021 SWAPNA SWAPNA RSPSE 4 BRIANNA BRIANNA SPMTRY PRE&POST- BRNCDILAT ADMN PRESSURIZ 92074 SWAPNA SWAPNA ED/NONPRE 4 BRIANNA BRIANNA SSURIZED INHALATIO N TREATMENT PERCUTANE 26110 SWAPNA SWAPNA OUS TESTS 4 BRIANNA BRIANNA W/ALLERGE ANCA EXTRACTS INTRACUTA 68441 SWAPNA SWAPNA NEOUS 4 BRIANNA BRIANNA TESTS W/ALLERGE ANCA EXTRACTS DETERMINA 32931 SCIFRES SCIFRES TION 4 ANG ANG REFRACTIV E STATE OPHTH 53920 SCIFRES SCIFRES MEDICAL 4 ANG ANG XM&EVAL COMPRE NEW PT 1/> VST APPL 57191 VIDYA DASILVA MODALITY 4 COL COL 1/> AREAS ELEC STIMJ UNATTENDE D APPL 40110 VIDYA COTTERON MODALITY 4 COL COL 1/> AREAS TRACTION MECHANICA L CHIROPRAC 48560 VIDYA DASILVA TIC 4 COL COL MANIPULAT TOR TX SPINAL 3-4 REGIONS DRUG SCR G0434 [facility] NOT 4 CHROMATOG RAPHIC; ANY NUMBER PT ENC MANUAL 47386 VIDYA DASILVA THERAPY 4 COL COL TQS 1/> REGIONS EACH 15 MINUTES APPLICATI 60698 VIDYA DASILVA ON 4 COL COL MODALITY [...] Date Code Location Performer Type Date OFFICE 00235 SELENE MORTON OUTPATIEN 5 5 [facility] T VISIT 10 MINUTES OFFICE 13879 [facility] PATHAK II OUTPATIEN 5 5 [facility] SLEEP JUSTIN T VISIT AND REHA 15 MINUTES HOSPITAL [facility] - 5 5 [facility] - 4 5 [facility] 4 4 [facility] 17424 [facility] VISIT CARDIOLOG 15 Y AT CENT MINUTES OFFICE 32217 SELENE SELENE OUTPATIEN 4 4 TIF TIF T NEW 30 MINUTES HOSPITAL [facility] - 4 4 [facility] OUTPATIEN CR[facility]ICAL ACCESS HOSPITAL [facility] - [address] [facility] OFF[facility] 50275 [facility] OUT[facility] 4 4 NAZANIN VISIT CARDIOLOG 15 Y AT CENT MINUTES [facility]OSPITAL [facility] - 4 4 [facility] OFFICE 42145 DANIEL SANCHEZ CONSULTAT 4 4 JACKSON RODRIGUEZ NEW/ESTAB PATIENT 60 MIN OFFICE 49023 SWAPNA BARCENAS OUTPATIEN 4 4 BRIANNA REED T VISIT 25 MINUTES OFFICE 50931 FREDI RAI OUTPATIEN 4 4 SARATH SARATH T VISIT 15 MINUTES OFFICE 92427 [facility] OUTPATIEN 4 4 T VISIT 15 MINUTES OFFICE 92241 VIDYA DASILVA OUTPATIEN 4 4 COL COL T VISIT 10 MINUTES OFFICE 40029 ROCIO JERAMIE [facility] OUTPATIEN 4 4 T VISIT 15 MINUTES OFFICE 43360 ROCI[facility]GLA BOBO [facility] OUTPATIEN 4 [address]IS[address] [facility] - 4 4 EAST OUTPATIEN T OFFICE 12425 ROCI[facility]GLA BOBO [facility] OUTPATIEN 4 4 T VISIT 15 MINUTES OFFICE 27905 MARTÍNEZ SOLIZ OUTPATIEN 4 4 NAZANIN NAZANIN T NEW 30 MINUTES OFFICE 40767 [facility] JERAMIE [facility] OUT[facility] 4 4 T VISIT 15 MINUTES OFFICE 42475 [facility] OUTPATIEN 4 4 T VISIT 15 MINUTES OFFICE 04643 SWAPNA BARCENAS CONSULTAT 4 4 BRIANNA BRIANNA ION NEW/ESTAB PATIENT 80 MIN OFFICE 07910 VIDYA DASILVA OUTPATIEN 4 4 COL COL T NEW 20 MINUTES OFFICE 74980 ROCIO JERAMIE PHILLIP[facility]K [facility] OUTPATIEN 4 4 T NEW 45 MINUTES OFFICE 32359 ABDULKADIRRODRIGUE ABDULKADIRRODRIGUE OUTPATIEN 4 4 SARATH SARATH T VISIT 15 MINUTES OFFICE 23196 FREDI RAI OUTPATIEN 4 4 SARATH SARATH T VISIT 15 MINUTES
--- OUTSIDE RECORDS SUMMARY | 2017-06-20 14:02 | External Medical Summary Rpt ---
Author Author [employer], [employer] Organization [employer] Address Unknown Phone Unavailable Results CBC W Auto Differential panel in Blood Observa Value Referen Units Interpr Notes Date tion ce etation Range Basophils 0 - 0.2 K/MM3 Normal No Jun 14 inform2016 [#/volume on in 10:03 AM ] in source Blood by data Automated count Basophils 0.1 - 2.0 % Normal No Jun 14 inform2016 leukocyte on in 10:03 AM s in source Blood by data Automated count Eosinophi 0.0 - 0.4 K/mm3 Normal No Jun 14 ls informati 2016 [#/volume on in 10:03 AM ] in source Blood by data Automated count Eosinophi 0.1 - % Normal No Jun 14 ls/100 12.0 inform2016 leukocyte on in 10:03 AM s in source Blood by data Automated count Granulocy 1.8 - 7.8 K/mm3 High No Jun 14 paty inform2016 [#/volume on in 10:03 AM ] in source Blood by data Automated count Granulocy 37.0 - % Normal No Jun 14 payt/100 80.0 inform2016 leukocyte on in 10:03 AM s in source Blood by data Automated count Hematocri 37.0 - % Normal No Jun 14 t [Volume 47.0 ati 2016 on in 10:03 AM Fraction] source of Blood data Hemoglobi 12.2 - g/dL Normal No Jun 14 n 16.2 informati 2016 [Mass/vol on in 10:03 AM ume] in source Blood data Lymphocyt 0.7 - 4.5 K/mm3 Normal No Jun 14 es informati 2016 [#/volume on in 10:03 AM ] in source Unspecifi data ed specimen by Automated count Lymphocyt 10 - 50.0 % Normal No Jun 14 es informati 2016 [#/volume on in 10:03 AM ] in source Unspecifi data ed specimen by Automated count Erythrocy 27 - 31.2 pg Normal No Jun 14 te mean inform2016 corpuscul on in 10:03 AM ar source hemoglobi data n [Entitic mass] Erythrocy 31.8 - g/dl Normal No Jun 14 te mean 35.4 2016 corpuscul on in 10:03 AM ar source hemoglobi data n concentra tion [Mass/vol ume] by Automated count Erythrocy 82.2 - fl Normal No Jun 14 te mean 97.8 2016 corpuscul on in 10:03 AM ar volume source [Entitic data volume] by Automated count Monocytes 0.1 - 1.0 K/mm3 Normal No Jun 142016 [#/volume on in 10:03 AM ] in source Blood by data Automated count Monocytes 1.7 - 9.3 % Normal No Jun 14 /100 2016 leukocyte on in 10:03 AM s in source Blood by data Automated count Platelet 7.4 - fl Low No Jun 14 mean 10.4 2016 volume on in 10:03 AM [Entitic source volume] data in Blood by Automated count Platelets 142 - 424 K/mm3 Normal No Jun 142016 [#/volume on in 10:03 AM ] in source Blood data Erythrocy 4.2 - 5.4 M/mm3 Normal No Jun 14 paty 2016 [#/volume on in 10:03 AM ] in source Amniotic data fluid Erythrocy 11.5 - % Normal No Jun 14 te 17.5 2016 distribut on in 10:03 AM ion width source [Entitic data volume] by Automated count Leukocyte 4.8 - K/MM3 High No Jun 14 s 10.8 2016 [#/volume on in 10:03 AM ] in source Blood data Erythrocyte sedimentation rate by Westergren method Observa Value Referen Units Interpr Notes Date tion ce etation Range Erythrocy 0 - 30 mm/hr Normal No Jun 14 te 2016 sedimenta on in 10:03 AM tion rate source by data Westergre n method Basic metabolic panel in Blood Observa Value Referen Units Interpr Notes Date tion ce etation Range Urea 7 - 18 mg/dL Normal No Apr 29 nitrogen 2016 2:23 [Mass/vol on in PM ume] in source Serum or data Plasma Calcium 8.5 - mg/dL Normal No Apr 29 [Mass/vol 10.1 2016 2:23 ume] in on in PM Serum or source Plasma data Chloride 98 - 107 mmoL/L Normal No Apr 29 [Moles/vo informati 2016 2:23 lume] in on in PM Serum or source Plasma data Carbon 21.0 - mmoL/L Normal No Apr 29 dioxide, 32.0 informati 2016 2:23 total on in PM [Moles/vo source lume] in data Serum or Plasma Creatinin 0.55 - mg/dL Normal No Apr 29 e 1.02 informati 2016 2:23 [Mass/vol on in PM ume] in source Serum or data Plasma Creatinin 50 - 200 ML/MIN Normal No Apr 29 e renal informati 2016 2:23 clearance on in PM source predicted data by Cockcroft -Gault formula Estimated 59- ML/MIN No REFERENCE Apr 29 informati RANGE: 2017 2:23 glomerula on in >60 PM r source ML/MIN/1. filtratio data 73 SQUARE n rate METERSIf (GF this patient is -A merican, then multiply theresult by 1.210. Glucose 74 - 106 mg/dL High No Apr 29 [Mass/vol ati 2016 2:23 ume] in on in PM Serum or source Plasma data Potassium 3.5 - 5.1 mmoL/L Normal No Apr 29 inform2016 2:23 [Moles/vo on in PM lume] in source Serum or data Plasma Sodium 136 - 145 mmoL/L Normal No Apr 29 [Moles/vo 2016 2:23 lume] in on in PM Serum or source Plasma data CBC W Auto Differential panel in Blood Observa Value Referen Units Interpr Notes Date tion ce etation Range Basophils 0 - 0.2 K/MM3 Normal No Apr 29 inform2016 2:23 [#/volume on in PM ] in source Blood by data Automated count Basophils 0.1 - 2.0 % Normal No Apr 29 /100 informati 2016 2:23 leukocyte on in PM [...] High No Apr 29 paty/100 80.0 informati 2017 2:23 leukocyte on in PM s in source Blood by data Automated count Hematocri 37.0 - % Normal No Apr 29 t [Volume 47.0 2016 2:23 on in PM Fraction] source of Blood data Hemoglobi 12.2 - g/dL No No Apr 29 n 16.2 informati informati 2016 2:23 [Mass/vol on in on in PM ume] in source source Blood data data Lymphocyt 0.7 - 4.5 K/mm3 Normal No Apr 29 es informati 2016 2:23 [#/volume on in PM ] in source Unspecifi data ed specimen by Automated count Lymphocyt 10 - 50.0 % Normal No Apr 29 inform2016 2:23 [#/volume [...] - 1.0 K/mm3 Normal No Apr 29 inform2016 2:23 [#/volume on in PM ] in source Blood by data Automated count Monocytes 1.7 - 9.3 % Normal No Apr 29 / informati 2017 2:23 leukocyte on in PM s in source Blood by data Automated count Platelet 7.4 - fl Low No Apr 29 mean 10.4 informati 2016 2:23 volume on in PM [Entitic source volume] data in Blood by Automated count Platelets 142 - 424 K/mm3 Normal No Apr 29 informati 2016 2:23 [#/volume on in PM ] in source Blood data Erythrocy 4.2 - 5.4 M/mm3 Normal No Apr 29 paty informati 2017 2:23 [#/volume on in PM ] in source Amniotic data fluid Erythrocy 11.5 - % Normal No Apr 29 te 17.5 informati 2017 2:23 distribut on in PM ion width source [Entitic data volume] by Automated count Leukocyte 4.8 - K/MM3 Normal No Apr 29 s 10.8 informati 2017 2:23 [#/volume on in PM ] in source Blood data Cobalamin (Vitamin B12) [Mass/volume] in Serum Observa Value Referen Units Interpr Notes Date tion ce etation Range Cobalamin 211 - 946 pg/mL No Performed Apr 19 (Vitamin informati at: CB 2017 4:17 B12) on in - [facility] PM [Mass/vol source ume] in data [place] [address] Serum 0 [place], [place] [id number] Medicinal Chemist: Rex Nova PhD, Phone: [phone] Folate [Mass/volume] in Serum or Plasma [...] mg/dL Normal No Apr 19 .total informati 2017 4:17 [Mass/vol on in PM ume] in source Serum or data Plasma Urea 7 - 18 mg/dL Normal No Apr 19 nitrogen informati 2017 4:17 [Mass/vol on in PM ume] in [...] mmoL/L Normal No Apr 19 dioxide, 32.0 inform2016 4:17 total on in PM [Moles/vo source lume] in data Serum or Plasma Creatinin 0.55 - mg/dL Normal No Apr 19 e 1.02 informati 2016 4:17 [Mass/vol on in PM ume] in source Serum or data Plasma Estimated 59- ML/MIN No REFERENCE Apr 19 informati RANGE: 2016 4:17 glomerula on in >60 PM r source ML/MIN/1. filtratio data 73 SQUARE n rate METERSIf (GF this patient is -A merican, then multiply theresult by 1.210. Globulin 1.3 - 3.2 gm/dL Normal No Apr 19 [Mass/vol informati 2016 4:17 ume] in on in PM Serum source data Glucose 74 - 106 mg/dL High No Apr 19 [Mass/vol informati 2016 4:17 ume] in on in PM Serum or source Plasma data Potassium 3.5 - 5.1 mmoL/L Normal No Apr 192016 4:17 [Moles/vo on in PM lume] in source Serum or data Plasma Sodium 136 - 145 mmoL/L Low No Apr 19 [Moles/vo informati 2016 4:17 lume] in on in PM Serum or source Plasma data Aspartate 15 - 37 U/L Normal No Apr 19 informati 2016 4:17 aminotran on in PM sferase source [Enzymati data c activity/ volume] in Serum or Plasma Alanine 12 - 78 U/L Normal No Apr 19 aminotran informati 2016 4:17 sferase on in PM [Enzymati [...] 0 - 0.2 K/MM3 Normal No Apr 19 informati 2017 4:17 [#/volume on in PM ] in source Blood by data Automated count Basophils 0.1 - 2.0 % Normal No Apr 19 /100 informati 2016 4:17 leukocyte on in PM s in source Blood by data Automated count Eosinophi 0.0 - 0.4 K/mm3 Normal No Apr 19 ls informati 2016 4:17 [#/volume on in PM ] in source Blood by data Automated count Eosinophi 0.1 - % Normal No Apr 19 ls/100 12.0 informati 2016 4:17 leukocyte on in PM s in source Blood by data Automated count Granulocy 1.8 - 7.8 K/mm3 Normal No Apr 19 paty informati 2016 4:17 [#/volume on in PM ] in source Blood by data Automated count Granulocy 37.0 - % Normal No Apr 19 paty/100 80.0 informati 2016 4:17 leukocyte on in PM s in source Blood by data Automated count Hematocri 37.0 - % Low No Apr 19 t [Volume 47.0 informati 2016 4:17 on in PM Fraction] source of Blood data Hemoglobi 12.2 - g/dL Normal No Apr 19 n 16.2 informati 2016 4:17 [Mass/vol on in PM ume] in source Blood data Lymphocyt 0.7 - 4.5 K/mm3 Normal No Apr 19 es inform2016 4:17 [#/volume on in PM ] in source Unspecifi data ed specimen by Automated count Lymphocyt 10 - 50.0 % Normal No Apr 19 es 2016 4:17 [#/volume on in PM ] in source Unspecifi data ed specimen by Automated count Erythrocy 27 - 31.2 pg Normal No Apr 19 te mean informati 2016 4:17 corpuscul on in PM [...] 0.1 - 1.0 K/mm3 Normal No Apr 19 informati 2016 4:17 [#/volume on in PM ] in source Blood by data Automated count Monocytes 1.7 - 9.3 % Normal No Apr 19 /100 informati 2016 4:17 leukocyte on in PM s in source Blood by data Automated count Platelet 7.4 - fl Low No Apr 19 mean 10.4 inform2016 4:17 volume on in PM [Entitic source volume] data in Blood by Automated count Platelets 142 - 424 K/mm3 Normal No Apr 19 inform2016 4:17 [#/volume on in PM ] in source Blood data Erythrocy 4.2 - 5.4 M/mm3 Low No Apr 19 paty informati 2016 4:17 [#/volume on in PM ] in source Amniotic data fluid Erythrocy 11.5 - % Normal Apr 19 te 17.5 informati 2016 4:17 [...] etation Range Thyrotrop 0.358 - uIU/ml No Apr 19 in 3.740 informati informati 2016 4:16 [Units/vo on in on in PM lume] in source source Serum or data data Plasma Hemoglobin A1c in Blood Observa Value Referen Units Interpr Notes Date tion ce etation Range Hemoglo 6.0 0.0 - % Normal < 6% Apr 19 bin A1c 7.0 [facility] Blood LEVEL< 7% CONTROL LED DIABETI C LEVEL> 8% POORLY CONTROL LED DIABETI C LEVEL
--- OUTSIDE RECORDS SUMMARY | 2017-06-20 14:02 | External Medical Summary Rpt ---
[...] 37.0 - % Normal No Jun 14 paty/100 80.0 inform2016 leukocyte on in 10:03 AM [...] [facility] PM [Mass/vol source ume] in data [place] [address] Serum 0 [place], [place] [id number] Manager Drilling: Rex Nova PhD, Phone: [phone] Folate [Mass/volume] in Serum or Plasma [...] 19 bin A1c 7.0 [facility] Blood LEVEL< 7% CONTROL LED DIABETI C LEVEL> 8% POORLY CONTROL LED DIABETI C LEVEL
--- NOTE | 2017-06-20 14:13 | RADIOLOGY REPORT PS360 ---
CT LUMBAR SPINE W/O CONTRAST COMPARISON: CT scan lumbar spine 06/20/2014 HISTORY: Chronic lower back pain TECHNIQUE: Multiple axial scans of the lumbar spine were obtained. Sagittal and coronal reformats were evaluated as well. FINDINGS: There is mild dextroscoliotic curvature of the lower lumbar spine. All lumbar vertebrae appear intact. There is moderate endplate sclerosis at the L2-3, L3-4 and L5-S1 levels. There is what appears be a small extruded disc fragment with partial calcification of the fragment posterior to the L3 vertebral body and this is a new finding not having been seen on the previous CT scan lumbar spine. This does cause prominent compromise, of the spinal canal at this level. There are prominent hypertrophic facet changes at L3-4 L4-5 and L5-S1 level. There are vacuum phenomenon of the L2-3, L3-4 and L5-S1 disc. There is moderate arteriosclerotic calcification of the abdominal aorta and proximal iliac arteries but there is no aneurysm. There is mild sclerosis of the left SI joint. IMPRESSION: Prominent multilevel degenerative disc disease with what is likely a partially calcified extruded disc fragment posterior to the L3 vertebral body which causes compromise of the spinal canal at this level. Certainly the multilevel hypertrophic facet changes could be a cause for low back pain
--- NOTE | 2017-06-20 14:16 | RADIOLOGY REPORT PS360 ---
CT EXT.LOWER-LT-W/O CONTRAST COMPARISON: Left hip 06/14/2017 HISTORY: Chronic left hip pain TECHNIQUE: Multiple axial scans of the left hip were obtained. Sagittal and coronal reformats were evaluated as well. FINDINGS: There is mild asymmetrical joint space narrowing. The femoral head and neck appear intact. There is minimal spurring of the superior and inferior lip of the acetabulum. The left pubic bones appear intact. There is sclerosis of the inferior third of the left SI joint. IMPRESSION: Mild osteoarthritic change left hip and left SI joint.
[2017-06-20 14:27] LABS: LYMPH # 2.1 K/mm3 (0.7-4.5); LYMPH % 15.1 % (10-50.0)
[2017-06-20 14:31] LABS: HEMOGLOBIN 15.3 g/dL (12.2-16.2)
[2017-06-20 15:26] LABS: URINE BILIRUBIN - DIPSTICK NEGATIVE (NEG); URINE BLOOD NEGATIVE (NEG)
[2017-06-20] MEDS ORDERED: MEDROL 4MG. DOSE4 MG PO (15:27)
[2017-06-20] MEDS ORDERED: ZANTAC 150150 MG PO (15:27)
[2017-06-20 15:38] LABS: AMPHETAMINES/METAMPHETAMINES POSITIVE ng/mL (<1000)
[2017-06-20 16:01] VITALS: BP 155/86
== END 2017-06-20 16:02 | disposition home or self-care (01) ==
LOC: ER 12:41
PROVIDERS: Emergency Medicine
DX: M51.16 Intervertebral disc disorders with radiculopathy, lumbar region (principal); M54.32 Sciatica, left side; F17.210 Nicotine dependence, cigarettes, uncomplicated; J45.909 Unspecified asthma, uncomplicated; I10 Essential (primary) hypertension; I25.10 Atherosclerotic heart disease of native coronary artery without angina pectoris; Z88.0 Allergy status to penicillin; Z88.2 Allergy status to sulfonamides; Z88.6 Allergy status to analgesic agent; R82.99 Other abnormal findings in urine